=== PATIENT | female | born 1945 | race Caucasian/White ===

== ENCOUNTER 2018-01-30 18:44 | Inpatient (IN) ==
[2018-01-30] MEDS ORDERED: Heparin 10,000 UNITS/10 ML Vial (for IV use) IV.PUSH STA ×2 (19:02→20:54)
[2018-01-30] MEDS ORDERED: Succinylcholine Inj 100 MG/5 ML Syringe IV.PUSH ONE (19:11)
[2018-01-30] MEDS ORDERED: Etomidate Inj 20 MG/10 ML Ampul IV.PUSH ONE (19:11)
[2018-01-30] MEDS ORDERED: Sod Chloride 0.9% Inj 1,000 ML IV.SIG SCH (19:15)
[2018-01-30] MEDS ORDERED: Succinylcholine Inj 200 MG/10 ML Vial IV.PUSH ONE (19:15)
--- NOTE | 2018-01-30 19:36 | XR ---
EXAM DATE: 01/30/2018 7:30 PM EDT AGE/SEX: 72 years / Female INDICATIONS: Shortness of breath. CLINICAL DATA: This is the patient's initial encounter. Patient reports that signs and symptoms have been present for 1 day and indicates a pain score of 0/10. MEDICAL/SURGICAL HISTORY: None. None. COMPARISON: No prior exams available for comparison. FINDINGS: There is mild haziness to the perivascular structures most likely pulmonary edema. Slight cardiomegaly seen. Focal consolidation is not seen. CONCLUSION: Slight CHF. Electronically signed by: Renetta Santos MD 01/30/2018 7:35 PM EDT
--- NOTE | 2018-01-30 19:43 | ED ---
HPI General Chief Complaint: Chest Pain Stated Complaint: sob/chest pain Time Seen by Provider: 01/30/18 18:55 Source: patient and family Mode of arrival: ambulatory Limitations: altered mental status History of Present Illness HPI narrative: 72-year-old female complains of chest pain and shortness of breath. Patient states that the chest pain started last night. Patient states that the chest pain pressure pain across the anterior chest without radiation. Patient denies palpitation nausea diaphoresis. Patient has history of COPD. Patient is on home O2. Patient states that his chest pain short of breath is worse this afternoon. Patient became lethargic and dusky on the face. Patient was driven by her to the emergency room by private vehicle. Upon arrival patient's lethargic and unable to provide information. Patient has history of hypertension. Patient's denies any history of diabetes or high lipidemia. Patient is a non-smoker. Patient has been reported no history OH or CAD. MD complaint: chest pain Complete Quality Measures for STEMI Alert Patients STEMI Alert: No Onset (ago): hour(s) Duration: constant Onset: during rest Pain location: substernal Severity: moderate Severity scale (1-10): 5 Quality: tightness and heaviness Pain radiation: none Relieving factors: nothing Exacerbating factors: nothing Associated symptoms: dyspnea Related Data Home Medications Medication Instructions Recorded Confirmed Lactobacillus acidophilus 100 mg PO DAILY 01/30/18 01/30/18 [Acidophilus] acetylcysteine 01/30/18 alprazolam 1 mg PO DAILY 01/30/18 01/30/18 amlodipine [Norvasc] 10 mg PO DAILY 01/30/18 01/30/18 carvedilol 6.25 mg PO BID 01/30/18 01/30/18 cetirizine 10 mg PO DAILY 01/30/18 01/30/18 cranberry 400 mg PO DAILY 01/30/18 01/30/18 cyanocobalamin (vitamin B-12) 1,000 mcg PO DAILY 01/30/18 01/30/18 dicyclomine 20 mg PO QID 01/30/18 01/30/18 dorzolamide [Trusopt] 1 drp OPHTHALMIC (EYE) TID 01/30/18 01/30/18 ferrous sulfate 325 mg PO DAILY 01/30/18 01/30/18 fluocinonide 1 applic TOPICAL BID 01/30/18 01/30/18 fluoxetine [Prozac] 40 mg PO BID 01/30/18 01/30/18 fluticasone [Flovent HFA] 1 puff INHALATION Q12H 01/30/18 01/30/18 furosemide [Lasix] 40 mg PO BID 01/30/18 01/30/18 gabapentin 600 mg PO TID 01/30/18 01/30/18 hydrocortisone 1 applic TOPICAL BID 01/30/18 01/30/18 hyoscyamine sulfate [Levsin] 0.125 mg PO QID 01/30/18 01/30/18 ipratropium bromide [Atrovent HFA] 1 puff INHALATION Q6H 01/30/18 01/30/18 lansoprazole [Prevacid] 30 mg PO DAILY 01/30/18 01/30/18 levalbuterol HCl [Xopenex] 1.25 mg INHALATION Q4-6H PRN 01/30/18 01/30/18 levofloxacin [Levaquin] 5 mg/kg PO Q12H 01/30/18 01/30/18 levothyroxine 50 mcg PO DAILY 01/30/18 01/30/18 lidocaine HCl 1 applic TOPICAL DAILY PRN 01/30/18 01/30/18 melatonin 10 mg PO HS PRN 01/30/18 01/30/18 metronidazole 1 applic TOPICAL DAILY 01/30/18 01/30/18 mometasone [Elocon] 1 applic TOPICAL DAILY 01/30/18 01/30/18 mometasone [Nasonex] 2 spray INTRANASAL DAILY 01/30/18 01/30/18 montelukast [Singulair] 10 mg PO QPM 01/30/18 01/30/18 multivitamin 1 tab PO DAILY 01/30/18 01/30/18 omega 2-lnm-dba-fish oil [[place]-3] 01/30/18 ondansetron HCl 4 mg PO Q6-8H PRN 01/30/18 01/30/18 potassium chloride [Klor-Con M20] 20 meq PO BID 01/30/18 01/30/18 pravastatin [Pravachol] 40 mg PO DAILY 01/30/18 01/30/18 ramelteon [Rozerem] 01/30/18 ropinirole [Requip] 0.25 mg PO TID 01/30/18 01/30/18 spironolactone [Aldactone] 01/30/18 temazepam [Restoril] 01/30/18 ziprasidone HCl [Geodon] 40 mg PO BID 01/30/18 01/30/18 Allergies Allergy/AdvReac Type Severity Reaction Status Date / Time EARL Inhibitors Allergy Anaphylaxis Verified 01/30/18 19:58 Alpha 2 Adrenergic Agonist Allergy Anaphylaxis Verified 01/30/18 19:58 ARB-Angiotensin Receptor Allergy Anaphylaxis Verified 01/30/18 19:59 Antagonist cefaclor Allergy Anaphylaxis Verified 01/30/18 20:01 codeine Allergy Anaphylaxis Verified 01/30/18 20:01 hydralazine Allergy Anaphylaxis Verified 01/30/18 20:02 hydrocodone Allergy Anaphylaxis Verified 01/30/18 20:03 levofloxacin Allergy Anaphylaxis Verified 01/30/18 20:03 meperidine Allergy Anaphylaxis Verified 01/30/18 20:04 nifedipine Allergy Anaphylaxis Verified 01/30/18 20:08 pseudoephedrine Allergy Anaphylaxis Verified 01/30/18 20:09 [From Sudafed] Sulfa (Sulfonamide Allergy Anaphylaxis Verified 01/30/18 20:09 Antibiotics) terconazole Allergy Anaphylaxis Verified 01/30/18 20:10 topiramate Allergy Anaphylaxis Verified 01/30/18 20:11 Review of Systems ROS: all other systems reviewed are negative PMFSH History History Provided By: Patient and Family Member Social History Social History Substance History: Unable to Obtain Smoking Status: Cognitive impairment How Often Do You Have a Drink Containing Alcohol: Unable to Obtain [facility] within the Last 8 Weeks: No Recent Out of Country Travel within the Last 8 Weeks: No Exam Narrative Exam Narrative: GENERAL: Well-nourished, well-developed patient. SKIN: Focused skin assessment warm/dry. HEAD: Normocephalic. EYES: No scleral icterus. No injection or drainage. Pupils 1.5 mm equal reactive. NECK: Supple, trachea midline. No JVD or lymphadenopathy. CARDIOVASCULAR: Regular rate and rhythm without murmurs, gallops, or rubs. RESPIRATORY: Lungs with poor air exchange, decreased breath sounds bilaterally with expiratory wheezes and diffuse rhonchi. GASTROINTESTINAL: Abdomen soft, non-tender, nondistended. MUSCULOSKELETAL: No cyanosis, or edema. BACK: Nontender without obvious deformity. No CVA tenderness. Neurologic exam: Patient is lethargic on arrival however more awake and alert and talking after was given BiPAP and oxygen treatment. Patient moves all extremity well. No obvious focal neurological deficit. Procedures Intubation Time Out Performed: Yes Sedative: etomidate Mg Given: 20 Paralytic: succinylcholine Mg Given: 100 Laryngoscope: fiber optic video scope Assist Device Used: fiber optic device ET Tube Size: 7.5 ET Tube Uncuffed: No Tube Secured Depth (cm): 23 Tube Secured Location: lips Tube Placement Confirmation: visualized tube passing through cords, equal breath sounds bilaterally, no breath sounds over epigastrium and confirmation by capnometry Patient Tolerated Procedure: well Intubation Complications: none Course Initial Documented Vital Signs Temperature 97.9 F 01/30/18 19:04 Pulse Rate 87 01/30/18 19:04 Respiratory Rate 22 01/30/18 19:04 Pulse Oximetry 100 01/30/18 19:04 Last Documented Vital Signs Temperature 97.9 F 01/30/18 19:04 Pulse Rate 69 01/30/18 21:27 Respiratory Rate 14 01/30/18 21:27 Blood Pressure 136/61 01/30/18 21:27 Pulse Oximetry 100 01/30/18 20:49 Critical Care Time Critical Care Time: Yes Total Critical Care Time: 60 Attestation: Aggregate critical care time was 60 minutes. Time to perform other separately billable procedures was not included in the critical care time. My time did not include minutes spent treating any other patients simultaneously or on activities that did not directly contribute to the patient's treatment. The services I provided to this patient were to treat and/or prevent clinically significant deterioration that could result in: I provided critical care services requiring my management, as noted below: Chart data review, documentation time, medication orders and management, vital sign assessments/reviewing monitor data, ordering and reviewing lab tests, ordering and interpreting/reviewing x-rays and diagnostic studies, care of the patient and discussion of the patient with the admitting physicians. Medical Decision Making MDM Narrative Medical decision making narrative: 72-year-old female presented with dusky face , respiratory distress, altered mental status. History of COPD. Patient having chest pain for the past 2 days. Patient was given BiPAP immediately and albuterol Atrovent unit dose treatment 3 immediately. Patient improved upon respiratory treatment and started talking and states that she having chest pain for the past 2 days. Patient denies any headache. Patient denies any abdominal pain. Patient denies any focal weakness or numbness of the extremity. EKG showed ST depression in inferior leads and ST elevation in anterior leads. EKG was sent to carpet or rug layer helper [employer]eg[employer] console operator track Dr. Burgess. Dr. Burgess advised intubation, CT scan of the brain and proceed subsequently. Patient was intubated without complication. Repeat EKG shows sinus rhythm nonspecific ST-T wave change. Patient was given heparin bolus and drip. Patient will be transferred to the intensive care at the [facility]. I spoke with Dr. Lopez, tool engineer who agreed to accept the patient. Medical Screen Exam Complete: Yes Emergency Medical Condition: Yes Lab Data Lab results reviewed: Yes I reviewed the patient's lab results. Result diagrams: 01/30/18 19:30 Lab Results 01/30/18 01/30/18 01/30/18 Range/Units 19:30 19:30 19:30 CBC w Diff Auto diff final WBC 11.8 H (4.0-11.0) th/mm3 RBC 3.48 L (4.00-5.30) mil/mm3 Hgb 10.5 L (11.6-15.3) gm/dL Hct 32.0 L (35.0-46.0) % MCV 92.1 (80.0-100.0) fL MCH 30.1 (27.0-34.0) pg MCHC 32.7 (32.0-36.0) % RDW 13.2 (11.6-17.2) % Plt Count 296 (150-450) th/mm3 MPV 7.7 (7.0-11.0) fL Neut % (Auto) 79.4 H (16.0-70.0) % Lymph % (Auto) 12.9 (9.0-44.0) % [place] % (Auto) 3.4 (0.0-8.0) % Eos % (Auto) 3.7 (0.0-4.0) % Baso % (Auto) 0.6 (0.0-2.0) % Neut # (Auto) 9.4 H (1.8-7.7) th/mm3 Lymph # (Auto) 1.5 (1.0-4.8) th/mm3 [place] # (Auto) 0.4 (0.0-0.9) th/mm3 Eos # (Auto) 0.4 (0.0-0.4) th/mm3 Baso # (Auto) 0.1 (0.0-0.2) th/mm3 WBC Differential . Differential Comment . PT 10.2 (9.8-11.6) sec INR 1.0 Ratio APTT 24.2 L (24.3-30.1) sec Puncture Site Patient Temperature O2 Saturation (90-100) % ABG pH (7.380-7.420) ABG pCO2 (38-42) mmHg ABG pO2 (61-120) mmHg ABG HCO3 (22-26) mmol/L ABG O2 Content (12.0-20.0) Vol % ABG Base Excess (-2-2) mmol/L ABG Methemoglobin (0-2) % Matteo Test Hemoglobin (12.0-16.0) G/DL Carboxyhemoglobin (0-4) % O2 Delivery Device Vent Setting Inspired O2 % Critical Value Calcium 8.4 L (8.5-10.1) mg/dL Magnesium 1.9 (1.5-2.5) mg/dL Total Creatine Kinase 77 (26-192) U/L Troponin I 0.03 (0.02-0.05) ng/mL B-Natriuretic Peptide (0-100) pg/mL 01/30/18 01/30/18 Range/Units 19:30 21:38 CBC w Diff WBC (4.0-11.0) th/mm3 RBC (4.00-5.30) mil/mm3 Hgb (11.6-15.3) gm/dL Hct (35.0-46.0) % MCV (80.0-100.0) fL MCH (27.0-34.0) pg MCHC (32.0-36.0) % RDW (11.6-17.2) % Plt Count (150-450) th/mm3 MPV (7.0-11.0) fL Neut % (Auto) (16.0-70.0) % Lymph % (Auto) (9.0-44.0) % [place] % (Auto) (0.0-8.0) % Eos % (Auto) (0.0-4.0) % Baso % (Auto) (0.0-2.0) % Neut # (Auto) (1.8-7.7) th/mm3 Lymph # (Auto) (1.0-4.8) th/mm3 [place] # (Auto) (0.0-0.9) th/mm3 Eos # (Auto) (0.0-0.4) th/mm3 Baso # (Auto) (0.0-0.2) th/mm3 WBC Differential Differential Comment PT (9.8-11.6) sec INR Ratio APTT (24.3-30.1) sec Puncture Site Right radial Patient Temperature 98.6 O2 Saturation 98 (90-100) % ABG pH 7.35 L (7.380-7.420) ABG pCO2 53 H* (38-42) mmHg ABG pO2 429 H (61-120) mmHg ABG HCO3 29 H (22-26) mmol/L ABG O2 Content 14.1 (12.0-20.0) Vol % ABG Base Excess 3.3 H (-2-2) mmol/L ABG Methemoglobin 1.4 (0-2) % Matteo Test Y Hemoglobin 9.5 L (12.0-16.0) G/DL Carboxyhemoglobin 1.1 (0-4) % O2 Delivery Device Ventilator Vent Setting Prvc/ac Inspired O2 100 % Critical Value Yes Calcium (8.5-10.1) mg/dL Magnesium (1.5-2.5) mg/dL Total Creatine Kinase (26-192) U/L Troponin I (0.02-0.05) ng/mL B-Natriuretic Peptide 207 H (0-100) pg/mL Imaging Data Attestation: I personally reviewed and interpreted this imaging study as follows : Radiologist's impression: Chest X-Ray 01/30/18 19:03 CONCLUSION: Slight CHF. Head CT 01/30/18 19:12 CONCLUSION: Unremarkable study except for mild chronic sinusitis. Chest X-Ray 01/30/18 19:13 CONCLUSION: Slight CHF. Discharge Plan Discharge Disposition Patient Disposition: 30 Still Patient Discharge Details Diagnosis: Respiratory failure, Chest pain Physicians Team ED Provider: Erickson Pena Primary Care Provider: UNKNOWN, Attending Provider: Pablito Lopez Status ED Status: Admitted Patient
[2018-01-30 19:45] LABS: Baso # (Auto) 0.1 th/mm3 (0.0-0.2); Baso % (Auto) 0.6 % (0.0-2.0); Eos # (Auto) 0.4 th/mm3 (0.0-0.4); Eos % (Auto) 3.7 % (0.0-4.0); Hemoglobin 10.5 gm/dL (11.6-15.3); Lymph # (Auto) 1.5 th/mm3 (1.0-4.8); Lymph % (Auto) 12.9 % (9.0-44.0); Mean Corpuscular HGB Conc 32.7 % (32.0-36.0); Mean Corpuscular Hemoglobin 30.1 pg (27.0-34.0); Mean Corpuscular Volume 92.1 fL (80.0-100.0); Mean Platelet Volume 7.7 fL (7.0-11.0); Mono # (Auto) 0.4 th/mm3 (0.0-0.9); Mono % (Auto) 3.4 % (0.0-8.0); Neut # (Auto) 9.4 th/mm3 (1.8-7.7); Neut % (Auto) 79.4 % (16.0-70.0); Platelet Count 296 th/mm3 (150-450); Red Blood Count 3.48 mil/mm3 (4.00-5.30); Red Cell Distribution Width 13.2 % (11.6-17.2); White Blood Count 11.8 th/mm3 (4.0-11.0)
[2018-01-30 19:53] LABS: Calcium 8.4 mg/dL (8.5-10.1)
[2018-01-30 19:54] LABS: Magnesium 1.9 mg/dL (1.5-2.5)
[2018-01-30] MEDS: Propofol 1000 mg/100 ml Inj 1,000 MG/100 ML BOTTLE IV.CONT PRN ×2 (19:55→22:45)
[2018-01-30 19:56] LABS: Activated Partial Thrombo Time 24.2 sec (24.3-30.1); Prothrombin Time 10.2 sec (9.8-11.6)
[2018-01-30] MEDS ORDERED: fentaNYL 10 mcg/mL Premix Drip 2,500 MCG/250 ML BAG IV.SIG PRN (19:59)
[2018-01-30 20:02] LABS: Troponin I 0.03 ng/mL (0.02-0.05)
--- NOTE | 2018-01-30 20:16 | XR ---
EXAM DATE: 01/30/2018 8:00 PM EDT AGE/SEX: 72 years / Female INDICATIONS: Post intubation. CLINICAL DATA: This is the patient's subsequent encounter. Patient reports that signs and symptoms h ave been present for 1 day and indicates a pain score of Nonresponsive. MEDICAL/SURGICAL HISTORY: None. None. COMPARISON: [facility], CHEST 1V SINGLE AP, 01/30/2018. . FINDINGS: There is mild haziness to the perivascular structures most likely pulmonary edema. Slight cardiomegaly seen. Focal consolidation is not seen. ET tube is present with tip overlapping approxim ately 2 above the shiv. CONCLUSION: Slight CHF. Electronically signed by: Renetta Santos MD 01/30/2018 8:14 PM EDT
--- NOTE | 2018-01-30 20:43 | CT ---
EXAM DATE: 01/30/2018 8:38 PM EDT AGE/SEX: 72 years / Female INDICATIONS: Altered mental status. CLINICAL DATA: This is the patient's initial encounter. Patient reports that signs and symptoms have been present for 1 day and indicates a pain score of Nonresponsive. MEDICAL/SURGICAL HISTORY: Non-responsive. Non-responsive. RADIATION DOSE: 56.61 CTDI (mGy) COMPARISON: No prior exams available for comparison. TECHNIQUE: CT of the head without contrast. Using automated exposure control and adjustment of the mA and/or kV according to patient size, radiation dose was kept as low as reasonably achievable to ob tain optimal diagnostic quality images. DICOM format image data is available electronically for revi ew and comparison. FINDINGS: There is no evidence for intracranial hemorrhage, mass effect, mass lesions, edema, or extr a-axial fluid collections. The visualized bony structures appear intact. The ventricles are normal size for the patient's age. There are no signs of acute infarction for technique. There is mucoperi osteal thickening within multiple sinuses. CONCLUSION: Unremarkable study except for mild chronic sinusitis. Electronically signed by: Renetta Santos MD 01/30/2018 8:42 PM EDT
[2018-01-30] MEDS: Heparin Drip 25,000 UNIT/250 ML BAG IV.CONT PRN (21:19)
[2018-01-30 21:50] LABS: ABG Base Excess 3.3 mmol/L (-2-2); ABG PCO2 53 mmHg (38-42); ABG PO2 429 mmHg (61-120)
[2018-01-30] MEDS ORDERED: MethylPREDNISolone Sod Succinate Inj 125 MG/2 ML Vial IV.PUSH ONE (21:58)
[2018-01-30 23:17] LABS: Bilirubin,Urine Negative (Negative); Clarity,Urine Slightly Cloudy (Clear); Color,Urine Yellow (Yellw/Straw); Glucose,Urine (UA) Negative (Negative); Leukocyte Esterase,Urine Negative (Negative); Nitrite,Urine Positive (Negative); Urobilinogen,Urine 0.2 mg/dL (Less than 2)
[2018-01-30 23:21] LABS: Bacteria,Urine Many /hpf; RBC,Urine 0-3 /hpf (0-3); Squamous Epithelial Cell,Urine 0-5 /hpf (0-5)
[2018-01-30 23:22] LABS: Hyaline Casts,Urine 0-3 /lpf (0-3)
--- NOTE | 2018-01-30 23:43 | P.HPCC ---
History of Present Illness Primary Care Physician: UNKNOWN History of Present Illness: 72-year-old female presented to the emergency department at [facility] with complaints of chest pain and shortness of breath. Per chart review the chest pain started last night. The nature of the chest pain was pressure pain across the anterior chest without radiation. No palpitation nausea diaphoresis. Patient has history of COPD. The patient is on home O2. Per chart review the chest pain associated with shortness of breath was worsening this afternoon. Patient became lethargic and dusky on the face. Patient was driven by her to the emergency room by private vehicle. Upon arrival patient was lethargic and unable to provide information. She was intubated by ED attending for an airway protection. The case was discussed by project management analyst on-call Dr. Burgess and the patient has been transferred to [facility] for higher level of care possible cardiac catheterization. Inpatient Certification: I certify that the inpatient services were ordered in accordance with Medicare regulations governing the order. This includes certification that hospital inpatient services are reasonable and necessary and in the case of services not specified as inpatient-only under 42 CFR 419.22(n), that they are appropriately provided as inpatient services in accordance to with the 2-midnight benchmark under 43 CFR 412.3(e) Review of Systems unobtainable due to endotracheal tube PMFSH - History History Provided By: Patient, Family Member - Tobacco History Smoking Status: Cognitive impairment - Alcohol History How Often Do You Have a Drink Containing Alcohol: Unable to Obtain - Substance Use History Substance History: Unable to Obtain - Travel History Recent Travel in the [place] Within the Last 8 Weeks: No Recent Travel Out of the Country Within the Last 8 Weeks: No - Immunization History Tetanus Immunization: Unable to Assess Hx Influenza Vaccine This Season: Unable to Assess Medications and Allergies Active Medications: Active Medications Sodium Chloride (Ns Inj) 1,000 mls @ 30 mls/hr IV.SIG .Q24H SLOANE Stop: 01/31/18 19:14 Last Admin: 01/30/18 21:03 Dose: 30 mls/hr Propofol (Diprivan 1000 Mg/100 Ml Inj) 1,000 mg in 100 mls @ 3.239 mls/hr IV.CONT TITRATE PRN; Protocol PRN Reason: Per Protocol Last Admin: 01/30/18 22:45 Dose: 25 mcg/kg/min, 16.19 mls/hr Fentanyl (Fentanyl 10 Mcg/Ml Premix Drip) 2,500 mcg in 250 mls @ 5 mls/hr IV.SIG TITRATE PRN; Protocol PRN Reason: Per Protocol Last Titration: 01/30/18 22:49 Dose: 100 mcg/hr, 10 mls/hr Heparin Sodium/Dextrose (Heparin/D5w 25,000 U/250 Ml) 25,000 unit in 250 mls @ 0 mls/hr IV.CONT TITRATE PRN; Protocol PRN Reason: Per Protocol Last Admin: 01/30/18 21:19 Dose: 1,000 units/hr, 10 mls/hr Sodium Chloride (Ns Flush) 2 ml IV.FLUSH PRN PRN PRN Reason: FLUSH AFTER USING IV ACCESS Allergies Allergy/AdvReac Type Severity Reaction Status Date / Time EARL Inhibitors Allergy Anaphylaxis Verified 01/30/18 19:58 Alpha 2 Adrenergic Agonist Allergy Anaphylaxis Verified 01/30/18 19:58 ARB-Angiotensin Receptor Allergy Anaphylaxis Verified 01/30/18 19:59 Antagonist cefaclor Allergy Anaphylaxis Verified 01/30/18 20:01 codeine Allergy Anaphylaxis Verified 01/30/18 20:01 hydralazine Allergy Anaphylaxis Verified 01/30/18 20:02 hydrocodone Allergy Anaphylaxis Verified 01/30/18 20:03 levofloxacin Allergy Anaphylaxis Verified 01/30/18 20:03 meperidine Allergy Anaphylaxis Verified 01/30/18 20:04 nifedipine Allergy Anaphylaxis Verified 01/30/18 20:08 pseudoephedrine Allergy Anaphylaxis Verified 01/30/18 20:09 [From [facility]] Sulfa (Sulfonamide Allergy Anaphylaxis Verified 01/30/18 20:09 Antibiotics) terconazole Allergy Anaphylaxis Verified 01/30/18 20:10 topiramate Allergy Anaphylaxis Verified 01/30/18 20:11 Home Medications Medication Instructions Recorded Confirmed Type Lactobacillus acidophilus 100 mg PO DAILY 01/30/18 01/30/18 History [Acidophilus] acetylcysteine 01/30/18 History alprazolam 1 mg PO DAILY 01/30/18 01/30/18 History amlodipine [Norvasc] 10 mg PO DAILY 01/30/18 01/30/18 History carvedilol 6.25 mg PO BID 01/30/18 01/30/18 History cetirizine 10 mg PO DAILY 01/30/18 01/30/18 History cranberry 400 mg PO DAILY 01/30/18 01/30/18 History cyanocobalamin (vitamin B-12) 1,000 mcg PO DAILY 01/30/18 01/30/18 History dicyclomine 20 mg PO QID 01/30/18 01/30/18 History dorzolamide [Trusopt] 1 drp OPHTHALMIC (EYE) TID 01/30/18 01/30/18 History ferrous sulfate 325 mg PO DAILY 01/30/18 01/30/18 History fluocinonide 1 applic TOPICAL BID 01/30/18 01/30/18 History fluoxetine [Prozac] 40 mg PO BID 01/30/18 01/30/18 History fluticasone [Flovent HFA] 1 puff INHALATION Q12H 01/30/18 01/30/18 History furosemide [Lasix] 40 mg PO BID 01/30/18 01/30/18 History gabapentin 600 mg PO TID 01/30/18 01/30/18 History hydrocortisone 1 applic TOPICAL BID 01/30/18 01/30/18 History hyoscyamine sulfate [Levsin] 0.125 mg PO QID 01/30/18 01/30/18 History ipratropium bromide [Atrovent HFA] 1 puff INHALATION Q6H 01/30/18 01/30/18 History lansoprazole [Prevacid] 30 mg PO DAILY 01/30/18 01/30/18 History levalbuterol HCl [Xopenex] 1.25 mg INHALATION Q4-6H PRN 01/30/18 01/30/18 History levofloxacin [Levaquin] 5 mg/kg PO Q12H 01/30/18 01/30/18 History levothyroxine 50 mcg PO DAILY 01/30/18 01/30/18 History lidocaine HCl 1 applic TOPICAL DAILY PRN 01/30/18 01/30/18 History melatonin 10 mg PO HS PRN 01/30/18 01/30/18 History metronidazole 1 applic TOPICAL DAILY 01/30/18 01/30/18 History mometasone [Elocon] 1 applic TOPICAL DAILY 01/30/18 01/30/18 History mometasone [Nasonex] 2 spray INTRANASAL DAILY 01/30/18 01/30/18 History montelukast [Singulair] 10 mg PO QPM 01/30/18 01/30/18 History multivitamin 1 tab PO DAILY 01/30/18 01/30/18 History omega 0-tbs-ovu-fish oil [[place]-3] 01/30/18 History ondansetron HCl 4 mg PO Q6-8H PRN 01/30/18 01/30/18 History potassium chloride [Klor-Con M20] 20 meq PO BID 01/30/18 01/30/18 History pravastatin [Pravachol] 40 mg PO DAILY 01/30/18 01/30/18 History ramelteon [Rozerem] 01/30/18 History ropinirole [Requip] 0.25 mg PO TID 01/30/18 01/30/18 History spironolactone [Aldactone] 01/30/18 History temazepam [Restoril] 01/30/18 History ziprasidone HCl [Geodon] 40 mg PO BID 01/30/18 01/30/18 History Results - Labs CBC & Chem 7: 01/30/18 19:30 Labs: Short CBC 01/30/18 Range/Units 19:30 WBC 11.8 H (4.0-11.0) th/mm3 Hgb 10.5 L (11.6-15.3) gm/dL Hct 32.0 L (35.0-46.0) % Plt Count 296 (150-450) th/mm3 BMP 01/30/18 19:30 Calcium 8.4 L Cardiac Enzymes 01/30/18 Range/Units 19:30 Total Creatine Kinase 77 (26-192) U/L Troponin I 0.03 (0.02-0.05) ng/mL Urine 01/30/18 Range/Units 23:00 Urine Color Yellow (Yellw/Straw) Urine Clarity Slightly cloudy (Clear) Urine pH 6.0 (5.0-8.5) Ur Specific [place] 1.020 (1.002-1.035) Urine Protein 100 H (Neg-Trace) mg/dL Urine Glucose (UA) Negative (Negative) mg/dL - Imaging Impressions Chest X-Ray 01/30/18 19:03 CONCLUSION: Slight CHF. Head CT 01/30/18 19:12 CONCLUSION: Unremarkable study except for mild chronic sinusitis. Chest X-Ray 01/30/18 19:13 CONCLUSION: Slight CHF. Exam Vital signs: Vital Signs 01/30/18 19:00 01/30/18 19:04 01/30/18 19:33 Temperature 97.9 F Pulse Rate 87 Respiratory Rate 22 20 Blood Pressure Pulse Oximetry 98 100 100 01/30/18 19:40 01/30/18 19:50 01/30/18 20:10 Temperature Pulse Rate 114 H 107 H 89 Respiratory Rate 20 18 18 Blood Pressure 146/100 H 165/113 H 140/52 L Pulse Oximetry 100 100 100 01/30/18 20:49 01/30/18 21:27 01/30/18 22:03 Temperature Pulse Rate 72 69 66 Respiratory Rate 14 16 Blood Pressure 121/55 L 136/61 137/63 Pulse Oximetry 100 100 01/30/18 22:40 Temperature Pulse Rate 68 Respiratory Rate 16 Blood Pressure 146/66 H Pulse Oximetry 100 Intake & Output 01/30/18 01/30/18 01/31/18 06:59 18:59 06:59 Intake Total 100 / 100 Balance 100 / 100 Weight 107.955 kg Intake: IV 100 / 100 Diprivan 1000 mg/100 ml Inj 1, 100 / 100 000 mg In 100 ml @ 5 MCG/KG/MIN 3.239 mls/hr IV.CONT TITRATE PRN Rx#:[id number] - Constitutional moderate distress - Routine HEENT Exam Head: Present: atraumatic Eye: Present: PERRL ENT: Present: mucous membranes moist - Routine Neck Exam Absent: JVD, carotid bruit - Routine Respiratory Exam Present: patient mechanically ventilated. Absent: rhonchi, stridor, wheezes - Routine Cardiovascular Exam Present: RRR, S1, S2 - Routine Abdominal Exam Present: soft, normoactive bowel sounds. Absent: tenderness, distended - Routine Extremities Exam Absent: cyanosis, clubbing, edema - Routine Skin Exam Present: intact. Absent: cyanosis - Routine Neurological Exam Present: moving all extremities Caprini VTE Risk Assessment Caprini VTE Risk Assessment: Moderate/High Risk (score >= 2) Caprini Risk Assessment Model: Point Value = 1 Point Value = 2 Point Value = 3 Point Value = 5 Age 41-60 Minor surgery BMI > 25 kg/m2 Swollen legs Varicose veins or History of unexplained or recurrent spontaneous Oral contraceptives or hormone replacement Sepsis (< 1 month) Serious lung disease, including pneumonia (< 1 month) Abnormal pulmonary function Acute myocardial infarction Congestive heart failure (< 1 month) History of inflammatory bowel disease Medical patient at bed rest Age 61-74 Arthroscopic surgery Major open surgery (> 45 min) Laparoscopic surgery (> 45 min) Malignancy Confined to bed (> 72 hours) Immobilizing plaster cast Central venous access Age >= 75 History of VTE Family history of VTE Factor V Leiden Prothrombin [id number] Lupus anticoagulant Anticardiolipin antibodies Elevated serum homocysteine Heparin-induced thrombocytopenia Other congenital or acquired thrombophilia Stroke (< 1 month) Elective arthroplasty Hip, pelvis, or leg fracture Acute spinal cord injury (< 1 month) Prophylaxis Regimen: Total Risk Factor Score Risk Level Prophylaxis Regimen 0-1 Low Early ambulation 2 Moderate Order ONE of the following: *Sequential Compression Device (SCD) *Heparin 5000 units SQ BID 3-4 Higher Order ONE of the following medications: *Heparin 5000 units SQ TID *Enoxaparin/Lovenox 40 mg SQ daily (WT < 150 kg, CrCl > 30 mL/min) *Enoxaparin/Lovenox 30 mg SQ daily (WT < 150 kg, CrCl > 10-29 mL/min) *Enoxaparin/Lovenox 30 mg SQ BID (WT < 150 kg, CrCl > 30 mL/min) AND/OR *Sequential Compression Device (SCD) 5 or more Highest Order ONE of the following medications: *Heparin 5000 units SQ TID (Preferred with Epidurals) *Enoxaparin/Lovenox 40 mg SQ daily (WT < 150 kg, CrCl > 30 mL/min) *Enoxaparin/Lovenox 30 mg SQ daily (WT < 150 kg, CrCl > 10-29 mL/min) *Enoxaparin/Lovenox 30 mg SQ BID (WT < 150 kg, CrCl > 30 mL/min) AND *Sequential Compression Device (SCD) Assessment and Plan - Assessment and Plan Plan: Respiratory failure -Underlying COPD -Possible acute coronary syndrome -Intubated for an airway protection -No weaning until hemodynamically improve -Vent bundle COPD -No exacerbation -No indication for steroid -DuoNeb scheduled and as needed Acute coronary syndrome -Cardiology consultation appreciated -Heparin drip -Continue beta-jorge Coreg -Pravastatin -Further management per Dr. Burgess Hypertension -Norvasc -Carvedilol Anxiety -Xanax scheduled and as needed Iron deficiency anemia -Ferrous Sulfate Depression -Fluoxetine DVT GI prophylaxis -Teds SCDs -Heparin drip -Pepcid 35 minutes of critical care
[2018-01-31] MEDS ORDERED: Melatonin 5 MG Tablet PO PRN (00:04)
[2018-01-31] MEDS ORDERED: Bisacodyl 10 MG Supp RECTAL PRN (00:10)
[2018-01-31] MEDS ORDERED: Acetaminophen 325 MG Tablet PO PRN (00:10)
[2018-01-31] MEDS ORDERED: Morphine Inj 4 MG/ML Vial IV.PUSH PRN (00:10)
[2018-01-31] MEDS ORDERED: levoFLOXacin 500 MG Tablet PO SCH (00:15)
[2018-01-31] MEDS: Sod Chloride 0.9% Inj 1,000 ML IV.CONT SCH ×2 (01:16→13:41)
[2018-01-31 02:31] LABS: Baso % (Auto) 0.4 % (0.0-2.0); Eos % (Auto) 0.4 % (0.0-4.0); Hematocrit 28.1 % (35.0-46.0); Hemoglobin 9.2 gm/dL (11.6-15.3); Lymph # (Auto) 0.4 th/mm3 (1.0-4.8); Lymph % (Auto) 3.1 % (9.0-44.0); Mean Corpuscular HGB Conc 32.8 % (32.0-36.0); Mean Corpuscular Hemoglobin 30.2 pg (27.0-34.0); Mean Platelet Volume 7.9 fL (7.0-11.0); Mono # (Auto) 0.3 th/mm3 (0.0-0.9); Mono % (Auto) 2.4 % (0.0-8.0); Neut # (Auto) 10.6 th/mm3 (1.8-7.7); Neut % (Auto) 93.7 % (16.0-70.0); Platelet Count 199 th/mm3 (150-450); Red Blood Count 3.06 mil/mm3 (4.00-5.30); Red Cell Distribution Width 13.7 % (11.6-17.2); White Blood Count 11.3 th/mm3 (4.0-11.0)
[2018-01-31 02:34] LABS: Activated Partial Thrombo Time 42.5 sec (24.3-30.1); Prothrombin Time 10.6 sec (9.8-11.6)
[2018-01-31 03:04] LABS: Alanine Aminotransferase 27 U/L (10-53); Albumin 3.5 g/dL (3.4-5.0); Anion Gap 8 meq/L (5-15); Aspartate Aminotransferase 21 U/L (15-37); Blood Urea Nitrogen 21 mg/dL (7-18); Calcium 8.6 mg/dL (8.5-10.1); Carbon Dioxide 29.4 meq/L (21.0-32.0); Chloride 102 meq/L (98-107); Glomerular Filtration Rate 77 mL/min (>89); Glucose,Random 158 mg/dL (74-106); Potassium 4.1 meq/L (3.5-5.1); Sodium 139 meq/L (136-145)
[2018-01-31 03:08] LABS: Alkaline Phosphatase 106 U/L (45-117); Total Protein 6.9 g/dL (6.4-8.2); Troponin I 0.18 ng/mL (0.02-0.05)
[2018-01-31] MEDS: Chlorhexidine Gluconate 2% 1 Pack (2 Cloths) TOPICAL SCH (03:09)
[2018-01-31] MEDS: Propofol 1000 mg/100 ml Inj 1,000 MG/100 ML BOTTLE IV.CONT PRN ×2 (03:21→07:24)
[2018-01-31] MEDS: Oral Hygiene Kit OROPHARYNG SCH ×2 (03:24→13:40)
[2018-01-31] MEDS ORDERED: Chlorhexidine Gluconate 2% 1 Pack (2 Cloths) TOPICAL PRN (04:00)
[2018-01-31] MEDS: Levothyroxine 50 MCG Tablet PO SCH (05:36)
[2018-01-31] MEDS ORDERED: Chlorhexidine 0.12% Oral Kit 15 ML UDC OROPHARYNG SCH (08:00)
[2018-01-31] MEDS: Dorzolamide 2% Opth Drops 10 ML Bottle EACH EYE SCH ×3 (08:50→18:00)
[2018-01-31] MEDS: Mometasone Furoate 50 MCG/ACT 17 GM Nasal Spray Bottle EACH NARE SCH (08:50)
[2018-01-31] MEDS: Hydrocortisone 2.5% Cream 30 GM Tube TOPICAL SCH ×2 (08:50→20:14)
[2018-01-31] MEDS: Senna/Docusate Sodium 8.6/50 MG Tablet PO SCH ×2 (08:51→20:12)
[2018-01-31] MEDS: Carvedilol 6.25 MG Tablet PO SCH ×2 (08:51→20:12)
[2018-01-31] MEDS: Lactobacillus Acidophilus/L. Spores Tablet PO SCH (08:51)
[2018-01-31] MEDS: FLUoxetine 20 MG Capsule PO SCH ×2 (08:51→20:11)
[2018-01-31] MEDS: Ferrous Sulfate 325 MG Tablet PO SCH (08:51)
[2018-01-31] MEDS: amLODIPine 10 MG Tablet PO SCH (08:51)
[2018-01-31] MEDS: Gabapentin 300 MG Capsule PO SCH ×3 (08:52→18:00)
[2018-01-31] MEDS: Famotidine PF Inj 20 MG/2 ML Vial IV.PUSH SCH ×2 (08:52→20:11)
[2018-01-31] MEDS: Tiotropium Bromide 18 MCG/ACT Inhaler INH SCH (08:53)
[2018-01-31] MEDS ORDERED: CRANBERRY 400 MG PO SCH (09:00)
[2018-01-31] MEDS ORDERED: METRONIDAZOLE TOPICAL SCH (09:00)
[2018-01-31] MEDS ORDERED: FLUOCINONIDE TOPICAL SCH (09:00)
[2018-01-31] MEDS ORDERED: MOMETASONE TOPICAL SCH (09:00)
--- NOTE | 2018-01-31 10:23 | P.PNCC ---
Subjective Subjective Remarks/Hospital Course: 72-year-old female presented to the emergency department at [facility] with complaints of chest pain and shortness of breath. Per chart review the chest pain started last night. The nature of the chest pain was pressure pain across the anterior chest without radiation. No palpitation nausea diaphoresis. Patient has history of COPD. The patient is on home O2. Per chart review the chest pain associated with shortness of breath was worsening this afternoon. Patient became lethargic and dusky on the face. Patient was driven by her to the emergency room by private vehicle. Upon arrival patient was lethargic and unable to provide information. She was intubated by ED attending for an airway protection. The case was discussed by skewer up on-call Dr. Burgess and the patient has been transferred to [facility] for higher level of care possible cardiac catheterization. 01/31: Patient seen by Dr. Burgess of cardiology; ST elevation in AVR concerning for multi-vessel disease vs demand ischemia. Patient's CXR consistent with CHF, either primary or secondary to demand. Weaning to extubate today. Patient will need ischemic workup/ cath by cardiology when acute issues are improved. Objective Vital Signs / I&O: Vital Signs 01/30/18 19:00 01/30/18 19:04 01/30/18 19:33 Temperature 97.9 F Pulse Rate 87 Respiratory Rate 22 20 Blood Pressure Pulse Oximetry 98 100 100 01/30/18 19:40 01/30/18 19:50 01/30/18 20:10 Temperature Pulse Rate 114 H 112 H 89 Respiratory Rate 20 19 18 Blood Pressure 146/100 H 165/113 H 140/52 L Pulse Oximetry 100 100 100 01/30/18 20:35 01/30/18 20:49 01/30/18 21:27 Temperature Pulse Rate 75 72 69 Respiratory Rate 14 14 Blood Pressure 121/55 L 136/61 Pulse Oximetry 100 01/30/18 22:03 01/30/18 22:40 01/31/18 00:03 Temperature Pulse Rate 66 68 Respiratory Rate 16 16 16 Blood Pressure 137/63 146/66 H Pulse Oximetry 100 100 100 01/31/18 00:05 01/31/18 00:10 01/31/18 00:20 Temperature 98.5 F Pulse Rate 68 63 Respiratory Rate 16 Blood Pressure 154/70 H Pulse Oximetry 100 100 01/31/18 00:29 01/31/18 00:30 01/31/18 02:00 Temperature Pulse Rate 63 57 L Respiratory Rate 16 Blood Pressure Pulse Oximetry 01/31/18 03:44 01/31/18 03:45 01/31/18 04:00 Temperature 98.4 F Pulse Rate 55 L 55 L Respiratory Rate 16 16 16 Blood Pressure 135/61 Pulse Oximetry 100 100 01/31/18 06:00 01/31/18 08:22 Temperature Pulse Rate 54 L Respiratory Rate 16 Blood Pressure Pulse Oximetry 99 Intake & Output 01/30/18 01/31/18 01/31/18 18:59 06:59 18:59 Intake Total 300 / 300 100 / 100 Output Total 450 / 450 Balance -150 / -150 100 / 100 Weight 110 kg Intake: IV 200 / 200 100 / 100 Diprivan 1000 mg/100 ml Inj 1, 200 / 200 100 / 100 000 mg In 100 ml @ 5 MCG/KG/MIN 3.239 mls/hr IV.CONT TITRATE PRN Rx#:[id number] Tube Irrigant 100 / 100 Output: Urine Amount (Catheter) 450 / 450 Indwelling Urethral Catheter 450 / 450 Other: # Bowel Movements 0 Result Diagrams: 02/01/18 03:21 02/01/18 03:21 Objective Remarks: GEN: Elderly female, intubated, no acute distress HEENT: NCAT, PERRL CARDIO: Harsh systolic murmur, regular rate and rhythm LUNGS: Mechanical breath sounds bilaterally, no rhonchi ABD: Soft, non-tender in all quadrants, no guarding or rebound EXT: Trace lower extremity edema bilaterally NEURO: GCS 9T, RASS -1, moves all extremities Assessment and Plan - Assessment and Plan Plan: Respiratory failure -Underlying COPD -Possible acute coronary syndrome vs demand ischemia -Intubated for airway protection, successfully extubated this morning, no encephalopathy or respiratory distress -Vent bundle COPD -No exacerbation -No indication for steroid -DuoNeb scheduled and as needed Acute coronary syndrome/ CHF -Cardiology consultation appreciated, case discussed this morning with Dr. Burgess -Patient's initial EKG on arrival showed ST elevation in aVR and V1 with depressions in inferior leads; these changes all normalized post-intubation -Trop peaked at 0.18, trending down; BNP 200s -Gave 40 mg lasix x 1 prior to extubation, continue home dose -Keep K+ >4.0, Mg >2.0 -Heparin drip, ASA -Continue beta-jorge Coreg -Pravastatin -Echo, eventual cardiac cath Hypertension -Norvasc -Carvedilol Anxiety -Xanax scheduled and as needed Iron deficiency anemia -Ferrous Sulfate Depression -Fluoxetine DVT GI prophylaxis -SCDs -Heparin drip -Pepcid Impression: Now that patient is extubated, can likely [place] [facility] [place] Counseling/ Coordination of Care: Total critical care time: 38 minutes This includes examining the patient, gathering history from someone other than the patient (i.e., chart review), discussing the patient's care with other providers, managing the patient's blood pressure and ventilator settings, ordering and interpreting radiologic studies, ordering and interpreting laboratory studies, managing the patient's sedation requirements, re-evaluation at frequent intervals, and documentation. Critical care time is separate and exclusive from teaching, procedures, or discussions with family.
--- NOTE | 2018-01-31 13:14 | ECG ---
Date Performed: 01/30/2018 Time Performed: 18:48:32 PTAGE: 72 years EKG: Sinus rhythm WITH OCCASIONAL SUPRAVENTRICULAR PREMATURE COMPLEXES NONSPECIFIC ST & T-WAVE ABNORMALITY BORDERLINE ECG The ST segment changes are consistent with subendocardial ischemia or injury. There is no prior t racing and clinical correlation will be important. NO PREVIOUS TRACING DOCTOR: Danielle Diaz Interpretating Date/Time 01/31/2018 13:12:46
--- NOTE | 2018-01-31 13:14 | ECG ---
Date Performed: 01/30/2018 Time Performed: 21:21:24 PTAGE: 72 years EKG: Sinus rhythm MINIMAL ST DEPRESSION BORDERLINE ECG Compared to PREVIOUS TRACING , the premature atrial contractions and the marked ST segment depression have resolved. Serial tracing is suggestive of myocardial ischemia or injury, and clinical correlati on will be important. PREVIOUS TRACIN01/30/2018 18.48 DOCTOR: Danielle Diaz Interpretating Date/Time 01/31/2018 13:13:46
--- NOTE | 2018-01-31 13:15 | ECG ---
Date Performed: 01/31/2018 Time Performed: 06:58:39 PTAGE: 72 years EKG: SINUS BRADYCARDIA WITH FIRST DEGREE AV BLOCK MODERATE ST DEPRESSION PROLONGED QT INTERVAL A BNORMAL ECG Compared to PREVIOUS TRACING , the patient has developed QT prolongation, but no other significant se rial change. PREVIOUS TRACIN01/30/2018 21.21 DOCTOR: Danielle Diaz Interpretating Date/Time 01/31/2018 13:14:19
[2018-01-31] MEDS: Furosemide 40 MG Tablet PO SCH (18:00)
[2018-01-31] MEDS: Montelukast 10 MG Tablet PO SCH (19:20)
[2018-01-31] MEDS: Heparin Drip 25,000 UNIT/250 ML BAG IV.CONT PRN (20:09)
--- NOTE | 2018-01-31 23:39 | MB ---
cc: Mason Burgess DO DATE: 01/31/2018 REASON FOR CONSULTATION: Elevated troponin, abnormal EKG, chest pain. HISTORY OF PRESENT ILLNESS: Tomas Ornelas is a 72-year-old female who presented to [facility] due to chest pain and shortness of breath. The patient is currently intubated, so unable to provide any information and so the history is taken from the chart. Apparently, the chest pain started the night before as well as shortness of breath. It seemed to be on the anterior chest without radiation. She had no palpitations, nausea, diaphoresis. The next day her shortness of breath seemed to get worse and she started becoming more lethargic and dusky in the face and so she was driven by her to the emergency room. On arrival, she was relatively lethargic and unable to provide any information. An EKG was done and called me due to multiple ST depressions as well as elevation in AVR. I asked that if he felt necessary that she should be intubated as it seemed that if she was that lethargic, the work of breathing was over her and so she intubated her and after stabilization, repeated an EKG, which no longer showed ST depressions and elevation of AVR. We decided that she should be transferred to [facility] in case any further cardiovascular workup needed to be done immediately. In seeing her today, she is hemodynamically stable and currently intubated and sedated. PAST MEDICAL HISTORY: 1. COPD on home medications. 2. Hypertension. 3. Neuropathy. 4. Depression. The patient is intubated and unable to provide more information. PAST SURGICAL HISTORY: Unknown. ALLERGIES: EARL INHIBITORS, SULFA, ARBS, ALPHA-2, ADRENERGIC AGONIST, NIFEDIPINE, CODEINE, HYDROCODONE, PSEUDOEPHEDRINE, CEFACLOR, TERCONAZOLE, HYDRALAZINE, MEPERIDINE, TOPIRAMATE, LEVOFLOXACIN. MEDICATIONS: 1. Norvasc 10 mg daily. 2. Xanax 1 mg daily. 3. Geodon 40 mg b.i.d.. 4. Zofran 4 mg every 4 hours as needed. 5. Requip 0.25 mg t.i.d. 6. Pravastatin 40 mg daily. 7. Singulair 10 mg every night. 8. Nasonex 2 sprays intranasal daily. 9. Elocon cream daily. 10. Metronidazole cream daily. 11. Lidocaine topical as needed. 12. Synthroid 50 mcg daily. 13. Levaquin. 14. Xopenex nebulizer 15. Prevacid 30 mg daily. 16. Levsin 0.125 mg q.i.d. 17. Gabapentin 600 mg t.i.d. 18. Lasix 40 mg b.i.d. 19. Flovent inhaler. 20. Prozac 40 mg b.i.d. 21. Iron 325 mg daily. 22. Dicyclomine 20 mg q.i.d. 23. Coreg 6.25 mg b.i.d. 24. Restoril 30 mg. 25. Aldactone 25 mg. 26. Rozerem 8 mg. 27. Potassium 20 mEq b.i.d. 28. Cetirizine 10 mg daily. FAMILY HISTORY: Unable to obtain. SOCIAL HISTORY: Unable to obtain. REVIEW OF SYSTEMS: Unable to obtain due to the patient being intubated and sedated. Per the history from the emergency room, she was having chest pain and shortness of breath since yesterday. PHYSICAL EXAMINATION: VITAL SIGNS: Temperature 97.8, heart rate 54, blood pressure 140/62, respirations 16, pulse oximetry 99% on FiO2 of 40% on the ventilator. GENERAL: The patient is intubated and sedated. HEENT: Pupils are equal and round. NECK: Supple. No JVD at 45 degrees. No carotid bruits heard bilaterally. HEART: Regular rate and rhythm. Positive first and second heart sounds with a 2/6 crescendo-decrescendo murmur to the right sternal border. LUNGS: Decreased breath sounds bilaterally. No overt wheezes, rales or rhonchi. ABDOMEN: Soft, nontender, nondistended. No organomegaly noted. EXTREMITIES: Show trace edema bilaterally. NEUROLOGIC: Unable to obtain. SKIN: Warm, dry and intact. OSTEOPATHIC: Mild lordosis. No kyphoscoliosis or paraspinal tender points. LABORATORY DATA: Hemoglobin 9.2, hematocrit 28.1, platelets 199. Potassium 4.1, BUN 21, creatinine 0.74. Troponin 0.18. Electrocardiogram (01/31/2018 at 0658 hours): Sinus rhythm, first degree AV block, mild ST depressions. IMPRESSION: 1. Acute coronary syndrome/non-ST elevation myocardial infarction. 2. Congestive heart failure of unknown type. 3. Acute respiratory failure. 4. Chronic obstructive pulmonary disease on home oxygen. 5. Hypertension. 6. Iron deficiency anemia. 7. Depression. RECOMMENDATIONS: 1. Ms. Ornelas presented with chest pain and shortness of breath and required intubation due to lethargy from work of breathing. 2. Vent will be per the critical care team, I discussed with them and we will attempt to try to wean her later today. 3. Her EKG pattern is consistent with subendocardial injury and concern for multivessel disease or left main disease with AVR elevation. The other possibility with this type of EKG is significant aortic stenosis, which is difficult to determine by her murmur whether she has aortic stenosis or mitral regurgitation from ischemia. 4. We will check a 2-D echo to look at her overall left ventricular function, cardiac structure and possible valvulopathies. 5. Once extubated, we will discuss with her how to proceed, but most likely she will need a cardiac catheterization to evaluate her coronary anatomy, depending on the results of her echo. 6. Further recommendations will be made based on the hospital course. Thank you for allowing me to see Tomas Ornelas. If there any questions, please do not hesitate to call. Mason Burgess DO VGP/rw/do , 10:12 PM , 10:28 PM
[2018-02-01] MEDS: Chlorhexidine Gluconate 2% 1 Pack (2 Cloths) TOPICAL SCH (03:29)
[2018-02-01 03:48] LABS: Baso % (Auto) 0.1 % (0.0-2.0); Hematocrit 27.5 % (35.0-46.0); Hemoglobin 9.1 gm/dL (11.6-15.3); Lymph # (Auto) 0.8 th/mm3 (1.0-4.8); Lymph % (Auto) 4.4 % (9.0-44.0); Mean Corpuscular Hemoglobin 30.4 pg (27.0-34.0); Mean Corpuscular Volume 91.9 fL (80.0-100.0); Mean Platelet Volume 8.3 fL (7.0-11.0); Mono # (Auto) 1.1 th/mm3 (0.0-0.9); Mono % (Auto) 5.9 % (0.0-8.0); Neut # (Auto) 16.5 th/mm3 (1.8-7.7); Neut % (Auto) 89.6 % (16.0-70.0); Platelet Count 206 th/mm3 (150-450); White Blood Count 18.4 th/mm3 (4.0-11.0)
[2018-02-01 03:58] LABS: Prothrombin Time 10.5 sec (9.8-11.6)
[2018-02-01 04:06] LABS: Alanine Aminotransferase 26 U/L (10-53); Albumin 3.5 g/dL (3.4-5.0); Anion Gap 9 meq/L (5-15); Aspartate Aminotransferase 16 U/L (15-37); Blood Urea Nitrogen 23 mg/dL (7-18); Calcium 8.1 mg/dL (8.5-10.1); Carbon Dioxide 28.9 meq/L (21.0-32.0); Chloride 101 meq/L (98-107); Glomerular Filtration Rate 65 mL/min (>89); Glucose,Random 113 mg/dL (74-106); Magnesium 2.4 mg/dL (1.5-2.5); Phosphorus 4.5 mg/dL (2.5-4.9); Potassium 4.3 meq/L (3.5-5.1); Sodium 139 meq/L (136-145)
[2018-02-01 04:08] LABS: Alkaline Phosphatase 103 U/L (45-117)
[2018-02-01] MEDS ORDERED: Morphine Inj 4 MG/ML Vial IV.PUSH ONE (04:45)
[2018-02-01] MEDS: Levothyroxine 50 MCG Tablet PO SCH (05:11)
--- NOTE | 2018-02-01 08:35 | P.PNIM ---
Subjective Interval history: EMR Reviewed- Mrs. Ornelas is a 72 yo F with PMH of COPD who was admitted to [place] ED with chest pain and shortness of breath. Patient found to have lethargy and was intubated for airway protection. Patient found to have troponin elevations and EKG on arrival with AVR and V1 ST changes which normalized after intubation. Patient did well and was extubated 01/31. Patient evaluated by Cardiology; concern for multi-vessel disease vs demand ischemia. Patient currently medically managed for possible ACS Mrs. Ornelas was afebrile with stable vital signs overnight. Nursing staff report she had chest pain overnight which improved with morphine. Patient states that she had chest pain which resolved with unknown medication last night. She does not have any chest pain or shortness of breath today. She provides supplemental history that she has had multiple prior UTI's and was taking Azo for lower abdominal pain shortly prior to admission. She reports having former [employer] who retired earlier this year; she denies prior CAD but states she had prior echo which showed hear enlargement around 05/2017. Physical Exam Vital signs: Vital Signs 01/31/18 08:22 01/31/18 09:00 01/31/18 10:00 Temperature Pulse Rate 54 L 53 L Respiratory Rate 16 16 16 Blood Pressure 140/62 136/61 Pulse Oximetry 99 99 98 01/31/18 10:59 01/31/18 11:00 01/31/18 11:38 Temperature Pulse Rate 84 77 Respiratory Rate 17 16 18 Blood Pressure 153/70 H Pulse Oximetry 100 100 100 01/31/18 12:00 01/31/18 13:00 01/31/18 14:00 Temperature Pulse Rate 82 79 76 Respiratory Rate 16 20 20 Blood Pressure 160/73 H 143/65 H 117/57 L Pulse Oximetry 100 01/31/18 15:00 01/31/18 15:05 01/31/18 16:00 Temperature 99.5 F Pulse Rate 76 77 77 Respiratory Rate 20 18 19 Blood Pressure 130/61 153/70 H Pulse Oximetry 100 99 98 01/31/18 16:48 01/31/18 17:00 01/31/18 18:00 Temperature Pulse Rate 70 70 69 Respiratory Rate 18 14 13 Blood Pressure 129/60 133/60 Pulse Oximetry 96 96 01/31/18 19:00 01/31/18 19:52 01/31/18 19:53 Temperature Pulse Rate 76 80 Respiratory Rate 22 20 Blood Pressure 155/70 H Pulse Oximetry 97 100 01/31/18 20:00 01/31/18 21:00 01/31/18 22:00 Temperature 97.8 F Pulse Rate 72 77 71 Respiratory Rate 14 14 13 Blood Pressure 136/61 140/65 129/62 Pulse Oximetry 95 96 97 01/31/18 23:00 01/31/18 23:19 02/01/18 00:00 Temperature 97.9 F Pulse Rate 72 68 Respiratory Rate 12 11 L Blood Pressure 130/63 125/59 L Pulse Oximetry 97 97 98 02/01/18 01:00 02/01/18 02:00 02/01/18 03:00 Temperature Pulse Rate 66 68 71 Respiratory Rate 12 14 16 Blood Pressure 130/60 132/62 132/63 Pulse Oximetry 97 97 97 02/01/18 03:54 02/01/18 04:00 02/01/18 04:30 Temperature 97.8 F Pulse Rate 71 71 Respiratory Rate 14 13 19 Blood Pressure 150/67 H Pulse Oximetry 97 02/01/18 04:31 02/01/18 05:00 02/01/18 05:11 Temperature Pulse Rate 73 Respiratory Rate 16 12 Blood Pressure 139/61 Pulse Oximetry 97 97 02/01/18 06:00 Temperature Pulse Rate 75 Respiratory Rate 13 Blood Pressure 133/61 Pulse Oximetry 96 Intake & Output 01/31/18 02/01/18 02/01/18 18:59 06:59 18:59 Intake Total 3350 / 3350 730 / 730 Output Total 1600 / 1600 400 / 400 Balance 1750 / 1750 330 / 330 Weight 114.1 kg Intake: IV 3350 / 3350 250 / 250 Heparin/D5W 25,000 U/250 mL 25, 250 / 250 000 unit In 250 ml @ Per Protocol IV.CONT TITRATE PRN Rx #:[id number] Diprivan 1000 mg/100 ml Inj 1, 160 / 160 000 mg In 100 ml @ 5 MCG/KG/MIN 3.239 mls/hr IV.CONT TITRATE PRN Rx#:[id number] NS Inj 1,000 ML @ 84 mls/hr IV. 1999 / 1999 CONT .[id number] [facility] Rx#:[id number] NS Inj 1,000 ML @ 30 mls/hr IV. 1000 / 1000 SIG .Q24H [facility] Rx#:[id number] fentaNYL 10 mcg/mL Premix Drip 190 / 190 2,500 mcg In 250 ml @ 50 MCG/HR 5 mls/hr IV.SIG TITRATE PRN Rx #:[id number] Oral 480 / 480 Output: Urine 400 / 400 Urine Amount (Catheter) 1600 / 1600 Indwelling Urethral Catheter 1600 / 1600 Other: # Bowel Movements 0 Narrative: GEN: Awake, alert, no acute distress Skin: No visible lesions HEENT: EOM I. Normal mucus membranes. On O2 via NC CARDIO: Regular rate and rhythm; prominent systolic murmur. trace edema; normal perfusion LUNGS: CTAB; normal rate ABD: Soft, nontender, normal bowel sounds NEURO: Grossly normal CN. Grossly normal peripheral motor/sensory function - Urinary Catheter Management Indwelling Urethral Catheter Cath placed during this visit: yes Reason for continuing: Hourly intake/output Insertion date: 01/30/18 Insertion time: 22:39 Results - Labs CBC & Chem 7: 02/01/18 03:21 02/01/18 03:21 Laboratory Results - last 24 hr 01/31/18 01/31/18 01/31/18 07:56 08:20 15:55 WBC RBC Hgb Hct MCV MCH MCHC RDW Plt Count MPV Neut % (Auto) Lymph % (Auto) Luce % (Auto) Eos % (Auto) Baso % (Auto) Neut # (Auto) Lymph # (Auto) Luce # (Auto) Eos # (Auto) Baso # (Auto) WBC Differential Differential Comment PT INR APTT 37.0 H 37.4 H Sodium Potassium Chloride Carbon Dioxide Anion Gap BUN Creatinine Estimated GFR Random Glucose Calcium Phosphorus Magnesium Total Bilirubin AST ALT Alkaline Phosphatase Troponin I 0.12 H Total Protein Albumin 01/31/18 02/01/18 02/01/18 21:34 03:21 03:21 WBC 18.4 H RBC 3.00 L Hgb 9.1 L Hct 27.5 L MCV 91.9 MCH 30.4 MCHC 33.0 RDW 14.0 Plt Count 206 MPV 8.3 Neut % (Auto) 89.6 H Lymph % (Auto) 4.4 L Luce % (Auto) 5.9 Eos % (Auto) 0.0 Baso % (Auto) 0.1 Neut # (Auto) 16.5 H Lymph # (Auto) 0.8 L Luce # (Auto) 1.1 H Eos # (Auto) 0.0 Baso # (Auto) 0.0 WBC Differential . Differential Comment Auto diff final PT 10.5 INR 1.0 APTT 34.7 H 42.0 H D Sodium Potassium Chloride Carbon Dioxide Anion Gap BUN Creatinine Estimated GFR Random Glucose Calcium Phosphorus Magnesium Total Bilirubin AST ALT Alkaline Phosphatase Troponin I Total Protein Albumin 02/01/18 03:21 WBC RBC Hgb Hct MCV MCH MCHC RDW Plt Count MPV Neut % (Auto) Lymph % (Auto) Luce % (Auto) Eos % (Auto) Baso % (Auto) Neut # (Auto) Lymph # (Auto) Luce # (Auto) Eos # (Auto) Baso # (Auto) WBC Differential Differential Comment PT INR APTT Sodium 139 Potassium 4.3 Chloride 101 Carbon Dioxide 28.9 Anion Gap 9 BUN 23 H Creatinine 0.86 Estimated GFR 65 L Random Glucose 113 H Calcium 8.1 L Phosphorus 4.5 Magnesium 2.4 Total Bilirubin 0.2 AST 16 ALT 26 Alkaline Phosphatase 103 Troponin I Total Protein 7.0 Albumin 3.5 Microbiology 01/30/18 23:00 Clean Catch Urine Urine Culture - Preliminary Immature growth - reincubate Assessment and Plan - Plan Mrs. Ornelas is a 72 yo F with PMH of COPD who was admitted to [place] ED with chest pain and shortness of breath. Patient found to have lethargy and was intubated for airway protection; extubated 01/31. Patient found to have troponin elevations and EKG on arrival with AVR and V1 ST changes which normalized after intubation. Patient evaluated by Cardiology; concern for multi-vessel disease vs demand ischemia. Patient currently medically managed for possible ACS Cardiovascular Impression: Chest pain and shortness of breath on admission; troponin 0.18 and EKG concerning for possible coronary disease Evaluated by Cardiology; concern for subendocardial injury and multivessel disease vs left main disease on EKG. Prominent systolic murmur on exam. Had Fingerprint Expert but no longer does. PMH HTN -Continue medical management for possible coronary ischemia -ASA, heparin drip, BB, statin -Cardiology management -Will check echo for structure/valvular pathology -consider cath vs other management based on echo -Continue Norvasc for BP Respiratory Impression: Underlying COPD; on home O2. Recent need for intubation due to lethargy. Concern for coronary reason for recent pulmonary symptoms 02/01- breathing well; lungs clear -Continue to monitor O2, VS -Continue PRN, schedule Duonebs Impression: UA on admission with nitrates, WBCm many bacteria. Recent suprapubic pain before hospitalization and multiple recent UTI's. Urine culture pending -Monitor culture -Will give empiric Rocephin for UTI Anxiety -Xanax scheduled and as needed Iron deficiency anemia -Ferrous Sulfate Depression -Fluoxetine DVT GI prophylaxis -SCDs -Heparin drip -Pepcid Code Status: Full code
[2018-02-01] MEDS: amLODIPine 10 MG Tablet PO SCH (08:39)
[2018-02-01] MEDS: FLUoxetine 20 MG Capsule PO SCH ×2 (08:39→21:23)
[2018-02-01] MEDS: Senna/Docusate Sodium 8.6/50 MG Tablet PO SCH ×2 (08:40→21:22)
[2018-02-01] MEDS: Ferrous Sulfate 325 MG Tablet PO SCH (08:40)
[2018-02-01] MEDS: Lactobacillus Acidophilus/L. Spores Tablet PO SCH (08:40)
[2018-02-01] MEDS: Famotidine PF Inj 20 MG/2 ML Vial IV.PUSH SCH ×2 (08:41→21:22)
[2018-02-01] MEDS: Gabapentin 300 MG Capsule PO SCH ×3 (08:41→19:27)
[2018-02-01] MEDS: Dorzolamide 2% Opth Drops 10 ML Bottle EACH EYE SCH ×3 (08:42→19:28)
[2018-02-01] MEDS: Mometasone Furoate 50 MCG/ACT 17 GM Nasal Spray Bottle EACH NARE SCH (08:42)
[2018-02-01] MEDS: Carvedilol 6.25 MG Tablet PO SCH ×2 (08:42→21:21)
[2018-02-01] MEDS: Hydrocortisone 2.5% Cream 30 GM Tube TOPICAL SCH ×2 (08:43→21:21)
[2018-02-01] MEDS ORDERED: Amoxicillin/Clavulanate 875/125 MG Tablet PO SCH (09:00)
[2018-02-01] MEDS: Furosemide 40 MG Tablet PO SCH ×2 (09:27→19:27)
--- NOTE | 2018-02-01 12:58 | ECHRPT ---
Indication: HEART FAILURE CONCLUSIONS The left ventricular systolic function is normal with an estimated ejection fraction in the range of 55-60%. Normal left ventricular size. Mild concentric left ventricular hypertrophy. No regional wall motion abnormalities are present. Moderate mitral valve regurgitation. Cannot rule out a bicuspid aortic valve or trileaflet valve with partially fused commissure. Diffuse calcification of the aortic valve. Trace aortic valve regurgitation. Moderate to severe aortic valve stenosis. Aortic valve area is 1.3 cm. Aortic valve mean gradient is 45.3 mmHg. There is trace tricuspid valve regurgitation. The estimated pulmonary arterial pressure is 46 mmHg. BP: / HR: Rhythm: Sinus MEASUREMENTS (Male / Female) Normal Values Technical Quality:Fair 2D ECHO LV Diastolic Diameter PLAX 5.1 cm 4.2 - 5.9 / 3.9 - 5.3 cm LV Systolic Diameter PLAX 3.8 cm IVS Diastolic Thickness 1.2 cm 0.6 - 1.0 / 0.6 - 0.9 cm LVPW Diastolic Thickness 1.2 cm 0.6 - 1.0 / 0.6 - 0.9 cm LV Relative Wall Thickness 0.5 LVOT Diameter 1.9 cm LA Systolic Diameter LX 3.8 cm 3.0 - 4.0 / 2.7 - 3.8 cm DOPPLER AV Peak Velocity 450.3 cm/s AV Peak Gradient 81.1 mmHg AV Mean Gradient 45.3 mmHg AV Velocity Time Integral 109.0 cm AI Peak Velocity 347.5 cm/s AI Peak Gradient 48.3 mmHg AI Pressure Half Time 400.0 ms LVOT Peak Velocity 179.5 cm/s LVOT Peak Gradient 12.9 mmHg AV Area Cont Eq pk 1.1 cm Mitral E Point Velocity 152.0 cm/s Mitral A Point Velocity 88.8 cm/s Mitral E to A Ratio 1.7 LV E' Lateral Velocity 13.8 cm/s Mitral E to LV E' Lateral Ratio 11.0 LV E' Septal Velocity 9.4 cm/s Mitral E to LV E' Septal Ratio 16.2 TR Peak Velocity 300.0 cm/s TR Peak Gradient 36.0 mmHg Right Atrial Pressure 10.0 mmHg Pulmonary Artery Systolic Pressu 46.0 mmHg Right Ventricular Systolic Press 46.0 mmHg PV Peak Velocity 217.0 cm/s PV Peak Gradient 18.8 mmHg FINDINGS LEFT VENTRICLE The left ventricular systolic function is normal with an estimated ejection fraction in the range of 55-60%. Normal left ventricular size. Mild concentric left ventricular hypertrophy. No regional wall motion abnormalities are present. RIGHT VENTRICLE Normal right ventricular size and systolic function. LEFT ATRIUM The left atrial size is normal. RIGHT ATRIUM The right atrial size is normal. ATRIAL SEPTUM Normal atrial septal thickness without atrial level shunting by limited color doppler interrogation. AORTA The aortic root and proximal ascending aorta are normal in size on limited imaging. MITRAL VALVE Structurally normal mitral valve. Moderate mitral valve regurgitation. AORTIC VALVE Cannot rule out a bicuspid aortic valve or trileaflet valve with partially fused commissure. Diffuse calcification of the aortic valve. Trace aortic valve regurgitation. Moderate to severe aortic valve stenosis. Aortic valve area is 1.3 cm. Aortic valve mean gradient is 45.3 mmHg. TRICUSPID VALVE Structurally normal tricuspid valve. There is trace tricuspid valve regurgitation. The estimated pulmonary arterial pressure is 46 mmHg. PULMONARY VALVE No pulmonary valve regurgitation or stenosis. VESSELS The inferior vena cava is normal in size. PERICARDIUM No pericardial effusion. Leonardo Fox MD, FACC (Electronically Signed) Final Date:01 February 2018 12:57
[2018-02-01] MEDS: Tiotropium Bromide 18 MCG/ACT Inhaler INH SCH ×2 (13:14→19:26)
[2018-02-01] MEDS ORDERED: MethylPREDNISolone Sod Succinate Inj 125 MG/2 ML Vial IV.PUSH SCH (14:00)
[2018-02-01] MEDS: Heparin Drip 25,000 UNIT/250 ML BAG IV.CONT PRN (14:33)
--- NOTE | 2018-02-01 18:02 | P.PNCA ---
Subjective Interval history: Extubated yesterday Feeling better today Physical Exam Vital signs: Vital Signs 01/31/18 18:00 01/31/18 19:00 01/31/18 19:52 Temperature Pulse Rate 69 76 80 Respiratory Rate 13 22 20 Blood Pressure 133/60 155/70 H Pulse Oximetry 96 97 01/31/18 19:53 01/31/18 20:00 01/31/18 21:00 Temperature 97.8 F Pulse Rate 71 77 Respiratory Rate 15 13 Blood Pressure 136/61 140/65 Pulse Oximetry 100 98 96 01/31/18 22:00 01/31/18 23:00 01/31/18 23:19 Temperature Pulse Rate 71 69 Respiratory Rate 11 L 13 Blood Pressure 129/62 130/63 Pulse Oximetry 97 97 97 02/01/18 00:00 02/01/18 01:00 02/01/18 02:00 Temperature 97.9 F Pulse Rate 68 66 65 Respiratory Rate 11 L 12 11 L Blood Pressure 125/59 L 130/60 132/62 Pulse Oximetry 98 97 97 02/01/18 03:00 02/01/18 03:54 02/01/18 04:00 Temperature 97.8 F Pulse Rate 68 71 Respiratory Rate 13 14 13 Blood Pressure 132/63 150/67 H Pulse Oximetry 98 97 02/01/18 04:30 02/01/18 04:31 02/01/18 05:00 Temperature Pulse Rate 71 69 Respiratory Rate 19 14 Blood Pressure 139/61 Pulse Oximetry 97 97 02/01/18 05:11 02/01/18 06:00 02/01/18 07:00 Temperature Pulse Rate 75 74 Respiratory Rate 12 13 10 L Blood Pressure 133/61 134/71 Pulse Oximetry 96 97 02/01/18 08:00 02/01/18 08:14 02/01/18 09:00 Temperature Pulse Rate 65 67 62 Respiratory Rate 17 15 15 Blood Pressure 142/66 H 132/60 Pulse Oximetry 97 97 97 02/01/18 10:00 02/01/18 10:53 02/01/18 11:00 Temperature Pulse Rate 80 96 H 90 Respiratory Rate 18 15 26 H Blood Pressure 145/77 H 209/109 H Pulse Oximetry 96 94 L 02/01/18 12:00 02/01/18 13:00 02/01/18 14:00 Temperature Pulse Rate 83 90 90 Respiratory Rate 36 H 22 30 H Blood Pressure 156/70 H 160/78 H 169/76 H Pulse Oximetry 92 L 91 L 90 L 02/01/18 15:00 02/01/18 15:43 02/01/18 16:00 Temperature Pulse Rate 75 81 79 Respiratory Rate 18 15 27 H Blood Pressure 148/66 H 146/68 H Pulse Oximetry 95 96 02/01/18 17:00 02/01/18 17:22 Temperature Pulse Rate 96 H 112 H Respiratory Rate 31 H 21 Blood Pressure 178/84 H Pulse Oximetry 87 L Intake & Output 01/31/18 02/01/18 02/01/18 18:59 06:59 18:59 Intake Total 3350 / 3350 730 / 730 250 / 250 Output Total 1600 / 1600 400 / 400 Balance 1750 / 1750 330 / 330 250 / 250 Weight 114.1 kg Intake: IV 3350 / 3350 250 / 250 250 / 250 Heparin/D5W 25,000 U/250 mL 25, 250 / 250 250 / 250 000 unit In 250 ml @ Per Protocol IV.CONT TITRATE PRN Rx #:[id number] Diprivan 1000 mg/100 ml Inj 1, 160 / 160 000 mg In 100 ml @ 5 MCG/KG/MIN 3.239 mls/hr IV.CONT TITRATE PRN Rx#:[id number] NS Inj 1,000 ML @ 84 mls/hr IV. 1999 / 1999 CONT .[id number] [facility] Rx#:[id number] NS Inj 1,000 ML @ 30 mls/hr IV. 1000 / 1000 SIG .Q24H [facility] Rx#:[id number] fentaNYL 10 mcg/mL Premix Drip 190 / 190 2,500 mcg In 250 ml @ 50 MCG/HR 5 mls/hr IV.SIG TITRATE PRN Rx #:[id number] Oral 480 / 480 Output: Urine 400 / 400 Urine Amount (Catheter) 1600 / 1600 Indwelling Urethral Catheter 1600 / 1600 Other: # Bowel Movements 0 Narrative: GENERAL: NAD, AAOx3 SKIN: Warm and dry. HEAD: Atraumatic. Normocephalic. EYES: Pupils equal and round. No scleral icterus. No injection or drainage. ENT: No nasal bleeding or discharge. Mucous membranes pink and moist. NECK: Trachea midline. No JVD. CARDIOVASCULAR: Regular rate and rhythm. 2/6 crescendo-decrescendo to the RSB RESPIRATORY: No accessory muscle use. Decreased breath sounds, GASTROINTESTINAL: Abdomen soft, non-tender, nondistended. Hepatic and splenic margins not palpable. MUSCULOSKELETAL: Extremities without clubbing, cyanosis, or edema. No obvious deformities. NEUROLOGICAL: Awake and alert. No obvious cranial nerve deficits. Motor grossly within normal limits. Five out of 5 muscle strength in the arms and legs. Normal speech. PSYCHIATRIC: Appropriate mood and affect; insight and judgment normal. - Urinary Catheter Management Indwelling Urethral Catheter Cath placed during this visit: yes, but has since been removed by the nurse Reason for continuing: Decision to DC catheter Insertion date: 01/30/18 Insertion time: 22:39 Removal date: 01/31/18 Removal time: 12:30 Assessment and Plan - Assessment (1) Abnormal EKG Code(s): R94.31 - Abnormal electrocardiogram [ECG] [EKG] Status: Acute (2) NSTEMI (non-ST elevated myocardial infarction) Code(s): I21.4 - Non-ST elevation (NSTEMI) myocardial infarction Status: Acute (3) Respiratory failure Code(s): J96.90 - Respiratory failure, unspecified, unspecified whether with hypoxia or hypercapnia Status: Acute (4) Chest pain Code(s): R07.9 - Chest pain, unspecified Status: Acute - Plan 1) CP/SOB Most likely anginal equivalent Possible ACS vs secondary to severe 2) Acute respiratory failure Extubated per pulmonary 3) Abnormal EKG Her EKG pattern is consistent with subendocardial injury and concern for multivessel disease or left main disease with AVR elevation. The other possibility with this type of EKG is significant aortic stenosis, which is moderate to severe by echo 4) Will plan LHC/RHC in the morning to evaluate coronaries and aortic valve disease Risks, benefits and alternatives discussed with her (3) Respiratory failure Qualifiers: Chronicity: acute Respiratory failure complication: hypoxia Qualified Code(s ): J96.01 - Acute respiratory failure with hypoxia (4) Chest pain Qualifiers: Chest pain type: unspecified Qualified Code(s): R07.9 - Chest pain, unspecified
--- NOTE | 2018-02-01 18:15 | XR ---
EXAM DATE: 02/01/2018 6:07 PM EDT AGE/SEX: 72 years / Female INDICATIONS: Short of breath. Decreasing o2 sats. CLINICAL DATA: This is the patient's subsequent encounter. Patient reports that signs and symptoms h ave been present for 2 days and indicates a pain score of Nonresponsive. MEDICAL/SURGICAL HISTORY: None. None. COMPARISON: . FINDINGS: Diffuse infiltrates are noted consistent with moderate pulmonary edema versus pneumonia. The heart is enlarged. CONCLUSION: 1. Diffuse bilateral pulmonary infiltrates consistent with moderate pulmonary edema versus pneumonia . Clinical correlation is recommended. 2. Cardiomegaly. Electronically signed by: Ariel Frederick MD 02/01/2018 6:14 PM EDT
[2018-02-01] MEDS: Montelukast 10 MG Tablet PO SCH (19:28)
[2018-02-01 20:04] LABS: ABG Base Excess 4.3 mmol/L (-2-2); ABG PCO2 51 mmHg (38-42); ABG PO2 148 mmHG (61-120)
--- NOTE | 2018-02-01 20:05 | MB ---
cc: Elvia Davies MD DATE: 02/01/2018 REASON FOR CONSULTATION: Respiratory failure and COPD. HISTORY OF PRESENT ILLNESS: This is a 72-year-old female with a past history of chronic asthma, COPD who was initially admitted through the [facility] with chest pain and dyspnea. The patient apparently was lethargic and had an abnormal EKG as well as elevated troponin and had to be intubated for airway management. Following successful weaning off the ventilator, the patient was extubated on 01/31/2018 and since then has been on nasal cannula oxygen. Today, however, the patient became more short of breath. Her oxygen requirements had increased greatly and she was then placed on the BiPAP setup with FiO2 of 60%, but denied any chest pains. O2 saturations now in the low 90s. The patient has some cough and wheezing. Denies any fevers or chills. She has had some abdominal discomfort, but no vomiting. She does have some reflux. She also had some leg swelling and was given diuretics earlier today with good diuresis up to 4 liters. PAST MEDICAL HISTORY: The patient's past history has included a history of asthma and chronic bronchitis. The patient also has had a history of depression and anxiety. She was diagnosed with COPD more than 20 years ago, and she was told that she has pulmonary hypertension, but she is not on any specific medications for it. HABITS: The patient is a nonsmoker; however, was exposed to secondhand smoke for more than 15 years and has had recurrent bronchitis. No significant alcohol intake. ALLERGIES: EARL INHIBITORS, ARB ANGIOTENSIN RECEPTOR BLOCKERS, CEFACLOR, CODEINE, HYDROCODONE, LEVAQUIN, MEPERIDINE, NIFEDIPINE, SULFA, TOPIRAMATE, TERCONAZOLE. HOME MEDICATIONS: List included: 1. Carvedilol 6.25 mg b.i.d. 2. Cetirizine 10 mg a day. 3. Xanax 1 mg daily. 4. Flovent HFA 110 mcg 2 puffs b.i.d. 5. Lasix 40 mg b.i.d. 6. Fluoxetine 40 mg b.i.d. 7. Gabapentin 600 mg t.i.d. 8. Hydrocortisone cream hours p.r.n. 9. Atrovent HFA inhaler 2 puffs every 6 hours. 10. Levsin 0.125 mg q.i.d. 11. Prevacid 30 mg a day. 12. Xopenex inhaler 2 puffs every 6 hours p.r.n. 13. Levothyroxine 50 mcg daily. 14. Nasonex nasal spray 2 sprays in each nostril daily. 15. Singulair 10 mg a day. 16. Pravastatin 40 mg a day. 17. Potassium 20 mEq b.i.d. 18. Requip 0.25 mg t.i.d. 19. at bedtime, 4 mg. 20. Aldactone 25 mg daily. 21. Geodon 40 mg p.o. b.i.d. FAMILY HISTORY: Essentially noncontributory. There is a history of heart disease in the family. SYSTEM REVIEW: The patient is now on a BiPAP mask in some respiratory distress. She is not able to give any details of her complaints or history. PHYSICAL EXAMINATION: GENERAL: This is an obese, elderly lady who was flushed. She is on a BiPAP mask. She has mild peripheral edema. No lymphadenopathy. She is tachypneic. VITAL SIGNS: Blood pressure 140/70, pulse 85, respirations 22, temperature 98.2. HEENT: Head is normocephalic. Pupils are reactive and equal. The throat was injected and dry. Nasal mucosa is edematous. NECK: Supple. No lymphadenopathy. No bruits or thyroid enlargement. CHEST: Distant breath sounds with expiratory wheezes throughout both lung tang with occasional bibasilar crackles. HEART: Heart sounds are irregular S1 and S2 with no murmur, no S3 gallop. ABDOMEN: Soft, protuberant without mass or organomegaly or tenderness. EXTREMITIES: Decreased pulses minimal edema. No calf tenderness. Reflexes are 1+. NEUROLOGIC: The patient is responsive and moves all extremities well, 1+ reflexes. Negative Babinski. SKIN: Dry and warm. ASSESSMENT AND PLAN: 1. Acute respiratory failure. 2. Probable aspiration pneumonia. 3. Asthma with chronic bronchitis. 4. Pulmonary hypertension. 5. Depression and anxiety. 6. Hypertension. 7. Congestive heart failure. 8. Chest pain. PLAN: The patient has been started on BiPAP 12/5 and 50% FiO2. A blood gas study will be repeated. A CT scan of the chest to evaluate the lung infiltrates. Continue with diuretic therapy including 40 mg of Lasix b.i.d., nebulized DuoNeb solution added every 6 hours and Solu-Medrol 40 mg IV every 6 hours. We will get a followup chest x-ray and also start Symbicort 160/4.5 mcg 2 puffs twice a day. The patient will have a pulmonary function study when she is clinically stable. A report of her echocardiogram is pending and further evaluation of the pulmonary hypertension to be done when these reports are back. Would keep a close eye on her to see if she will need intubation. Thank you, Dr. Villanueva, for this consultation. V. Froylan Davies MD VJD/moiz/radha , 06:35 PM , 06:53 PM
[2018-02-01] MEDS: MethylPREDNISolone Sod Succinate Inj 40 MG/ML Vial IV.PUSH SCH (20:14)
[2018-02-01] MEDS: Ampicillin/Sulbactam Inj 1,500 MG in Sodium Chloride 0.9% Inj 100 ML IV.SIG SCH (20:44)
[2018-02-01] MEDS: Budesonide-Formoterol 160/4.5 MCG 6 GM Inhaler INH SCH (21:23)
[2018-02-02] MEDS: MethylPREDNISolone Sod Succinate Inj 40 MG/ML Vial IV.PUSH SCH ×3 (00:54→22:53)
[2018-02-02] MEDS: Ampicillin/Sulbactam Inj 1,500 MG in Sodium Chloride 0.9% Inj 100 ML IV.SIG SCH ×4 (00:55→18:24)
[2018-02-02] MEDS: Chlorhexidine Gluconate 2% 1 Pack (2 Cloths) TOPICAL SCH (04:21)
[2018-02-02 04:23] LABS: Baso % (Auto) 0.1 % (0.0-2.0); Hematocrit 29.2 % (35.0-46.0); Hemoglobin 9.8 gm/dL (11.6-15.3); Lymph # (Auto) 0.3 th/mm3 (1.0-4.8); Lymph % (Auto) 2.1 % (9.0-44.0); Mean Corpuscular HGB Conc 33.4 % (32.0-36.0); Mean Corpuscular Volume 89.7 fL (80.0-100.0); Mean Platelet Volume 8.1 fL (7.0-11.0); Mono # (Auto) 0.2 th/mm3 (0.0-0.9); Mono % (Auto) 1.6 % (0.0-8.0); Neut # (Auto) 14.9 th/mm3 (1.8-7.7); Neut % (Auto) 96.2 % (16.0-70.0); Platelet Count 222 th/mm3 (150-450); Red Blood Count 3.26 mil/mm3 (4.00-5.30); Red Cell Distribution Width 13.8 % (11.6-17.2); White Blood Count 15.5 th/mm3 (4.0-11.0)
[2018-02-02 04:50] LABS: Calcium 8.8 mg/dL (8.5-10.1); Carbon Dioxide 31.7 meq/L (21.0-32.0)
[2018-02-02] MEDS: Levothyroxine 50 MCG Tablet PO SCH (05:48)
[2018-02-02] MEDS ORDERED: Iohexol 350 MG/ML 50 ML Vial (for Cath Lab) IVCONTRAST ONE (06:55)
--- NOTE | 2018-02-02 08:06 | XR ---
EXAM DATE: 02/02/2018 7:50 AM EDT AGE/SEX: 72 years / Female INDICATIONS: Shortness of breath. CLINICAL DATA: This is the patient's subsequent encounter. Patient reports that signs and symptoms h ave been present for 3 days and indicates a pain score of 0/10. MEDICAL/SURGICAL HISTORY: Asthma. Chronic obstructive pulmonary disease. Emphysema. Hyperten peter. None. COMPARISON: . FINDINGS: A single AP view of the chest demonstrates the lungs to be symmetrically aerated without evidence of mass, infiltrate or effusion. Mild cardiomegaly with pulmonary vascular engorgement. Osseous structu res are intact. CONCLUSION: Improvement in the appearance of the chest. There is persistent cardiomegaly with pulmonary vascular engorgement but resolution of the previously seen infiltrates. Electronically signed by: Kiko Castrejon MD 02/02/2018 8:05 AM EDT
--- NOTE | 2018-02-02 08:08 | P.PNIM ---
Subjective Interval history: Mrs. Ornelas was afebrile with mild HTN overnight on BIPAP (progressive respiratory status yesterday; placed on BIPAP ~1800). Per I/O review, net output 5600ml in the past 24hrs. Patient does not report new complaints today. Discussed with nursing staff. Physical Exam Vital signs: Vital Signs 02/01/18 08:00 02/01/18 08:14 02/01/18 09:00 Pulse Rate 65 67 62 Respiratory Rate 17 15 15 Blood Pressure 142/66 H 132/60 Pulse Oximetry 97 97 97 02/01/18 10:00 02/01/18 10:53 02/01/18 11:00 Pulse Rate 80 96 H 90 Respiratory Rate 18 15 26 H Blood Pressure 145/77 H 209/109 H Pulse Oximetry 96 94 L 02/01/18 12:00 02/01/18 13:00 02/01/18 14:00 Pulse Rate 83 90 90 Respiratory Rate 36 H 22 30 H Blood Pressure 156/70 H 160/78 H 169/76 H Pulse Oximetry 92 L 91 L 90 L 02/01/18 15:00 02/01/18 15:43 02/01/18 16:00 Pulse Rate 75 81 79 Respiratory Rate 18 15 27 H Blood Pressure 148/66 H 146/68 H Pulse Oximetry 95 96 02/01/18 17:00 02/01/18 17:22 02/01/18 18:00 Pulse Rate 96 H 112 H 120 H Respiratory Rate 31 H 21 24 Blood Pressure 178/84 H 193/108 H Pulse Oximetry 87 L 94 L 02/01/18 18:06 02/01/18 19:00 02/01/18 20:00 Pulse Rate 97 H 95 H Respiratory Rate 20 18 Blood Pressure 172/83 H 167/76 H Pulse Oximetry 96 97 98 02/01/18 20:52 02/01/18 21:00 02/01/18 22:00 Pulse Rate 89 89 85 Respiratory Rate 16 15 17 Blood Pressure 167/77 H 160/75 H Pulse Oximetry 99 99 02/01/18 23:00 02/01/18 23:27 02/01/18 23:36 Pulse Rate 74 72 Respiratory Rate 25 H 17 Blood Pressure 155/70 H Pulse Oximetry 99 99 100 02/02/18 00:00 02/02/18 01:00 02/02/18 02:00 Pulse Rate 69 67 68 Respiratory Rate 32 H 23 22 Blood Pressure 153/68 H 142/65 H 158/67 H Pulse Oximetry 99 98 98 02/02/18 03:00 02/02/18 03:13 02/02/18 04:00 Pulse Rate 71 67 81 Respiratory Rate 18 16 23 Blood Pressure 164/71 H 167/75 H Pulse Oximetry 98 100 100 02/02/18 05:00 02/02/18 06:00 02/02/18 07:44 Pulse Rate 69 67 Respiratory Rate 14 14 Blood Pressure 150/65 H 160/72 H Pulse Oximetry 98 98 99 02/02/18 07:46 Pulse Rate 80 Respiratory Rate 14 Blood Pressure Pulse Oximetry Intake & Output 02/01/18 02/02/18 02/02/18 18:59 06:59 18:59 Intake Total 2750 / 2750 200 / 200 Output Total 5500 / 5500 3050 / 3050 Balance -2750 / -2750 -2850 / -2850 Weight 109.6 kg Intake: IV 250 / 250 200 / 200 Heparin/D5W 25,000 U/250 mL 25, 250 / 250 000 unit In 250 ml @ Per Protocol IV.CONT TITRATE PRN Rx #:[id number] Unasyn Inj 1,500 MG In NS Inj 200 / 200 100 ML @ 200 mls/hr IV.SIG Q6H SLOANE Rx#:[id number] Oral 2500 / 2500 Output: Urine 5500 / 5500 Urine Amount (Catheter) 3050 / 3050 Female External 3050 / 3050 Narrative: GEN: Awake, alert, no acute distress Skin: No visible lesions HEENT: EOM I. Normal mucus membranes. On O2 via NC CARDIO: Regular rate and rhythm; prominent systolic murmur. No appreciated edema ; normal perfusion LUNGS: On BIPAP. Expiratory wheezes and decreased breath sounds; symmetrical ABD: Soft, nontender, normal bowel sounds NEURO: Grossly normal CN. Grossly normal peripheral motor/sensory function - Urinary Catheter Management Indwelling Urethral Catheter Cath placed during this visit: yes, but has since been removed by the nurse Reason for continuing: Decision to DC catheter Insertion date: 01/30/18 Insertion time: 22:39 Removal date: 01/31/18 Removal time: 12:30 Female External Cath placed during this visit: no Results - Labs CBC & Chem 7: 02/02/18 03:42 02/02/18 03:42 Laboratory Results - last 24 hr 01/30/18 02/01/18 02/01/18 23:00 10:24 19:45 WBC RBC Hgb Hct MCV MCH MCHC RDW Plt Count MPV Neut % (Auto) Lymph % (Auto) [place] % (Auto) Eos % (Auto) Baso % (Auto) Neut # (Auto) Lymph # (Auto) [place] # (Auto) Eos # (Auto) Baso # (Auto) WBC Differential Differential Comment APTT 41.5 H Puncture Site Right radial Patient Temperature 98.6 O2 Saturation 97 ABG pH 7.38 ABG pCO2 51 H* ABG pO2 148 H ABG HCO3 29 H ABG O2 Content 14.0 ABG Base Excess 4.3 H ABG Methemoglobin 1.6 Matteo Test Present Hemoglobin 10.1 L Carboxyhemoglobin 0.8 O2 Delivery Device Bipap Vent Setting 12ipap/6 epap Inspired O2 50 Critical Value Yes Sodium Potassium Chloride Carbon Dioxide Anion Gap BUN Creatinine Estimated GFR Random Glucose Calcium Urine Color Yellow Urine Clarity Slightly cloudy Urine pH 6.0 Ur Specific [place] 1.020 Urine Protein 100 H Urine Glucose (UA) Negative Urine Ketones Trace H Urine Occult Blood Negative Urine Nitrate Positive H Urine Bilirubin Negative Urine Urobilinogen 0.2 Ur Leukocyte Esterase Negative Urine RBC 0-3 Urine WBC 9-20 H Ur Squamous Epith Cells 0-5 Urine Bacteria Many H Hyaline Casts 0-3 WBC Casts 1-3 H Micro UA Comment Culture indicated Ur Microscopic Review Microscopic reviewed Urine Culture Comments Culture indicated 02/02/18 02/02/18 02/02/18 03:42 03:42 05:16 WBC 15.5 H RBC 3.26 L Hgb 9.8 L Hct 29.2 L MCV 89.7 MCH 30.0 MCHC 33.4 RDW 13.8 Plt Count 222 MPV 8.1 Neut % (Auto) 96.2 H Lymph % (Auto) 2.1 L [place] % (Auto) 1.6 Eos % (Auto) 0.0 Baso % (Auto) 0.1 Neut # (Auto) 14.9 H Lymph # (Auto) 0.3 L [place] # (Auto) 0.2 Eos # (Auto) 0.0 Baso # (Auto) 0.0 WBC Differential . Differential Comment Auto diff final APTT 37.9 H Puncture Site Patient Temperature O2 Saturation ABG pH ABG pCO2 ABG pO2 ABG HCO3 ABG O2 Content ABG Base Excess ABG Methemoglobin Matteo Test Hemoglobin Carboxyhemoglobin O2 Delivery Device Vent Setting Inspired O2 Critical Value Sodium 140 Potassium 4.0 Chloride 97 L Carbon Dioxide 31.7 Anion Gap 11 BUN 25 H Creatinine 0.78 Estimated GFR 73 L Random Glucose 159 H Calcium 8.8 Urine Color Urine Clarity Urine pH Ur Specific [place] Urine Protein Urine Glucose (UA) Urine Ketones Urine Occult Blood Urine Nitrate Urine Bilirubin Urine Urobilinogen Ur Leukocyte Esterase Urine RBC Urine WBC Ur Squamous Epith Cells Urine Bacteria Hyaline Casts WBC Casts Micro UA Comment Ur Microscopic Review Urine Culture Comments Microbiology 01/30/18 23:00 Clean Catch Urine Urine Culture - Preliminary gram negative rods - Imaging Impressions Chest X-Ray 02/01/18 00:00 CONCLUSION: 1. Diffuse bilateral pulmonary infiltrates consistent with moderate pulmonary edema versus pneumonia. Clinical correlation is recommended. 2. Cardiomegaly. Assessment and Plan - Plan Mrs. Ornelas is a 72 yo F with PMH of COPD who was admitted to [facility] ED with chest pain and shortness of breath. Patient found to have lethargy and was intubated for airway protection; extubated 01/31. Patient found to have troponin elevations and EKG on arrival with AVR and V1 ST changes which normalized after intubation. Patient evaluated by Cardiology; concern for multi-vessel disease vs demand ischemia. Patient currently medically managed for possible ACS. Patient underwent worsening of respiratory status so was placed on BIPAP, steroids, and given additional diuresis. Patient has plans for heart catheterization Cardiovascular Impression: Chest pain and shortness of breath on admission; troponin 0.18 and EKG concerning for possible coronary disease Evaluated by Cardiology; concern for subendocardial injury and multivessel disease vs left main disease on EKG. Prominent systolic murmur on exam. Had [employer] but no longer does. PMH HTN Echocardiogram- normal EF; no wall motion abnormalities. mod/severe aortic stenosis. Pulmonary pressure 46mmHg -Cardiology management -Concern for ischemia vs significant aortic stenosis causing symptoms -Plan for LHC/RHC -Continue medical management for possible coronary ischemia -ASA, heparin drip, BB, statin -Continue Norvasc for BP Respiratory Impression:Underlying COPD; on home O2. Recent need for intubation due to lethargy. Concern for coronary reason for recent pulmonary symptoms Increased cough/wheezing 02/01; given steroids and placed on BIPAP. Pulmonology consulted. Blood gas 02/01 on BIPAP- pH 7.38, CO2 51, bicarb 29 Repeat CXR 02/01 with diffuse infiltrates suggestive of pulmonary edema vs pneumonia 02/01- increased shortness of breath/wheezing; placed on BIPAP, IV steroids, and given diuresis. Pulmonology consulted 02/02- on BIPAP; much improved breathing per patient -Appreciate Pulmonology assistance -Continue BIPAP -Continue Diuretic therapy -Continue Solumedrol; make 40mg IV q6hrs -Continue Duonebs -Start Symbicort -Monitor echo; assess pulmonary HTN -Watch for potential need for intubation -Chest CT; f/u CXR Impression: UA on admission with nitrates, WBCm many bacteria. Recent suprapubic pain before hospitalization and multiple recent UTI's. Urine culture pending -Monitor culture -Augmentin changed to Unasyn so that PO med not needed for respiratory status Anxiety -Xanax scheduled and as needed Iron deficiency anemia -Ferrous Sulfate Depression -Fluoxetine DVT GI prophylaxis -SCDs -Heparin drip -Pepcid Code Status: Full code
[2018-02-02] MEDS: Budesonide-Formoterol 160/4.5 MCG 6 GM Inhaler INH SCH ×2 (08:51→22:52)
[2018-02-02] MEDS: Lactobacillus Acidophilus/L. Spores Tablet PO SCH (08:52)
[2018-02-02] MEDS: FLUoxetine 20 MG Capsule PO SCH ×2 (08:54→22:50)
[2018-02-02] MEDS: amLODIPine 10 MG Tablet PO SCH (08:54)
[2018-02-02] MEDS: Senna/Docusate Sodium 8.6/50 MG Tablet PO SCH (08:55)
[2018-02-02] MEDS: Carvedilol 6.25 MG Tablet PO SCH ×2 (08:55→22:52)
[2018-02-02] MEDS: Gabapentin 300 MG Capsule PO SCH ×3 (08:55→17:42)
[2018-02-02] MEDS: Dorzolamide 2% Opth Drops 10 ML Bottle EACH EYE SCH ×3 (08:56→17:43)
[2018-02-02] MEDS: Famotidine PF Inj 20 MG/2 ML Vial IV.PUSH SCH ×2 (08:56→22:53)
[2018-02-02] MEDS: Furosemide 40 MG Tablet PO SCH (09:27)
[2018-02-02] MEDS: Mometasone Furoate 50 MCG/ACT 17 GM Nasal Spray Bottle EACH NARE SCH (09:28)
[2018-02-02] MEDS: Tiotropium Bromide 18 MCG/ACT Inhaler INH SCH (09:28)
[2018-02-02] MEDS: Hydrocortisone 2.5% Cream 30 GM Tube TOPICAL SCH ×2 (09:28→22:52)
[2018-02-02] MEDS: Heparin Drip 25,000 UNIT/250 ML BAG IV.CONT PRN (11:33)
--- NOTE | 2018-02-02 12:03 | P.PN ---
Subjective Interval history: She is better. On O2 2 L. Used BIPAP last PM. Physical Exam Vital signs: Vital Signs 02/01/18 12:00 02/01/18 13:00 02/01/18 14:00 Temperature Pulse Rate 83 90 90 Respiratory Rate 36 H 22 30 H Blood Pressure 156/70 H 160/78 H 169/76 H Pulse Oximetry 92 L 91 L 90 L 02/01/18 15:00 02/01/18 15:43 02/01/18 16:00 Temperature Pulse Rate 75 81 79 Respiratory Rate 18 15 27 H Blood Pressure 148/66 H 146/68 H Pulse Oximetry 95 96 02/01/18 17:00 02/01/18 17:22 02/01/18 18:00 Temperature Pulse Rate 96 H 112 H 120 H Respiratory Rate 31 H 21 24 Blood Pressure 178/84 H 193/108 H Pulse Oximetry 87 L 94 L 02/01/18 18:06 02/01/18 19:00 02/01/18 20:00 Temperature Pulse Rate 97 H 95 H Respiratory Rate 20 18 Blood Pressure 172/83 H 167/76 H Pulse Oximetry 96 97 98 02/01/18 20:52 02/01/18 21:00 02/01/18 22:00 Temperature Pulse Rate 89 89 85 Respiratory Rate 16 15 17 Blood Pressure 167/77 H 160/75 H Pulse Oximetry 99 99 02/01/18 23:00 02/01/18 23:27 02/01/18 23:36 Temperature Pulse Rate 74 72 Respiratory Rate 25 H 17 Blood Pressure 155/70 H Pulse Oximetry 99 99 100 02/02/18 00:00 02/02/18 01:00 02/02/18 02:00 Temperature Pulse Rate 69 67 68 Respiratory Rate 32 H 23 22 Blood Pressure 153/68 H 142/65 H 158/67 H Pulse Oximetry 99 98 98 02/02/18 03:00 02/02/18 03:13 02/02/18 04:00 Temperature Pulse Rate 71 67 81 Respiratory Rate 18 16 23 Blood Pressure 164/71 H 167/75 H Pulse Oximetry 99 100 100 02/02/18 04:04 02/02/18 05:00 02/02/18 06:00 Temperature Pulse Rate 77 69 73 Respiratory Rate 18 14 17 Blood Pressure 167/75 H 150/65 H 160/72 H Pulse Oximetry 99 98 100 02/02/18 07:00 02/02/18 07:44 02/02/18 07:46 Temperature Pulse Rate 70 80 Respiratory Rate 18 14 Blood Pressure 161/75 H Pulse Oximetry 99 99 02/02/18 08:00 02/02/18 09:00 02/02/18 10:00 Temperature 98.1 F Pulse Rate 76 73 73 Respiratory Rate 21 22 22 Blood Pressure 163/77 H 166/74 H 153/67 H Pulse Oximetry 96 97 98 Intake & Output 02/01/18 02/02/18 02/02/18 18:59 06:59 18:59 Intake Total 2750 / 2750 200 / 200 100 / 100 Output Total 5500 / 5500 3050 / 3050 Balance -2750 / -2750 -2850 / -2850 100 / 100 Weight 109.6 kg Intake: IV 250 / 250 200 / 200 100 / 100 Heparin/D5W 25,000 U/250 mL 25, 250 / 250 0 / 0 000 unit In 250 ml @ Per Protocol IV.CONT TITRATE PRN Rx #:[id number] Unasyn Inj 1,500 MG In NS Inj 200 / 200 100 / 100 100 ML @ 200 mls/hr IV.SIG Q6H SLOANE Rx#:[id number] Oral 2500 / 2500 Output: Urine 5500 / 5500 Urine Amount (Catheter) 3050 / 3050 Female External 3050 / 3050 Narrative: GEN: Obese elderly W/F Awake, alert, no acute distress SKIN: Warm and dry. No visible lesions HEAD: Atraumatic. Normocephalic. EYES: Pupils equal and round. No scleral icterus. No injection or drainage. ENT: No nasal bleeding or discharge. Mucous membranes pink and moist. NECK: Trachea midline. No JVD. CARDIOVASCULAR: Regular rate and rhythm. RESPIRATORY: No accessory muscle use. Few basal crackles. Breath sounds equal bilaterally. GASTROINTESTINAL: Abdomen soft, non-tender, nondistended. Hepatic and splenic margins not palpable. MUSCULOSKELETAL: Extremities without clubbing, cyanosis, but has edema. No obvious deformities. NEUROLOGICAL: Awake and alert. No obvious cranial nerve deficits. Motor grossly within normal limits. Normal speech. PSYCHIATRIC: Appropriate mood and affect. - Urinary Catheter Management Indwelling Urethral Catheter Cath placed during this visit: yes, but has since been removed by the nurse Reason for continuing: Decision to DC catheter Insertion date: 01/30/18 Insertion time: 22:39 Removal date: 01/31/18 Removal time: 12:30 Female External Cath placed during this visit: no Results - Labs CBC & Chem 7: 02/02/18 03:42 02/02/18 03:42 Laboratory Results - last 24 hr 01/30/18 02/01/18 02/02/18 23:00 19:45 03:42 WBC 15.5 H RBC 3.26 L Hgb 9.8 L Hct 29.2 L MCV 89.7 MCH 30.0 MCHC 33.4 RDW 13.8 Plt Count 222 MPV 8.1 Neut % (Auto) 96.2 H Lymph % (Auto) 2.1 L [place] % (Auto) 1.6 Eos % (Auto) 0.0 Baso % (Auto) 0.1 Neut # (Auto) 14.9 H Lymph # (Auto) 0.3 L [place] # (Auto) 0.2 Eos # (Auto) 0.0 Baso # (Auto) 0.0 WBC Differential . Differential Comment Auto diff final APTT Puncture Site Right radial Patient Temperature 98.6 O2 Saturation 97 ABG pH 7.38 ABG pCO2 51 H* ABG pO2 148 H ABG HCO3 29 H ABG O2 Content 14.0 ABG Base Excess 4.3 H ABG Methemoglobin 1.6 Matteo Test Present Hemoglobin 10.1 L Carboxyhemoglobin 0.8 O2 Delivery Device Bipap Vent Setting 12ipap/6 epap Inspired O2 50 Critical Value Yes Sodium Potassium Chloride Carbon Dioxide Anion Gap BUN Creatinine Estimated GFR Random Glucose Calcium Urine Color Yellow Urine Clarity Slightly cloudy Urine pH 6.0 Ur Specific [place] 1.020 Urine Protein 100 H Urine Glucose (UA) Negative Urine Ketones Trace H Urine Occult Blood Negative Urine Nitrate Positive H Urine Bilirubin Negative Urine Urobilinogen 0.2 Ur Leukocyte Esterase Negative Urine RBC 0-3 Urine WBC 9-20 H Ur Squamous Epith Cells 0-5 Urine Bacteria Many H Hyaline Casts 0-3 WBC Casts 1-3 H Micro UA Comment Culture indicated Ur Microscopic Review Microscopic reviewed Urine Culture Comments Culture indicated 02/02/18 02/02/18 03:42 05:16 WBC RBC Hgb Hct MCV MCH MCHC RDW Plt Count MPV Neut % (Auto) Lymph % (Auto) [place] % (Auto) Eos % (Auto) Baso % (Auto) Neut # (Auto) Lymph # (Auto) [place] # (Auto) Eos # (Auto) Baso # (Auto) WBC Differential Differential Comment APTT 37.9 H Puncture Site Patient Temperature O2 Saturation ABG pH ABG pCO2 ABG pO2 ABG HCO3 ABG O2 Content ABG Base Excess ABG Methemoglobin Matteo Test Hemoglobin Carboxyhemoglobin O2 Delivery Device Vent Setting Inspired O2 Critical Value Sodium 140 Potassium 4.0 Chloride 97 L Carbon Dioxide 31.7 Anion Gap 11 BUN 25 H Creatinine 0.78 Estimated GFR 73 L Random Glucose 159 H Calcium 8.8 Urine Color Urine Clarity Urine pH Ur Specific [place] Urine Protein Urine Glucose (UA) Urine Ketones Urine Occult Blood Urine Nitrate Urine Bilirubin Urine Urobilinogen Ur Leukocyte Esterase Urine RBC Urine WBC Ur Squamous Epith Cells Urine Bacteria Hyaline Casts WBC Casts Micro UA Comment Ur Microscopic Review Urine Culture Comments Microbiology 01/30/18 23:00 Clean Catch Urine Urine Culture - Preliminary gram negative rods - Imaging Impressions Chest X-Ray 02/01/18 00:00 CONCLUSION: 1. Diffuse bilateral pulmonary infiltrates consistent with moderate pulmonary edema versus pneumonia. Clinical correlation is recommended. 2. Cardiomegaly. Chest X-Ray 02/02/18 00:00 CONCLUSION: Improvement in the appearance of the chest. There is persistent cardiomegaly with pulmonary vascular engorgement but resolution of the previously seen infiltrates. Assessment and Plan - Assessment (1) Asthma Code(s): J45.909 - Unspecified asthma, uncomplicated Status: Acute (2) CHF (congestive heart failure) Code(s): I50.9 - Heart failure, unspecified Status: Acute (3) Respiratory failure Code(s): J96.90 - Respiratory failure, unspecified, unspecified whether with hypoxia or hypercapnia Status: Acute (4) Chest pain Code(s): R07.9 - Chest pain, unspecified Status: Acute (5) NSTEMI (non-ST elevated myocardial infarction) Code(s): I21.4 - Non-ST elevation (NSTEMI) myocardial infarction Status: Acute (6) Pulmonary hypertension assoc with unclear multi-factorial mechanisms Code(s): I27.29 - Other secondary pulmonary hypertension Status: Acute - Plan 1. Will Place on O2 3 L. 2. Use BIPAP at HS 12/5 CM 3. Change solumedrol to 40 mg BID 4. Duonebs qid. 5. Continue Lasix 40 mg BID 6. CXR ,BMP in am 7. PFT when stable. 8. Continue antibiotic. (3) Respiratory failure Qualifiers: Chronicity: acute Respiratory failure complication: hypoxia Qualified Code(s ): J96.01 - Acute respiratory failure with hypoxia (4) Chest pain Qualifiers: Chest pain type: unspecified Qualified Code(s): R07.9 - Chest pain, unspecified
[2018-02-02] MEDS ORDERED: fentaNYL Citrate Inj 100 MCG/2 ML Ampul ONE (14:44)
[2018-02-02] MEDS ORDERED: Heparin 10,000 UNITS/10 ML Vial (for IV use) ONE (14:44)
[2018-02-02] MEDS ORDERED: Heparin/NS PF Inj 1,000 ML ONE (14:44)
[2018-02-02] MEDS: Ferrous Sulfate 325 MG Tablet PO SCH (14:47)
--- NOTE | 2018-02-02 16:26 | CATHPROC ---
Syntaxin HIS Report Study Information Study Number Admission Scheduled Start Study Start [id number] Jan 30 2018 8:15PM 02/02/2018 Feb 02 2018 2:39PM [facility] [place] [facility] Electrophysiology Study Admit Source Facility Department Emergency department [facility] - Concrete Floor Installer Physician and Clinical Staff Initial [facility] Administrator Tammy Palomo RN Recorder Jessica Brown,RT(R) Scrub Kilo Acevedo,RT(R) Procedures Performed Procedure Location (Site) Vessel Name Coronary Angiograms LCA Left Coronary Coronary Angiograms RCA Right Coronary Wire insertion Fem Art (right) Femoral Art Equipment Time Information Technology Project Manager Description Size Mfg Part Number Used/Scraped CATHETER, FR5 SWAN ZOILA 15:36 [employer] FR 5 [id number] *[id number] Used MONITOR TRANSDUCER, TRUWAVE [id number] 15:35 FABIAN NOLASCO * Used W/STOCKCOCK *[id number] TRANSDUCER, TRUWAVE [id number] 14:42 FABIAN NOLASCO * Used W/STOCKCOCK *[id number] [id number] *[id number] 534-521T *[id number] 14:42 [employer] BLANKET,WARM AIR CCL * Used *[id number] 14:42 [employer] PACK, CCL CUSTOM * Used *[id number] 14:42 [employer] SUPPORT, ARTERIAL ADULT 87455 *[id number] Used BAND, RADIAL COMPRESSION TR [id number] 16:03 [employer] MEDICAL 24CM Used SHORT 24 *[id number] 14:42 [employer] WIRE, EXCHANGE 260CM 3MMJ 260CM Used *[id number] PROBE COVER, STERILE PU2696 15:35 [place] * Used ULTRASOUND W/ GEL *[id number] 15:35 NAMIC MANIFOLD, 2 PORT * Used *[id number] [id number] 14:42 NAMIC MANIFOLD, 4 PORT * Used *[id number] 14:42 [employer]COMED OMNIPAQUE, 350 MG, 150ML 150ML [id number] Used SHEATH, FR6 TRANSRADIAL 80-1060 15:34 [employer] FR 6 Used SLENDER 10CM *[id number] SHEATH, FR6 TRANSRADIAL 80-1060 14:42 [employer] FR 6 Used SLENDER 10CM *[id number] 15:45 [employer] PIGTAIL DUAL LUMEN CATHETER FR 6 5424 *[id number] Used History: Current Medications Medication Dosage/Unit Route Frequency Last Date/Time Taken Statins (any) Beta [place] NORVASC History: Risk Factors Family History of Hypertension Dyslipidemia Previous AR Previous Heart Failure Premature CAD Yes Yes Yes No Yes Prior Valve Prior PCI Prior CABG Surgery No No No Cerebrovascular Peripheral Artery Chronic Lung On Dialysis Diabetes Disease Disease Disease No No Yes Yes No History: Symptoms/Diagnosis Selection Items Chest pain History: Other Current Smoker No Labs Hgb (g/dl) Hct (%) WBC (l/cumm) Platelets (thousands) 11.60-17.00 35.00-51.00 4.00-11.00 150.00-450.00 9.8 29.2 15.5 222 Glucose (mg/dl) BUN (mg/dl) Creatinine (mg/dl) BUN:Creatinine (1:x) 74.00-106.00 7.00-18.00 0.50-1.30 10.00-20.00 159 25 0.7 35.7 Na (meq/l) K (meq/l) 136.00-145.00 3.50-5.10 140 4 INR (PTT:PT) 0.90-1.10 1 Troponin I (ng/ml) CPK (u/l) CPK-MB (ng/ML) 0.02-0.05 26.00-308.00 0.50-3.60 0.12 77 Not Drawn Medication Medication Total Dose (Bolus/Oral) Medication Total Dosage/Unit 1% XYLOCAINE 10 mL FENTANYL 50 mcg OXYGEN 3 l/min RADIAL COCKTAIL 5 mL (Bolus) Medications (Bolus/Oral) Medication Time Given Dosage/Unit Administered By Reason OXYGEN 02/02/2018 2:43:02 PM 3 l/min Patient arrived on 3 l/min OXYGEN via Nasal. FENTANYL 02/02/2018 3:28:08 PM 50 mcg Tammy Palomo 50 mcg FENTANYL given in lab by Tammy Palomo, RN in Left Antecubital via Peripheral IV. Ordered by Mason Burgess. 1% XYLOCAINE 02/02/2018 3:28:33 PM 5 mL Mason Burgess 5 mL 1% XYLOCAINE given in lab by Mason Burgess in Right Radial via Subcutaneous. RADIAL COCKTAIL 02/02/2018 3:30:26 PM 5 mL (Bolus) Mason Burgess 5 mL (Bolus) RADIAL COCKTAIL given in lab by Mason Burgess in Right Radial via Radial. Using [S olution Name]. Reason: Ntg 200mcg Verapamil 2.5mg Heparin 4000U. 1% XYLOCAINE 02/02/2018 3:32:15 PM 5 mL Mason Burgess 5 mL 1% XYLOCAINE given in lab by Mason Burgess in Right Arm via Subcutaneous. Medication (Drip) Medication Time Given Dosage/Unit Concentration/Unit Diluent (ml) Solution IV Solutions 02/02/2018 2:43:44 PM 50 mL (IV) NaCl .9 IV Solutions given in lab by Tammy Palomo, MANUEL in Left Antecubital via Peripheral IV. Pump/Drip Travis w using NaCl .9. IV Solutions 02/02/2018 2:43:46 PM 0 mL (IV) 500 NaCl .9 Patient arrived on IV Solutions in Left Antecubital via Peripheral IV. Pump/Drip Flow = 20 ml/hr usin g NaCl .9. Initial Case Assessment Circulatory - Right Pulses Dorsalis Pedis Femoral Radial 1 1 3 Scale (0,1,2,3,4,d) Circulatory - Left Pulses Dorsalis Pedis Femoral Radial 1 1 Scale (0,1,2,3,4,d) Neurological State Oriented to time-place- Alert Moves all extremities person Chronological Log Time Study Chronological Log 14:40:04 Patient arrived via Bed. 14:40:06 Patient Name, D.O.B, / Armband Verified By R.N. 14:40:07 Consent signed by the physician and the patient and verified by the Concrete Floor Installer staff. 14:40:07 Pre-op and post- op instructions given; patient acknowledges understanding of instruction s. 14:40:08 Verbal Stimulation=2 Physical Stimulation=2 Airway=2 Respiration=1 TOTAL=7. (0=absent, 1= limited, 2=present) 14:43:02 Patient arrived on 3 l/min OXYGEN via Nasal. 14:43:29 Presedation assessment performed by Concrete Floor Installer RN. 14:43:32 Allens test performed on the right radial and ulnar artery. 14:43:37 Patient has been NPO for More than 6Hrs. 14:43:38 Skin Breakdown- 14:43:43 Renaldo Prominences Protected 14:43:44 A # 20 IV was noted in the Upper Arm (right). Grade = 0 14:43:44 IV Solutions given in lab by Tammy Palomo RN in Left Antecubital via Peripheral IV. P ump/Drip Flow using NaCl .9. 14:43:45 A # 20 IV was noted in the Antecubital (left). Grade = 0 14:43:46 Patient arrived on IV Solutions in Left Antecubital via Peripheral IV. Pump/Drip Flow = 2 0 ml/hr using NaCl .9. 14:43:49 History and physical on the chart or being dictated. Vitals capture started with the following parameters, Patient=Adult, Interval=5 min, Initial Xaqefydf=944 mmHg, 14:46:18 Deflation Rate=5 mmHg, Cuff placed on Left Arm 14:47:37 HR=68 bpm, KLNR=064/70 mmhg, SpO2=96.0 %, Resp=19 B/min Assessment: Initial Case Right Pulses: [place] Ped=1, Femoral=1, Radial=3 14:49:53 Left Pulses: [place] Ped=1, Femoral=1 Neurological: State=Alert, Ox3, PRADO 14:51:38 Reference ECG taken 14:52:05 HR=66 bpm, UBAY=869/67 mmhg, SpO2=96.0 %, Resp=11 B/min 14:56:32 Right radial, right brachial, and groin(s) prepped with 2% chlorhexidine, and draped after a 3 min. waiting time. 14:57:06 HR=67 bpm, IPDE=944/67 mmhg, SpO2=96.0 %, Resp=16 B/min 15:02:05 HR=64 bpm, GWTT=301/65 mmhg, SpO2=96.0 %, Resp=17 B/min 15:07:04 HR=64 bpm, KZPI=698/67 mmhg, SpO2=96.0 %, Resp=8 B/min 15:07:48 MD paged 15:12:05 HR=72 bpm, YPPL=876/66 mmhg, SpO2=97.0 %, Resp=17 B/min 15:17:08 HR=65 bpm, IPTK=432/62 mmhg, SpO2=97.0 %, Resp=15 B/min 15:22:05 HR=74 bpm, OZKS=226/66 mmhg, SpO2=96.0 %, Resp=16 B/min 15:24:29 Pressure channel 1 zeroed. 15:24:32 Pressure channel 2 zeroed. 15:24:50 MD paged Time Out. Correct patient, correct procedure, correct physician, labs, allergies, and equipment verified with dental laboratory worker 15:26:57 team present. Fire risk assesment completed (see hard stop sheet for coding). Time Out Conc urred by MD and individual staff in procedure. 15:27:02 HR=75 bpm, AOXI=288/66 mmhg, SpO2=95.0 %, Resp=14 B/min 50 mcg FENTANYL given in lab by Tammy Palomo, MANUEL in Left Antecubital via Peripheral IV. Orde red by Aditya, 15:28:08 Mason Chirinos. 15:28:23 Case Start 15::33 5 mL 1% XYLOCAINE given in lab by Mason Burgess in Right Radial via Subcutaneous. 15:29:53 Access site was Right Radial Artery . A SHEATH, FR6 TRANSRADIAL SLENDER 10CM FR 6 was advanced into the Radial (right) using the Perc utaneous 15:30:17 technique. 5 mL (Bolus) RADIAL COCKTAIL given in lab by Mason Burgess in Right Radial via Radial. Us ing [Solution Name]. 15:30:26 Reason: Ntg 200mcg Verapamil 2.5mg Heparin 4000U. 15:32:03 HR=78 bpm, IBNG=094/62 mmhg, SpO2=94.0 %, Resp=17 B/min 15:32:15 5 mL 1% XYLOCAINE given in lab by Mason Burgess in Right Arm via Subcutaneous. 15:33:31 Access site was Right Brachial Vein via IV access. A SHEATH, FR6 TRANSRADIAL SLENDER 10CM FR 6 was advanced into the Brach. Vein (right) using the Percutaneous 15:34:03 technique. 15:35:28 A CATHETER, FR5 SWAN ZOILA MONITOR FR 5 was inserted via Brach. Vein (right) 15:37:04 HR=75 bpm, ZDDC=507/61 mmhg, SpO2=96.0 %, Resp=16 B/min Recorded Pressure: PCW, HR=61, Condition=Condition 1 15:39:19 (Pulmonary Capillary Wedge) PCW 33/38/28 15:39:49 Saturation: Site=PA (Pulmonary Artery) , O2=66.2 %, Hgb=9.8 gm/dl, Condition=Condition 1. U sed in calculation. Recorded Pressure: MPA, HR=64, Condition=Condition 1 15:41:58 (Main Pulmonary Artery) MPA 54/31/43 15:42:41 Saturation: Site=Ao (Aorta) , O2=94.1 %, Hgb=9.8 gm/dl, Condition=Condition 1. Used in calc ulation. 15:42:48 HR=66 bpm, AVRL=400/65 mmhg, SpO2=97.0 %, Resp=13 B/min Recorded Pressure: RV, HR=65, Condition=Condition 1 15:43:06 (Right Ventricle) RV 61/17/23 Recorded Pressure: RA, HR=64, Condition=Condition 1 15:43:37 (Right Atrium) RA 23// 15:44:02 Pressure channel 1 zeroed. 15:44:04 Pressure channel 2 zeroed. 15:44:33 [place] Zoila Catheter Removed A JR 4.0 INFINITI CATHETER FR 5 was advanced over a wire. OMNIPAQUE, 350 MG, 150ML 150ML was us ed for 15:45:51 injections. 15:47:10 HR=69 bpm, KBNF=654/71 mmhg, SpO2=95.0 %, Resp=15 B/min After removing the current catheter a PIGTAIL DUAL LUMEN CATHETER FR 6 was advanced over a WIRE , EXCHANGE 15:48:33 260CM 3MMJ 260CM. Recorded Pressure: LV, HR=73, Condition=Condition 1 15:50:56 (Left Ventricle) LV 208/12/37 Recorded Pressure: LV, Ao, HR=72, Condition=Condition 1 15:51:20 (Left Ventricle) LV 203/8/35, (Aorta) Ao 138/65/96 Recorded Pressure: LV, Ao, HR=70, Condition=Condition 1 15:51:41 (Left Ventricle) LV 207/14/37, (Aorta) Ao 141/51/98 15:52:14 HR=70 bpm, VHSX=392/65 mmhg, SpO2=96.0 %, Resp=15 B/min After removing the current catheter a JR 4.0 INFINITI CATHETER FR 5 was advanced over a WIRE, E XCHANGE 260CM 15:53:14 3MMJ 260CM. Recorded Pressure: Ao, HR=67, Condition=Condition 1 15:54:25 (Aorta) Ao 136/65/95 15:54:40 The RCA was injected and visualized at various angles. OMNIPAQUE, 350 MG, 150ML 150ML used . After removing the current catheter a JL 3.5 INFINITI CATHETER FR 5 was advanced over a WIRE, E XCHANGE 260CM 15:55:31 3MMJ 260CM. 15:57:15 HR=66 bpm, YEOK=382/74 mmhg, SpO2=96.0 %, Resp=13 B/min 15:58:02 The LCA was injected and visualized at various angles. OMNIPAQUE, 350 MG, 150ML 150ML used . 16:00:40 A wire was inserted via Fem Art (right). 16:00:48 Wire removed 16:00:49 Catheter was removed 16:00:55 Activated Clotting Time Drawn 16:01:57 Case End (Physician broke scrub) 16:02:16 HR=76 bpm, AIMS=062/71 mmhg, SpO2=96.0 %, Resp=17 B/min Radial Compression Device Used. ~VOLUME ML~ mLs of air placed in BAND, RADIAL COMPRESSION TR SH ORT 24 16:04:07 24CM. Affected hand 95 % O2 saturation. 16:05:39 ACT (Normal Range 90-180) = 216 16:07:17 HR=67 bpm, SMED=554/71 mmhg, SpO2=97.0 %, Resp=15 B/min 16:09:37 No case complications noted. 16:09:39 Cine recording checked. 16:09:46 Bedside Report will be given. 16:09:51 Brachial Sheath(s) left in place, will be removed when ACT is appropriate. 16:15:13 Vitals capture stopped. 16:15:49 A Left and Right Heart Cath was performed. 16:15:50 Patient moved to [facility] End Study - Contrast Media Used In Study Contrast Total Opened (mL) Total Used (mL) Total Wasted (mL) Omnipaque 150 30 120 End Study - Maximum Contrast Load Max Contrast Load (mL) 782.8 End Study - Radiation Exposure Fluoro Time (minutes) 5.3 End Study - Patient Disposition Complications Transferred To Interventional Outcome No Critical Care Bed No attempt made
[2018-02-02] MEDS: Montelukast 10 MG Tablet PO SCH (17:45)
--- NOTE | 2018-02-02 18:03 | P.PNCA ---
Subjective Interval history: Post cath doing well No significant CAD but severe with elevated left sided filling pressures Dictation to follow Physical Exam Vital signs: Vital Signs 02/01/18 18:06 02/01/18 19:00 02/01/18 20:00 Temperature Pulse Rate 97 H 95 H Respiratory Rate 20 18 Blood Pressure 172/83 H 167/76 H Pulse Oximetry 96 97 98 02/01/18 20:52 02/01/18 21:00 02/01/18 22:00 Temperature Pulse Rate 89 89 85 Respiratory Rate 16 15 17 Blood Pressure 167/77 H 160/75 H Pulse Oximetry 99 99 02/01/18 23:00 02/01/18 23:27 02/01/18 23:36 Temperature Pulse Rate 74 72 Respiratory Rate 25 H 17 Blood Pressure 155/70 H Pulse Oximetry 99 99 100 02/02/18 00:00 02/02/18 01:00 02/02/18 02:00 Temperature Pulse Rate 69 67 68 Respiratory Rate 32 H 23 22 Blood Pressure 153/68 H 142/65 H 158/67 H Pulse Oximetry 99 98 98 02/02/18 03:00 02/02/18 03:13 02/02/18 04:00 Temperature Pulse Rate 71 67 81 Respiratory Rate 18 16 23 Blood Pressure 164/71 H 167/75 H Pulse Oximetry 99 100 100 02/02/18 04:04 02/02/18 05:00 02/02/18 06:00 Temperature Pulse Rate 77 69 73 Respiratory Rate 18 14 17 Blood Pressure 167/75 H 150/65 H 160/72 H Pulse Oximetry 99 98 100 02/02/18 07:00 02/02/18 07:44 02/02/18 07:46 Temperature Pulse Rate 70 80 Respiratory Rate 18 14 Blood Pressure 161/75 H Pulse Oximetry 99 99 02/02/18 08:00 02/02/18 09:00 02/02/18 10:00 Temperature 98.1 F Pulse Rate 76 73 73 Respiratory Rate 21 22 22 Blood Pressure 163/77 H 166/74 H 153/67 H Pulse Oximetry 96 97 98 02/02/18 11:00 02/02/18 12:00 02/02/18 13:00 Temperature 98.6 F Pulse Rate 66 69 65 Respiratory Rate 27 H 22 17 Blood Pressure 143/65 H 156/69 H 144/65 H Pulse Oximetry 96 96 96 02/02/18 14:00 02/02/18 16:28 02/02/18 16:32 Temperature 98.4 F Pulse Rate 64 65 69 Respiratory Rate 23 18 24 Blood Pressure 150/64 H 164/78 H Pulse Oximetry 97 92 L 02/02/18 17:00 Temperature Pulse Rate 67 Respiratory Rate 14 Blood Pressure 179/73 H Pulse Oximetry 96 Intake & Output 02/01/18 02/02/18 02/02/18 18:59 06:59 18:59 Intake Total 2750 / 2750 200 / 200 242 / 242 Output Total 5500 / 5500 3050 / 3050 Balance -2750 / -2750 -2850 / -2850 242 / 242 Weight 109.6 kg Intake: IV 250 / 250 200 / 200 242 / 242 Heparin/D5W 25,000 U/250 mL 25, 250 / 250 42 / 42 000 unit In 250 ml @ Per Protocol IV.CONT TITRATE PRN Rx #:[id number] Unasyn Inj 1,500 MG In NS Inj 200 / 200 200 / 200 100 ML @ 200 mls/hr IV.SIG Q6H SLOANE Rx#:[id number] Oral 2500 / 2500 Output: Urine 5500 / 5500 Urine Amount (Catheter) 3050 / 3050 Female External 3050 / 3050 Narrative: GEN: Obese elderly W/F Awake, alert, no acute distress SKIN: Warm and dry. No visible lesions HEAD: Atraumatic. Normocephalic. EYES: Pupils equal and round. No scleral icterus. No injection or drainage. ENT: No nasal bleeding or discharge. Mucous membranes pink and moist. NECK: Trachea midline. No JVD. CARDIOVASCULAR: Regular rate and rhythm. 3/6 crescendo-decrescendo to the RSB RESPIRATORY: No accessory muscle use. Few basal crackles. Breath sounds equal bilaterally. GASTROINTESTINAL: Abdomen soft, non-tender, nondistended. Hepatic and splenic margins not palpable. MUSCULOSKELETAL: Extremities without clubbing, cyanosis, but has edema. No obvious deformities. NEUROLOGICAL: Awake and alert. No obvious cranial nerve deficits. Motor grossly within normal limits. Normal speech. PSYCHIATRIC: Appropriate mood and affect. - Urinary Catheter Management Indwelling Urethral Catheter Cath placed during this visit: yes, but has since been removed by the nurse Reason for continuing: Decision to DC catheter Insertion date: 01/30/18 Insertion time: 22:39 Removal date: 01/31/18 Removal time: 12:30 Female External Cath placed during this visit: no Assessment and Plan - Assessment (1) Abnormal EKG Code(s): R94.31 - Abnormal electrocardiogram [ECG] [EKG] Status: Acute (2) NSTEMI (non-ST elevated myocardial infarction) Code(s): I21.4 - Non-ST elevation (NSTEMI) myocardial infarction Status: Acute (3) Respiratory failure Code(s): J96.90 - Respiratory failure, unspecified, unspecified whether with hypoxia or hypercapnia Status: Acute (4) Chest pain Code(s): R07.9 - Chest pain, unspecified Status: Acute - Plan 1) CP/SOB Secondary to severe No significant CAD 2) Acute respiratory failure due to Acute decompensated heart failure Still with elevated left sided filling pressures Con't diuresis, changed to IV Bipap as needed 3) Abnormal EKG Due to severe with subendocardial injury 4) CT surgery consulted Needs further diuresis, but will have to be cautious with her (3) Respiratory failure Qualifiers: Chronicity: acute Respiratory failure complication: hypoxia Qualified Code(s ): J96.01 - Acute respiratory failure with hypoxia (4) Chest pain Qualifiers: Chest pain type: unspecified Qualified Code(s): R07.9 - Chest pain, unspecified
--- NOTE | 2018-02-02 18:49 | P.CON ---
History of Present Illness Service: CT Surgery Consult date: 02/02/18 Requesting Physician: Mason Burgess Reason for Consult: acute repiratory failure, acute diastolic heart failure, severe aortic sten Primary Care Provider: UNKNOWN Family Provider: UNKNOWN Chief Complaint: Dyspnea requiring intubation History of Present Illness: 72-year-old female presented to the emergency department at [place] with complaints of chest pain and shortness of breath for ~ 12 hrs. The nature of the chest pain was pressure pain across the anterior chest without radiation. No palpitation nausea diaphoresis. The patient has history of COPD and has been on 3 liters NC for ~10-15 years continuously. The patient presented in respiratory distress with altered mental status and was promptly intubated. She has responded well to diuresis and meidcal therapy. She was extubated yesterday and had an ECHO done which showed a bicuspid aortic valve with moderate to severe . She underwent LHC/RHC by Dr. Burgess today and has no significant CAD. He did find a ~65mmHg gradient on pullback through the aortic valve. The patient is frail and requires assistance to accomplish her ADLs. She lives with her in [place] and has 2 sons present with her this evening. The patient has ACEI listed in her allergies, but doesn't ever recall taking them, so this may not be the case. Review of Systems Constitutional: Reports fatigue, Reports lack of energy, Reports malaise, Denies anorexia, Denies body ache(s), Denies chills, Denies daytime sleepiness, Denies excessive sweating, Denies fever(s), Denies headache(s), Denies increased appetite, Denies night sweats, Denies weakness, Denies weight gain, Denies weight loss, Denies other Eyes: Denies blind spots, Denies blurry vision, Denies bulging eyes, Denies change in vision, Denies double vision, Denies discharge, Denies dry eyes, Denies floaters, Denies irritation, Denies itchy eyes, Denies loss of vision, Denies pain, Denies requires corrective lenses, Denies sensitivity to light, Denies other Ears, Nose, Mouth, and Throat: Denies abnormal hearing, Denies bleeding gums, Denies bad breath, Denies change in voice, Denies dental pain, Denies difficulty swallowing, Denies dizziness, Denies dry mouth, Denies ear discharge , Denies ear pain, Denies facial pain, Denies headache(s), Denies hearing loss, Denies hoarseness, Denies lip swelling, Denies nosebleed, Denies mouth lesions, Denies mouth pain, Denies nasal congestion, Denies nasal discharge, Denies nasal obstruction, Denies nasal trauma, Denies neck lump, Denies neck pain, Denies nose pain, Denies pain with swallowing, Denies poor balance, Denies post nasal drip, Denies ringing in the ears, Denies sinus pain, Denies sinus pressure , Denies sore throat, Denies throat swelling, Denies tongue swelling, Denies other Cardiovascular: Reports chest pain, Reports chest pain with activity, Reports excessive sweating, Reports leg swelling, Reports shortness of breath, Reports shortness of breath with activity Respiratory: Reports cough, Reports shortness of breath, Reports shortness of breath with activity Gastrointestinal: Reports heartburn, Denies abdominal pain, Denies belching, Denies black, tarry stools, Denies bloating, Denies bright, red blood in stools , Denies change in bowel habits, Denies constant urge to pass stool, Denies change in stools, Denies coffee ground vomit, Denies constipation, Denies cramping, Denies difficulty swallowing, Denies excessive passing of gas, Denies feeling full early, Denies incontinent of stools, Denies loose stools, Denies nausea, Denies pain with swallowing, Denies vomiting, Denies vomiting blood, Denies other Genitourinary: Denies abnormal periods, Denies abnormal vaginal bleeding, Denies absent period, Denies bleeding between periods, Denies blood in urine, Denies difficulty starting urination, Denies difficulty urinating, Denies dribbling after urination, Denies frequent nighttime urination, Denies genital itching, Denies genital lesions, Denies heavy periods, Denies hot flashes, Denies light periods, Denies nipple discharge, Denies painful intercourse, Denies painful periods, Denies painful urination, Denies pelvic pain, Denies prolapse symptoms, Denies sexual problems, Denies side pain, Denies urinary incontinence, Denies urinary urgency, Denies vaginal discharge, Denies vaginal dryness, Denies vaginal odor, Denies vaginal itching, Denies other Musculoskeletal: Reports back pain, Reports joint pain, Reports stiffness, Denies abnormal walking, Denies body aches, Denies decreased muscle mass, Denies deformity, Denies joint swelling, Denies limited joint movement, Denies loss of height, Denies muscle cramps, Denies muscle weakness, Denies neck pain, Denies numbness, Denies radiating pain into limb, Denies tingling, Denies other Skin/Breast: Denies acne, Denies bleeding lesions, Denies boil, Denies breast swelling, Denies breast skin changes, Denies breast pain, Denies breast lump, Denies change in breast shape, Denies change in hair, Denies change in skin color, Denies changing lesions, Denies dry skin, Denies excessive hair growth, Denies hair loss, Denies itching, Denies lesions, Denies nail changes, Denies new lesions, Denies nipple discharge, Denies non-healing lesions, Denies redness , Denies sensitivity to light, Denies rash, Denies skin pain, Denies skin ulcer , Denies sores, Denies stretch candelaria, Denies unusual bruising, Denies wounds, Denies yellowing of the skin, Denies other Neurologic: Denies abnormal hearing, Denies abnormal movements, Denies abnormal speech, Denies abnormal walking, Denies behavioral changes, Denies burning sensations, Denies confusion, Denies dizziness, Denies fainting, Denies frequent falls, Denies headache(s), Denies lack of coordination, Denies localized weakness, Denies loss of vision, Denies memory loss, Denies numbness, Denies other visual disturbances, Denies radiating pain, Denies restless legs, Denies convulsions, Denies seizure-like activity, Denies sensory deficit, Denies tingling, Denies tingling/numbness/burning sensations, Denies tremor(s), Denies unsteadiness, Denies weakness, Denies other Psychiatric: Denies abnormal sleep pattern, Denies anxiety, Denies behavioral changes, Denies change in appetite, Denies change in sex drive, Denies confusion , Denies depression, Denies difficulty concentrating, Denies hearing things others do not hear, Denies hopelessness, Denies irritability, Denies lack of enjoyment, Denies memory loss, Denies mood swings, Denies panic attacks, Denies paranoia, Denies seeing things others do not see, Denies sensing things others do not sense, Denies tactile hallucinations, Denies thoughts of hurting/killing others, Denies thoughts of hurting/killing yourself, Denies other Endocrine: Denies cold intolerance, Denies excessive sweating, Denies flushing, Denies heat intolerance, Denies increased hunger, Denies increased thirst, Denies increased urination, Denies rapid, pounding, or irregular heartbeat, Denies other Hematologic/Lymphatic: Denies easy bleeding, Denies easy bruising, Denies enlarged lymph nodes, Denies other Allergic/Immunologic: Denies GI upset with certain foods, Denies hives, Denies itchy eyes, Denies lip swelling, Denies seasonal runny nose, Denies throat swelling, Denies tongue swelling, Denies wheezing, Denies other PMFSH - History History Provided By: Patient, Family Member - Medical History Medical History: Medical History (Last Updated 02/02/18 @ 18:43 by Samantha Campbell MD) COPD (chronic obstructive pulmonary disease) (Acute) Supplemental oxygen dependent (Acute) Aortic stenosis due to bicuspid aortic valve (Acute) CHF (congestive heart failure) (Acute) Hypertension (Acute) GERD (gastroesophageal reflux disease) - Surgical History Surgical History: Surgical History (Last Updated 02/02/18 @ 18:43 by Samantha Campbell MD) Hx of laparoscopic gastric banding (Acute) - Tobacco History Second Hand Smoke Exposure: Yes Smoking Status: Cognitive impairment - Alcohol History How Often Do You Have a Drink Containing Alcohol: Unable to Obtain - Substance Use History Substance History: Unable to Obtain - Travel History Recent Travel in the [facility] Within the Last 8 Weeks: No Recent Travel Out of the Country Within the Last 8 Weeks: No - Immunization History Tetanus Immunization: Unable to Assess Hx Influenza Vaccine This Season: Unable to Assess Medications and Allergies Active Medications: Active Medications Acetaminophen (Tylenol) 650 mg PO Q6H PRN PRN Reason: PAIN 1-10 AND/OR FEVER >101F Last Admin: 02/01/18 03:13 Dose: 650 mg Acetylcysteine (Mucomyst 10% Neb) 2 ml NEB Q6HR NEB PRN PRN Reason: SHORTNESS OF BREATH Al Hydroxide/Mg Hydroxide (Milk Of Magnesia Liq) 30 ml PO Q12H PRN PRN Reason: Mild Constipation Albuterol (Duoneb Neb (Phu)) 1 ampul NEB Q6HR NEB [facility] Last Admin: 02/02/18 16:22 Dose: Not Given Albuterol (Duoneb Neb (Prn)) 1 ampul NEB Q2HR NEB PRN PRN Reason: WHEEZING Last Admin: 02/01/18 23:32 Dose: 1 ampul Alprazolam (Xanax) 1 mg PO DAILY [facility] Last Admin: 02/02/18 08:55 Dose: 1 mg Amlodipine Besylate (Norvasc) 10 mg PO DAILY [facility] Last Admin: 02/02/18 08:54 Dose: 10 mg Aspirin (Ecotrin) 81 mg PO DAILY [facility] Bisacodyl (Dulcolax Supp) 10 mg RECTAL DAILY PRN PRN Reason: SEVERE CONSITIPATION Budesonide/Formoterol Fumarate (Symbicort 160/4.5 Mcg Inh) 2 puff INH BID [facility] Last Admin: 02/02/18 08:51 Dose: 2 puff Carvedilol (Coreg) 6.25 mg PO BID [facility] Last Admin: 02/02/18 08:55 Dose: 6.25 mg Cetirizine HCl (Zyrtec) 10 mg PO DAILY [facility] Last Admin: 02/02/18 08:53 Dose: 10 mg Chlorhexidine Gluconate (Chlorhexidine 2% Cloth) 3 pack TOPICAL DAILY@0400 [facility] Stop: 02/05/18 03:59 Last Admin: 02/02/18 04:21 Dose: 3 pack Chlorhexidine Gluconate (Chlorhexidine 2% Cloth) 3 pack TOPICAL DAILY@0400 PRN PRN Reason: Extra cloth needed Stop: 02/05/18 03:59 Cyanocobalamin (Vitamin B12) 1,000 mcg PO DAILY [facility] Last Admin: 02/02/18 08:53 Dose: 1,000 mcg Dicyclomine HCl (Bentyl) 20 mg PO QID [facility] Last Admin: 02/02/18 17:42 Dose: 20 mg Dorzolamide HCl (Trusopt 2% Opth Drops) 1 drop EACH EYE TID [facility] Last Admin: 02/02/18 17:43 Dose: 1 drop Famotidine (Pepcid Pf Inj) 20 mg IV.PUSH Q12HR [facility] Last Admin: 02/02/18 08:56 Dose: 20 mg Ferrous Sulfate (Ferosul) 325 mg PO DAILY [facility] Last Admin: 02/02/18 14:47 Dose: Not Given Fluoxetine HCl (Prozac) 40 mg PO BID [facility] Last Admin: 02/02/18 08:54 Dose: 40 mg Fluticasone Propionate (Flovent Hfa 110 Mcg Inh) 1 puff INH Q12HR [facility] Last Admin: 02/02/18 09:28 Dose: 1 puff Furosemide (Lasix Inj) 40 mg IV.PUSH BID@0900,1800 [facility] Gabapentin (Neurontin) 600 mg PO TID [facility] Last Admin: 02/02/18 17:42 Dose: 600 mg Hydrocortisone Acetate (Eldecort 2.5% Cream) 1 applicatio TOPICAL BID [facility] Last Admin: 02/02/18 09:28 Dose: 1 applicatio Hyoscyamine (Levsin) 0.125 mg PO QID [facility] Last Admin: 02/02/18 17:42 Dose: 0.125 mg Ampicillin Sodium/Sulbactam Sodium 1,500 mg/ Sodium Chloride 100 mls @ 200 mls/ hr IV.SIG Q6H [facility] Last Admin: 02/02/18 18:24 Dose: 200 mls/hr Lactobacillus Acidophilus (Lactinex) 1 tab PO DAILY [facility] Last Admin: 02/02/18 08:52 Dose: 1 tab Lactulose (Lactulose Liq) 30 ml PO DAILY PRN PRN Reason: SEVERE CONSITIPATION Levothyroxine Sodium (Synthroid) 50 mcg PO DAILY@0600 [facility] Last Admin: 02/02/18 05:48 Dose: 50 mcg Lidocaine HCl (Xylocaine 2% Jelly) 1 applicatio TOPICAL DAILY PRN PRN Reason: TOPICAL PAIN Lorazepam (Ativan Inj) 0.5 mg IV.PUSH Q6H PRN PRN Reason: ANXIETY Last Admin: 02/02/18 09:39 Dose: 0.5 mg Melatonin (Melatonin) 10 mg PO HS PRN PRN Reason: INSOMNIA Methylprednisolone Sodium Succinate (Solumedrol Inj) 40 mg IV.PUSH Q12HR [facility] Metoclopramide HCl (Reglan Inj) 5 mg IV.PUSH Q6HR [facility]; Protocol Last Admin: 02/02/18 17:42 Dose: 5 mg Metoprolol Tartrate (Lopressor Inj) 2.5 mg IV.PUSH Q6H PRN PRN Reason: SBP>180, DBP>95 Miscellaneous Medication ([facility] Information) 1 each OTHER ONCE ONE Stop: 02/02/18 16:25 Mometasone Furoate (Nasonex Nasal [place]) 2 spray EACH NARE DAILY [facility] Last Admin: 02/02/18 09:28 Dose: 2 spray Montelukast Sodium (Singulair) 10 mg PO QPM [facility] Last Admin: 02/02/18 17:45 Dose: 10 mg Multivitamins (Theragran) 1 tab PO DAILY [facility] Last Admin: 02/02/18 08:55 Dose: 1 tab Ondansetron HCl (Zofran Inj) 4 mg IV.PUSH Q6H PRN PRN Reason: NAUSEA OR VOMITING Pantoprazole Sodium (Protonix) 40 mg PO DAILY [facility] Last Admin: 02/02/18 08:53 Dose: 40 mg Fluocinonide [ Fluocinonide] 1 Applic 0 each TOPICAL BID [facility] Metronidazole [ Metronidazole] 1 Applic 0 each TOPICAL DAILY [facility] Mometasone [Elocon] (1 Applic) 0 each TOPICAL DAILY [facility] Pravastatin Sodium (Pravachol) 40 mg PO DAILY [facility] Last Admin: 02/02/18 08:53 Dose: 40 mg Ropinirole HCl (Requip) 0.25 mg PO TID [facility] Last Admin: 02/02/18 17:42 Dose: 0.25 mg Senna/Docusate Sodium (Anabell-Colace) 1 tab PO BID [facility] Last Admin: 02/02/18 08:55 Dose: 1 tab Sodium Chloride (Ns Flush) 2 ml IV.FLUSH PRN PRN PRN Reason: FLUSH AFTER USING IV ACCESS Sodium Chloride (Ns Flush) 2 ml IV.FLUSH BID [facility] Last Admin: 02/02/18 09:29 Dose: 2 ml Sodium Chloride (Ns Flush) 2 ml IV.FLUSH BID [facility] Sodium Chloride (Ns Flush) 2 ml IV.FLUSH PRN PRN PRN Reason: FLUSH AFTER USING IV ACCESS Tiotropium [place] (Spiriva 18 Mcg Inh) 18 mcg INH DAILY [facility] Last Admin: 02/02/18 09:28 Dose: Not Given Ziprasidone (Geodon) 40 mg PO BID [facility] Last Admin: 02/02/18 08:54 Dose: 40 mg Allergies Allergy/AdvReac Type Severity Reaction Status Date / Time EARL Inhibitors Allergy Anaphylaxis Verified 01/30/18 19:58 Alpha 2 Adrenergic Agonist Allergy Anaphylaxis Verified 01/30/18 19:58 ARB-Angiotensin Receptor Allergy Anaphylaxis Verified 01/30/18 19:59 Antagonist cefaclor Allergy Anaphylaxis Verified 01/30/18 20:01 codeine Allergy Anaphylaxis Verified 01/30/18 20:01 hydralazine Allergy Anaphylaxis Verified 01/30/18 20:02 hydrocodone Allergy Anaphylaxis Verified 01/30/18 20:03 levofloxacin Allergy Anaphylaxis Verified 01/30/18 20:03 meperidine Allergy Anaphylaxis Verified 01/30/18 20:04 nifedipine Allergy Anaphylaxis Verified 01/30/18 20:08 pseudoephedrine Allergy Anaphylaxis Verified 01/30/18 20:09 [From Sudafed] Sulfa (Sulfonamide Allergy Anaphylaxis Verified 01/30/18 20:09 Antibiotics) terconazole Allergy Anaphylaxis Verified 01/30/18 20:10 topiramate Allergy Anaphylaxis Verified 01/30/18 20:11 Home Medications Medication Instructions Recorded Confirmed Type Lactobacillus acidophilus 100 mg PO DAILY 01/30/18 01/30/18 History [Acidophilus] acetylcysteine 01/30/18 History alprazolam 1 mg PO DAILY 01/30/18 01/30/18 History amlodipine [Norvasc] 10 mg PO DAILY 01/30/18 01/30/18 History carvedilol 6.25 mg PO BID 01/30/18 01/30/18 History cetirizine 10 mg PO DAILY 01/30/18 01/30/18 History cranberry 400 mg PO DAILY 01/30/18 01/30/18 History cyanocobalamin (vitamin B-12) 1,000 mcg PO DAILY 01/30/18 01/30/18 History dicyclomine 20 mg PO QID 01/30/18 01/30/18 History dorzolamide [Trusopt] 1 drp OPHTHALMIC (EYE) TID 01/30/18 01/30/18 History ferrous sulfate 325 mg PO DAILY 01/30/18 01/30/18 History fluocinonide 1 applic TOPICAL BID 01/30/18 01/30/18 History fluoxetine [Prozac] 40 mg PO BID 01/30/18 01/30/18 History fluticasone [Flovent HFA] 1 puff INHALATION Q12H 01/30/18 01/30/18 History furosemide [Lasix] 40 mg PO BID 01/30/18 01/30/18 History gabapentin 600 mg PO TID 01/30/18 01/30/18 History hydrocortisone 1 applic TOPICAL BID 01/30/18 01/30/18 History hyoscyamine sulfate [Levsin] 0.125 mg PO QID 01/30/18 01/30/18 History ipratropium bromide [Atrovent HFA] 1 puff INHALATION Q6H 01/30/18 01/30/18 History lansoprazole [Prevacid] 30 mg PO DAILY 01/30/18 01/30/18 History levalbuterol HCl [Xopenex] 1.25 mg INHALATION Q4-6H PRN 01/30/18 01/30/18 History levofloxacin [Levaquin] 5 mg/kg PO Q12H 01/30/18 01/30/18 History levothyroxine 50 mcg PO DAILY 01/30/18 01/30/18 History lidocaine HCl 1 applic TOPICAL DAILY PRN 01/30/18 01/30/18 History melatonin 10 mg PO HS PRN 01/30/18 01/30/18 History metronidazole 1 applic TOPICAL DAILY 01/30/18 01/30/18 History mometasone [Elocon] 1 applic TOPICAL DAILY 01/30/18 01/30/18 History mometasone [Nasonex] 2 spray INTRANASAL DAILY 01/30/18 01/30/18 History montelukast [Singulair] 10 mg PO QPM 01/30/18 01/30/18 History multivitamin 1 tab PO DAILY 01/30/18 01/30/18 History omega [id number] oil [[place]-3] 01/30/18 History ondansetron HCl 4 mg PO Q6-8H PRN 01/30/18 01/30/18 History potassium chloride [Klor-Con M20] 20 meq PO BID 01/30/18 01/30/18 History pravastatin [Pravachol] 40 mg PO DAILY 01/30/18 01/30/18 History ramelteon [Rozerem] 01/30/18 History ropinirole [Requip] 0.25 mg PO TID 01/30/18 01/30/18 History spironolactone [Aldactone] 01/30/18 History temazepam [Restoril] 01/30/18 History ziprasidone HCl [Geodon] 40 mg PO BID 01/30/18 01/30/18 History Physical Exam Vital signs: Vital Signs 02/01/18 19:00 02/01/18 20:00 02/01/18 20:52 Temperature Pulse Rate 97 H 95 H 89 Respiratory Rate 20 18 16 Blood Pressure 172/83 H 167/76 H Pulse Oximetry 97 98 02/01/18 21:00 02/01/18 22:00 02/01/18 23:00 Temperature Pulse Rate 89 85 74 Respiratory Rate 15 17 25 H Blood Pressure 167/77 H 160/75 H 155/70 H Pulse Oximetry 99 99 99 02/01/18 23:27 02/01/18 23:36 02/02/18 00:00 Temperature Pulse Rate 72 69 Respiratory Rate 17 32 H Blood Pressure 153/68 H Pulse Oximetry 99 100 99 02/02/18 01:00 02/02/18 02:00 02/02/18 03:00 Temperature Pulse Rate 67 68 71 Respiratory Rate 23 22 18 Blood Pressure 142/65 H 158/67 H 164/71 H Pulse Oximetry 98 98 99 02/02/18 03:13 02/02/18 04:00 02/02/18 04:04 Temperature Pulse Rate 67 81 77 Respiratory Rate 16 23 18 Blood Pressure 167/75 H 167/75 H Pulse Oximetry 100 100 99 02/02/18 05:00 02/02/18 06:00 02/02/18 07:00 Temperature Pulse Rate 69 73 70 Respiratory Rate 14 17 18 Blood Pressure 150/65 H 160/72 H 161/75 H Pulse Oximetry 98 100 99 02/02/18 07:44 02/02/18 07:46 02/02/18 08:00 Temperature 98.1 F Pulse Rate 80 76 Respiratory Rate 14 21 Blood Pressure 163/77 H Pulse Oximetry 99 96 02/02/18 09:00 02/02/18 10:00 02/02/18 11:00 Temperature Pulse Rate 73 73 66 Respiratory Rate 22 22 27 H Blood Pressure 166/74 H 153/67 H 143/65 H Pulse Oximetry 97 98 96 02/02/18 12:00 02/02/18 13:00 02/02/18 14:00 Temperature 98.6 F Pulse Rate 69 65 64 Respiratory Rate 22 17 23 Blood Pressure 156/69 H 144/65 H 150/64 H Pulse Oximetry 96 96 97 02/02/18 16:28 02/02/18 16:32 02/02/18 17:00 Temperature 98.4 F Pulse Rate 65 69 67 Respiratory Rate 18 24 14 Blood Pressure 164/78 H 179/73 H Pulse Oximetry 92 L 96 Intake & Output 02/01/18 02/02/18 02/02/18 18:59 06:59 18:59 Intake Total 2750 / 2750 200 / 200 242 / 242 Output Total 5500 / 5500 3050 / 3050 Balance -2750 / -2750 -2850 / -2850 242 / 242 Weight 109.6 kg Intake: IV 250 / 250 200 / 200 242 / 242 Heparin/D5W 25,000 U/250 mL 25, 250 / 250 42 / 42 000 unit In 250 ml @ Per Protocol IV.CONT TITRATE PRN Rx #:[id number] Unasyn Inj 1,500 MG In NS Inj 200 / 200 200 / 200 100 ML @ 200 mls/hr IV.SIG Q6H [facility] Rx#:[id number] Oral 2500 / 2500 Output: Urine 5500 / 5500 Urine Amount (Catheter) 3050 / 3050 Female External 3050 / 3050 - Constitutional no acute distress - Routine HEENT Exam Head: Present: normocephalic, atraumatic, cushingoid faces Eye: Present: EOMI, PERRL, normal accommodation ENT: Present: mucous membranes moist - Routine Neck Exam Present: supple - Routine Respiratory Exam Present: rhonchi - Routine Cardiovascular Exam Present: RRR, S1, S2, murmur - Routine Abdominal Exam Present: soft, normoactive bowel sounds - Routine Extremities Exam Present: pulses intact - Routine Skin Exam Present: intact - Routine Neurological Exam Present: alert, oriented X3, CN II-XII intact - Routine Psychiatric Exam Present: normal affect - Urinary Catheter Management Indwelling Urethral Catheter Cath placed during this visit: yes, but has since been removed by the nurse Urethral indwelling: No Reason for continuing: Decision to DC catheter Insertion date: 01/30/18 Insertion time: 22:39 Removal date: 01/31/18 Removal time: 12:30 Female External Cath placed during this visit: no Assessment and Plan - Assessment (1) Respiratory failure Code(s): J96.90 - Respiratory failure, unspecified, unspecified whether with hypoxia or hypercapnia Status: Acute Plan: resolved (2) CHF (congestive heart failure) Code(s): I50.9 - Heart failure, unspecified Status: Acute (3) Aortic stenosis due to bicuspid aortic valve Code(s): Q23.0 - Congenital stenosis of aortic valve; Q23.1 - Congenital insufficiency of aortic valve Status: Acute (4) COPD (chronic obstructive pulmonary disease) Code(s): J44.9 - Chronic obstructive pulmonary disease, unspecified Status: Acute (5) Supplemental oxygen dependent Code(s): Z99.81 - Dependence on supplemental oxygen Status: Acute - Plan Unfortunate 72y/o female with O2 dependent COPD presents with severe and acute CHF requiring intubation. She will likely be at high-risk for open AVR, but will need to acquire PFTs to verify. She is also quite frail. At this time , she appears to be a TAVR candidate. Will follow. (1) Respiratory failure Qualifiers: Chronicity: acute Respiratory failure complication: hypoxia Qualified Code(s ): J96.01 - Acute respiratory failure with hypoxia (2) CHF (congestive heart failure) Qualifiers: Heart failure type: diastolic Heart failure chronicity: acute on chronic Qualified Code(s): I50.33 - Acute on chronic diastolic (congestive) heart failure (4) COPD (chronic obstructive pulmonary disease) Qualifiers: COPD type: emphysema Emphysema type: unspecified Qualified Code(s): J43.9 - Emphysema, unspecified
[2018-02-02] MEDS ORDERED: POLYMYXIN TOPICAL ONE (20:15)
[2018-02-02] MEDS ORDERED: BACITRACIN TOPICAL ONE (20:15)
--- NOTE | 2018-02-02 20:37 | CT ---
EXAM DATE: 02/02/2018 8:18 PM EDT AGE/SEX: 72 years / Female INDICATIONS: Chest pain. Shortness of breath. CLINICAL DATA: This is the patient's initial encounter. Patient reports that signs and symptoms have been present for 4 - 6 days and indicates a pain score of 3/10. MEDICAL/SURGICAL HISTORY: Chronic obstructive pulmonary disease. None. RADIATION DOSE: 18.93 CTDI (mGy) COMPARISON: No prior exams available for comparison. TECHNIQUE: Multiple contiguous axial images were obtained through the chest without contrast. Image s were obtained in suspended respiration using multiple row detector helical technique. Using automa geno exposure control and adjustment of the mA and/or kV according to patient size, radiation dose was kept as low as reasonably achievable to obtain optimal diagnostic quality images. DICOM format imag e data is available electronically for review and comparison. FINDINGS: Lungs: Scattered patchy opacities are noted within the upper lobes and within the left lower lobe co nsistent with possible developing pneumonia. Clinical correlation is recommended. There is a 5 mm non calcified nodule within the right middle lobe which is indeterminate. Follow-up CT of the chest in 6 months is recommended. Mediastinum: Mildly prominent pretracheal and AP window mediastinal lymph nodes are noted. Pretrachea l lymph node measures 19 mm in greatest dimension. Cardiomegaly is noted. Pleurae: Small bilateral pleural effusions are noted. Axillae: Unremarkable. Bony Structures: Unremarkable. Miscellaneous: The examination was extended to include the upper abdomen, and both adrenal glands ar e normal in size and configuration. Lap band device is noted. CONCLUSION: 1. Scattered patchy opacities are noted within the upper lobes and within the left lower lobe consis tent with possible developing pneumonia. Clinical correlation is recommended. 2. Nonspecific pretracheal and AP window mediastinal lymphadenopathy. 3. Small bilateral pleural effusions. 4. Cardiomegaly. 5. 5 mm noncalcified nodule within the right middle lobe which is indeterminate. Follow-up CT of the chest in 6 months is recommended. Electronically signed by: Ariel Frederick MD 02/02/2018 8:36 PM EDT
--- NOTE | 2018-02-03 00:45 | MA ---
cc: Mason Burgess DO DATE: 02/02/2018 PROCEDURE: Left heart catheterization, right heart catheterization, coronary angiogram, hemodynamic evaluation of aortic valve. PREPROCEDURE DIAGNOSIS: Abnormal EKG, elevated troponins, echo showing [id number] aortic stenosis, which appears less than on her exam. POSTPROCEDURE DIAGNOSIS: Mild coronary artery disease, severe aortic stenosis (mean gradient 68, aortic valve area 0.72), moderate pulmonary hypertension (type 2 due to left-sided filling pressures). MEDICATIONS: Fentanyl 50 mcg, nitro 200 mcg, verapamil 2.5 mg, heparin 4000 units. CONTRAST USED: 30 mL. TOTAL FLUOROSCOPY: 5.3 minutes. MODERATE SEDATION: 0 minutes. FRAILTY SCORE: 4. ESTIMATED BLOOD LOSS: 10 mL. PROCEDURAL SUMMARY: Tomas Hoover is a pleasant 72-year-old female who presented with significant shortness of breath due to heart failure and was intubated. During this, she was found to have subendocardial injury on her EKG as well as elevation of AVR. Because of this, she was recommended cardiac catheterization. She also underwent an echocardiogram, which showed [id number] aortic stenosis, but by exam, her aortic stenosis appears worse than this. Risks, benefits, and alternatives were explained to her and she consented to such. She was brought to the lab and prepped in the usual sterile fashion. The right radial artery was accessed using a modified Seldinger technique and placement of a 5/6 Malian slender sheath. She previously had an IV in her antecubital area and so this was exchanged out for a 5/6 Malian slender sheath. Both were easily aspirated and flushed. A Harlem-Sotero catheter was advanced into the wedge position and upon pullback throughout the heart, oxygenations as well as pressures were taken in a standard fashion. Harlem-Sotero catheter was removed. A JR4 was advanced over a J-wire to the ascending aorta and across the aortic valve for measurement of left ventricular pressure. This was exchanged out for a Dawson dual-lumen catheter and simultaneous pressures of the LV and aorta were done at that time. This was pulled back across the valve to show equalization of pressures. The Valente was exchanged for a JR4, which was used for selective angiography of the right coronary artery system. This was exchanged out for a JL3.5, which was used for selective angiography of the left coronary artery system. JL3.5 was removed over a J-wire. A radial band was placed over the arteriotomy site for hemostasis. As ACT values were still elevated, her brachial sheath was left in place with the plan to remove once ACT values were below 180. 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 FINDINGS: LEFT MAIN: Normal-sized vessel with adequate reflux. It bifurcates into an LAD and circumflex. LAD: Normal-sized vessel with mild luminal irregularities throughout. Distally, it supplies one large diagonal with no significant disease. LEFT CIRCUMFLEX: Moderate size vessel with 20-30% disease throughout the mid portion. It gives off 2 major obtuse marginals with no significant disease. RCA: Moderate size vessel, which is overall normal throughout. Distally it supplies a PDA as well as the posterolateral branch with no significant disease. HEMODYNAMICS: RA 20. RV 61/17. RVEDP 23. PA 54/31. Mean PA 43. Wedge 28. Cardiac output 7.0. Cardiac index 3.4. Aortic valve mean gradient 68. Aortic valve area 0.72. IMPRESSION: 1. Mild coronary artery disease by cardiac catheterization. 2. Severe aortic stenosis (mean gradient 68, aortic valve area 0.72). 3. Acute diastolic heart failure. 4. Moderate pulmonary hypertension (type 2 due to elevated left-sided filling pressures). RECOMMENDATIONS: 1. Ms. Ornelas appears to have mild coronary artery disease with severe aortic stenosis. 2. I believe that her shortness of breath is extensively due to severe aortic stenosis as well as her fluid overload state. 3. We will continue to diurese her as her left-sided filling pressures are still extremely high. 4. She will be evaluated by CT surgery for further consideration of AVR versus TAVR. Thank you for allowing me to see Tomas Ornelas. If there are any questions, please do not hesitate to call. Mason Burgess DO VGP/don , 11:56 PM , 12:10 AM
[2018-02-03 03:27] LABS: Hematocrit 26.4 % (35.0-46.0); Hemoglobin 8.9 gm/dL (11.6-15.3); Lymph # (Auto) 0.4 th/mm3 (1.0-4.8); Lymph % (Auto) 2.7 % (9.0-44.0); Mean Corpuscular HGB Conc 33.8 % (32.0-36.0); Mean Corpuscular Hemoglobin 30.2 pg (27.0-34.0); Mean Corpuscular Volume 89.4 fL (80.0-100.0); Mean Platelet Volume 7.7 fL (7.0-11.0); Mono # (Auto) 0.7 th/mm3 (0.0-0.9); Mono % (Auto) 5.5 % (0.0-8.0); Neut # (Auto) 12.1 th/mm3 (1.8-7.7); Neut % (Auto) 91.8 % (16.0-70.0); Platelet Count 196 th/mm3 (150-450); Red Blood Count 2.95 mil/mm3 (4.00-5.30); Red Cell Distribution Width 13.7 % (11.6-17.2); White Blood Count 13.2 th/mm3 (4.0-11.0)
[2018-02-03 03:51] LABS: Calcium 8.5 mg/dL (8.5-10.1); Potassium 3.7 meq/L (3.5-5.1)
[2018-02-03] MEDS: Ampicillin/Sulbactam Inj 1,500 MG in Sodium Chloride 0.9% Inj 100 ML IV.SIG SCH ×4 (06:03→18:41)
[2018-02-03] MEDS: Senna/Docusate Sodium 8.6/50 MG Tablet PO SCH ×3 (06:05→21:14)
[2018-02-03] MEDS: Chlorhexidine Gluconate 2% 1 Pack (2 Cloths) TOPICAL SCH (06:06)
[2018-02-03] MEDS: Metoprolol Inj 5 MG/5 ML Vial IV.PUSH PRN ×2 (07:12→20:07)
[2018-02-03] MEDS: Levothyroxine 50 MCG Tablet PO SCH (07:12)
[2018-02-03] MEDS: amLODIPine 10 MG Tablet PO SCH (08:25)
[2018-02-03] MEDS: MethylPREDNISolone Sod Succinate Inj 40 MG/ML Vial IV.PUSH SCH ×2 (08:25→09:15)
[2018-02-03] MEDS: Gabapentin 300 MG Capsule PO SCH ×3 (08:26→17:25)
[2018-02-03] MEDS: Ferrous Sulfate 325 MG Tablet PO SCH (08:26)
[2018-02-03] MEDS: Carvedilol 6.25 MG Tablet PO SCH ×2 (08:26→21:14)
[2018-02-03] MEDS: Famotidine PF Inj 20 MG/2 ML Vial IV.PUSH SCH ×2 (08:27→21:13)
[2018-02-03] MEDS: Lactobacillus Acidophilus/L. Spores Tablet PO SCH (08:27)
[2018-02-03] MEDS: Budesonide-Formoterol 160/4.5 MCG 6 GM Inhaler INH SCH ×2 (08:28→21:14)
[2018-02-03] MEDS: Dorzolamide 2% Opth Drops 10 ML Bottle EACH EYE SCH ×3 (08:28→17:28)
[2018-02-03] MEDS: Hydrocortisone 2.5% Cream 30 GM Tube TOPICAL SCH ×2 (08:35→21:14)
[2018-02-03] MEDS: Mometasone Furoate 50 MCG/ACT 17 GM Nasal Spray Bottle EACH NARE SCH (08:35)
[2018-02-03] MEDS: Tiotropium Bromide 18 MCG/ACT Inhaler INH SCH ×2 (08:39→10:49)
[2018-02-03] MEDS: FLUoxetine 20 MG Capsule PO SCH ×2 (08:39→21:14)
--- NOTE | 2018-02-03 09:06 | P.PNIM ---
Subjective Interval history: Mrs. Ornelas was afebrile with some HTN overnight (SBP's generally in 160's-170 's). I/O: Net output 1350ml overnight. Patient reports that she used BIPAP overnight; she feels that she is breathing well this morning. Patient does not report chest pain, current shortness of breath, or urinary difficulty. Patient has not had recent BM. Physical Exam Vital signs: Vital Signs 02/02/18 10:00 02/02/18 11:00 02/02/18 12:00 Temperature 98.6 F Pulse Rate 73 66 69 Respiratory Rate 22 27 H 22 Blood Pressure 153/67 H 143/65 H 156/69 H Pulse Oximetry 98 96 96 02/02/18 13:00 02/02/18 14:00 02/02/18 16:28 Temperature Pulse Rate 65 64 65 Respiratory Rate 17 23 18 Blood Pressure 144/65 H 150/64 H Pulse Oximetry 96 97 02/02/18 16:32 02/02/18 17:00 02/02/18 17:15 Temperature 98.4 F Pulse Rate 69 67 67 Respiratory Rate 24 14 17 Blood Pressure 164/78 H 179/73 H 168/72 H Pulse Oximetry 92 L 96 96 02/02/18 17:30 02/02/18 17:45 02/02/18 18:00 Temperature Pulse Rate 72 72 67 Respiratory Rate 21 26 H 25 H Blood Pressure 172/74 H 95/46 L 161/74 H Pulse Oximetry 97 96 98 02/02/18 18:15 02/02/18 18:30 02/02/18 18:44 Temperature Pulse Rate 73 78 82 Respiratory Rate 30 H 29 H 29 H Blood Pressure 166/70 H 172/72 H Pulse Oximetry 97 97 96 02/02/18 18:45 02/02/18 19:09 02/02/18 20:00 Temperature 98.3 F 97.5 F L Pulse Rate 84 79 79 Respiratory Rate 39 H 21 20 Blood Pressure 175/79 H 160/68 H 179/75 H Pulse Oximetry 96 97 96 02/02/18 20:09 02/02/18 20:30 02/02/18 21:00 Temperature 98.3 F Pulse Rate 79 84 76 Respiratory Rate 18 20 18 Blood Pressure 179/75 H 160/68 H Pulse Oximetry 96 98 96 02/02/18 21:09 02/02/18 22:00 02/02/18 22:09 Temperature 97.5 F L 97.5 F L Pulse Rate 79 79 79 Respiratory Rate 17 20 20 Blood Pressure 160/68 H 179/75 H 179/75 H Pulse Oximetry 97 96 96 02/02/18 23:09 02/03/18 00:00 02/03/18 00:28 Temperature 97.5 F L Pulse Rate 92 H 79 63 Respiratory Rate 14 20 14 Blood Pressure 170/75 H 179/75 H Pulse Oximetry 95 96 99 02/03/18 01:00 02/03/18 02:00 02/03/18 03:00 Temperature 97.9 F Pulse Rate 60 56 L 68 Respiratory Rate 17 18 14 Blood Pressure 145/65 H 167/76 H 167/76 H Pulse Oximetry 98 98 99 02/03/18 03:37 02/03/18 04:00 02/03/18 04:08 Temperature Pulse Rate 68 69 Respiratory Rate 18 18 Blood Pressure 175/82 H Pulse Oximetry 98 100 02/03/18 05:00 02/03/18 06:00 02/03/18 07:00 Temperature 98.6 F Pulse Rate 73 69 64 Respiratory Rate 18 18 18 Blood Pressure 173/74 H 175/82 H 188/74 H Pulse Oximetry 96 98 96 Intake & Output 02/02/18 02/03/18 02/03/18 18:59 06:59 18:59 Intake Total 822 / 822 550 / 550 Output Total 1500 / 1500 1600 / 1600 Balance -678 / -678 -1050 / -1050 Weight 109.6 kg Intake: IV 342 / 342 Heparin/D5W 25,000 U/250 mL 25, 42 / 42 000 unit In 250 ml @ Per Protocol IV.CONT TITRATE PRN Rx #:[id number] Unasyn Inj 1,500 MG In NS Inj 300 / 300 100 ML @ 200 mls/hr IV.SIG Q6H SLOANE Rx#:[id number] Oral 480 / 480 350 / 350 Other 200 / 200 Output: Urine 1500 / 1500 Urine Amount (Catheter) 1600 / 1600 Female External 1600 / 1600 Narrative: GEN: Awake, alert, no acute distress Skin: No visible lesions HEENT: EOM I. Normal mucus membranes. On 3L O2 via NC CARDIO: Regular rate and rhythm; prominent systolic murmur. No appreciated edema ; normal perfusion LUNGS: On NC O2. CTAB with exception of some basilar fluid; no wheezes this exam ABD: Soft, nontender, normal bowel sounds NEURO: Grossly normal CN. Grossly normal peripheral motor/sensory function - Urinary Catheter Management Indwelling Urethral Catheter Cath placed during this visit: yes, but has since been removed by the nurse Urethral indwelling: No Reason for continuing: Decision to DC catheter Insertion date: 01/30/18 Insertion time: 22:39 Removal date: 01/31/18 Removal time: 12:30 Female External Cath placed during this visit: no Results - Labs CBC & Chem 7: 02/03/18 02:46 02/03/18 02:46 Laboratory Results - last 24 hr 02/02/18 02/03/18 02/03/18 12:45 02:46 02:46 WBC 13.2 H RBC 2.95 L Hgb 8.9 L Hct 26.4 L MCV 89.4 MCH 30.2 MCHC 33.8 RDW 13.7 Plt Count 196 MPV 7.7 Neut % (Auto) 91.8 H Lymph % (Auto) 2.7 L [place] % (Auto) 5.5 Eos % (Auto) 0.0 Baso % (Auto) 0.0 Neut # (Auto) 12.1 H Lymph # (Auto) 0.4 L [place] # (Auto) 0.7 Eos # (Auto) 0.0 Baso # (Auto) 0.0 WBC Differential . Differential Comment Auto diff final APTT 49.4 H D Sodium 142 Potassium 3.7 Chloride 99 Carbon Dioxide 34.0 H Anion Gap 9 BUN 27 H Creatinine 0.82 Estimated GFR 69 L Random Glucose 133 H Calcium 8.5 Microbiology 01/30/18 23:00 Clean Catch Urine Urine Culture - Preliminary gram negative rods - Imaging Impressions Chest CT 02/02/18 00:00 CONCLUSION: 1. Scattered patchy opacities are noted within the upper lobes and within the left lower lobe consistent with possible developing pneumonia. Clinical correlation is recommended. 2. Nonspecific pretracheal and AP window mediastinal lymphadenopathy. 3. Small bilateral pleural effusions. 4. Cardiomegaly. 5. 5 mm noncalcified nodule within the right middle lobe which is indeterminate. Follow-up CT of the chest in 6 months is recommended. Assessment and Plan - Assessment (1) Respiratory failure Code(s): J96.90 - Respiratory failure, unspecified, unspecified whether with hypoxia or hypercapnia Status: Acute (2) Chest pain Code(s): R07.9 - Chest pain, unspecified Status: Acute (3) Abnormal EKG Code(s): R94.31 - Abnormal electrocardiogram [ECG] [EKG] Status: Acute (4) Asthma Code(s): J45.909 - Unspecified asthma, uncomplicated Status: Acute (5) CHF (congestive heart failure) Code(s): I50.9 - Heart failure, unspecified Status: Acute (6) Pulmonary hypertension assoc with unclear multi-factorial mechanisms Code(s): I27.29 - Other secondary pulmonary hypertension Status: Acute (7) Aortic valvar stenosis Code(s): I35.0 - Nonrheumatic aortic (valve) stenosis Status: Acute - Plan Mrs. Ornelas is a 72 yo F with PMH of COPD who was admitted to [facility] with chest pain and shortness of breath. Patient found to have lethargy and was intubated for airway protection; extubated 01/31. Patient found to have troponin elevations and EKG on arrival with AVR and V1 ST changes which normalized after intubation. Patient evaluated by Cardiology; concern for multi-vessel disease vs demand ischemia. Patient currently medically managed for possible ACS. Patient underwent worsening of respiratory status so was placed on BIPAP, steroids, and given additional diuresis. Patient has plans for heart catheterization Cardiovascular Impression: Chest pain and shortness of breath on admission; troponin 0.18 and EKG concerning for possible coronary disease Evaluated by Cardiology; concern for subendocardial injury and multivessel disease vs left main disease on EKG. Prominent systolic murmur on exam. Had Silica Spray Mixer but no longer does. PMH HTN Echocardiogram- normal EF; no wall motion abnormalities. mod/severe aortic stenosis. Pulmonary pressure 46mmHg -Cardiology management -s/p heart cath; severe aortic stenosis, no significant CAD -CT surgery consulted for severe aortic stenosis -Dr. Campbell evaluated last night; appears to be TAVR candidate despite high risk. Will need PFTs -Continue medical management for possible coronary ischemia -ASA, heparin drip, BB, statin -Continue diuresis with Lasix -Continue Norvasc for BP Respiratory Impression:Underlying COPD; on home O2. Recent need for intubation due to lethargy. Concern for coronary reason for recent pulmonary symptoms Increased cough/wheezing 9/4; given steroids and placed on BIPAP. Pulmonology consulted. Blood gas 02/01 on BIPAP- pH 7.38, CO2 51, bicarb 29 Repeat CXR 02/01 with diffuse infiltrates suggestive of pulmonary edema vs pneumonia 02/01- increased shortness of breath/wheezing; placed on BIPAP, IV steroids, and given diuresis. Pulmonology consulted 02/02- on BIPAP; much improved breathing per patient 02/03- Did well overnight; currently on NC O2 -Appreciate Pulmonology assistance -Continue NC O2 2L, BIPAP when needed -Continue Diuretic therapy -Solumedrol stopped -Continue Duonebs -Continue empiric antibiotic -CT surgery evaluation Impression: UA on admission with nitrates, WBCm many bacteria. Recent suprapubic pain before hospitalization and multiple recent UTI's. Urine culture pending -Monitor culture -Augmentin changed to Unasyn so that PO med not needed for respiratory status Anxiety -Xanax scheduled and as needed Iron deficiency anemia -Ferrous Sulfate Depression -Fluoxetine DVT GI prophylaxis -SCDs -Heparin drip -Pepcid Code Status: Full code Addendum EMR reviewed; Dr. Berrios met with patient; she is currently considering TAVR vs other options. Will continue to monitor for improvement in symptoms w/ diuresis (1) Respiratory failure Qualifiers: Chronicity: acute Respiratory failure complication: hypoxia Qualified Code(s ): J96.01 - Acute respiratory failure with hypoxia (2) Chest pain Qualifiers: Chest pain type: unspecified Qualified Code(s): R07.9 - Chest pain, unspecified (5) CHF (congestive heart failure) Qualifiers: Heart failure type: diastolic Heart failure chronicity: acute on chronic Qualified Code(s): I50.33 - Acute on chronic diastolic (congestive) heart failure
--- NOTE | 2018-02-03 12:05 | P.PN ---
Subjective Interval history: Went for Cardiac cath.O2 sat 97 on 2 L Has critical Aortic valve stenosis. May Need AVR. Physical Exam Vital signs: Vital Signs 02/02/18 13:00 02/02/18 14:00 02/02/18 16:28 Temperature Pulse Rate 65 64 65 Respiratory Rate 17 23 18 Blood Pressure 144/65 H 150/64 H Pulse Oximetry 96 97 02/02/18 16:32 02/02/18 17:00 02/02/18 17:15 Temperature 98.4 F Pulse Rate 69 67 67 Respiratory Rate 24 14 17 Blood Pressure 164/78 H 179/73 H 168/72 H Pulse Oximetry 92 L 96 96 02/02/18 17:30 02/02/18 17:45 02/02/18 18:00 Temperature Pulse Rate 72 72 67 Respiratory Rate 21 26 H 25 H Blood Pressure 172/74 H 95/46 L 161/74 H Pulse Oximetry 97 96 98 02/02/18 18:15 02/02/18 18:30 02/02/18 18:44 Temperature Pulse Rate 73 78 82 Respiratory Rate 30 H 29 H 29 H Blood Pressure 166/70 H 172/72 H Pulse Oximetry 97 97 96 02/02/18 18:45 02/02/18 19:09 02/02/18 20:00 Temperature 98.3 F 97.5 F L Pulse Rate 84 79 79 Respiratory Rate 39 H 21 20 Blood Pressure 175/79 H 160/68 H 179/75 H Pulse Oximetry 96 97 96 02/02/18 20:09 02/02/18 20:30 02/02/18 21:00 Temperature 98.3 F Pulse Rate 79 84 76 Respiratory Rate 18 20 18 Blood Pressure 179/75 H 160/68 H Pulse Oximetry 96 98 96 02/02/18 21:09 02/02/18 22:00 02/02/18 22:09 Temperature 97.5 F L 97.5 F L Pulse Rate 79 79 79 Respiratory Rate 17 20 20 Blood Pressure 160/68 H 179/75 H 179/75 H Pulse Oximetry 97 96 96 02/02/18 23:09 18 00:00 02/03/18 00:28 Temperature 97.5 F L Pulse Rate 92 H 79 63 Respiratory Rate 14 20 14 Blood Pressure 170/75 H 179/75 H Pulse Oximetry 95 96 99 02/03/18 01:00 02/03/18 01:30 02/03/18 02:00 Temperature Pulse Rate 60 57 L 56 L Respiratory Rate 17 12 17 Blood Pressure 145/65 H 148/65 H Pulse Oximetry 98 99 99 02/03/18 02:30 02/03/18 03:00 02/03/18 03:30 Temperature 97.9 F Pulse Rate 57 L 68 69 Respiratory Rate 14 14 32 H Blood Pressure 146/65 H 167/76 H 170/74 H Pulse Oximetry 99 100 99 02/03/18 03:37 02/03/18 04:00 02/03/18 04:08 Temperature Pulse Rate 68 148 H Respiratory Rate 18 65 H Blood Pressure 175/82 H Pulse Oximetry 98 100 02/03/18 04:31 02/03/18 05:00 02/03/18 05:01 Temperature 98.6 F Pulse Rate 73 71 71 Respiratory Rate 15 15 20 Blood Pressure 178/76 H 173/74 H 182/105 H Pulse Oximetry 98 98 99 02/03/18 05:10 02/03/18 05:30 02/03/18 06:00 Temperature Pulse Rate 68 78 73 Respiratory Rate 21 43 H 27 H Blood Pressure 173/74 H 171/70 H 175/82 H Pulse Oximetry 97 96 98 02/03/18 06:01 02/03/18 06:08 02/03/18 06:31 Temperature Pulse Rate 74 72 80 Respiratory Rate 38 H 26 H 23 Blood Pressure 204/84 H 188/80 H 173/74 H Pulse Oximetry 97 98 99 02/03/18 07:00 02/03/18 07:30 02/03/18 08:00 Temperature 98.4 F Pulse Rate 70 64 76 Respiratory Rate 17 16 33 H Blood Pressure 184/77 H 163/69 H 182/76 H Pulse Oximetry 98 98 98 02/03/18 08:22 02/03/18 08:30 02/03/18 08:47 Temperature Pulse Rate 74 72 70 Respiratory Rate 22 16 24 Blood Pressure 189/78 H 189/79 H 200/84 H Pulse Oximetry 98 97 97 02/03/18 08:54 02/03/18 09:00 02/03/18 09:30 Temperature Pulse Rate 73 81 80 Respiratory Rate 41 H 42 H 33 H Blood Pressure 182/84 H 175/81 H 175/80 H Pulse Oximetry 97 98 98 02/03/18 10:00 09/06/18 10:01 02/03/18 10:18 Temperature Pulse Rate 62 62 61 Respiratory Rate 19 17 18 Blood Pressure 152/68 H Pulse Oximetry 97 97 98 02/03/18 10:30 Temperature Pulse Rate 62 Respiratory Rate 22 Blood Pressure 152/69 H Pulse Oximetry 98 Intake & Output 02/02/18 02/03/18 02/03/18 18:59 06:59 18:59 Intake Total 822 / 822 550 / 550 Output Total 1500 / 1500 1600 / 1600 Balance -678 / -678 -1050 / -1050 Weight 109.6 kg Intake: IV 342 / 342 Heparin/D5W 25,000 U/250 mL 25, 42 / 42 000 unit In 250 ml @ Per Protocol IV.CONT TITRATE PRN Rx #:[id number] Unasyn Inj 1,500 MG In NS Inj 300 / 300 100 ML @ 200 mls/hr IV.SIG Q6H SLOANE Rx#:[id number] Oral 480 / 480 350 / 350 Other 200 / 200 Output: Urine 1500 / 1500 Urine Amount (Catheter) 1600 / 1600 Female External 1600 / 1600 Narrative: GEN: Obese elderly W/F Awake, alert, no acute distress SKIN: Warm and dry. No visible lesions HEAD: Atraumatic. Normocephalic. EYES: Pupils equal and round. No scleral icterus. No injection or drainage. ENT: No nasal bleeding or discharge. Mucous membranes pink and moist. NECK: Trachea midline. No JVD. CARDIOVASCULAR: Regular rate and rhythm. 3/6 murmur LSB RESPIRATORY: No accessory muscle use. Few basal crackles. Breath sounds equal bilaterally. GASTROINTESTINAL: Abdomen soft, non-tender, nondistended. Hepatic and splenic margins not palpable. MUSCULOSKELETAL: Extremities without clubbing, cyanosis, but has edema. No obvious deformities. NEUROLOGICAL: Awake and alert. No obvious cranial nerve deficits. Motor grossly within normal limits. Normal speech. PSYCHIATRIC: Appropriate mood and affect. - Urinary Catheter Management Indwelling Urethral Catheter Cath placed during this visit: yes, but has since been removed by the nurse Urethral indwelling: No Reason for continuing: Decision to DC catheter Insertion date: 01/30/18 Insertion time: 22:39 Removal date: 01/31/18 Removal time: 12:30 Female External Cath placed during this visit: no Results - Labs CBC & Chem 7: 02/03/18 02:46 02/03/18 02:46 Laboratory Results - last 24 hr 02/02/18 02/03/18 02/03/18 12:45 02:46 02:46 WBC 13.2 H RBC 2.95 L Hgb 8.9 L Hct 26.4 L MCV 89.4 MCH 30.2 MCHC 33.8 RDW 13.7 Plt Count 196 MPV 7.7 Neut % (Auto) 91.8 H Lymph % (Auto) 2.7 L [place] % (Auto) 5.5 Eos % (Auto) 0.0 Baso % (Auto) 0.0 Neut # (Auto) 12.1 H Lymph # (Auto) 0.4 L [place] # (Auto) 0.7 Eos # (Auto) 0.0 Baso # (Auto) 0.0 WBC Differential . Differential Comment Auto diff final APTT 49.4 H D Sodium 142 Potassium 3.7 Chloride 99 Carbon Dioxide 34.0 H Anion Gap 9 BUN 27 H Creatinine 0.82 Estimated GFR 69 L Random Glucose 133 H Calcium 8.5 Microbiology 01/30/18 23:00 Clean Catch Urine Urine Culture - Final Enterobacter aerogenes - Imaging Impressions Chest CT 02/02/18 00:00 CONCLUSION: 1. Scattered patchy opacities are noted within the upper lobes and within the left lower lobe consistent with possible developing pneumonia. Clinical correlation is recommended. 2. Nonspecific pretracheal and AP window mediastinal lymphadenopathy. 3. Small bilateral pleural effusions. 4. Cardiomegaly. 5. 5 mm noncalcified nodule within the right middle lobe which is indeterminate. Follow-up CT of the chest in 6 months is recommended. Assessment and Plan - Assessment (1) Asthma Code(s): J45.909 - Unspecified asthma, uncomplicated Status: Acute (2) CHF (congestive heart failure) Code(s): I50.9 - Heart failure, unspecified Status: Acute (3) Respiratory failure Code(s): J96.90 - Respiratory failure, unspecified, unspecified whether with hypoxia or hypercapnia Status: Acute (4) Chest pain Code(s): R07.9 - Chest pain, unspecified Status: Acute (5) NSTEMI (non-ST elevated myocardial infarction) Code(s): I21.4 - Non-ST elevation (NSTEMI) myocardial infarction Status: Acute (6) Pulmonary hypertension assoc with unclear multi-factorial mechanisms Code(s): I27.29 - Other secondary pulmonary hypertension Status: Acute (7) Aortic valvar stenosis Code(s): I35.0 - Nonrheumatic aortic (valve) stenosis Status: Acute - Plan 1. Will Place on O2 2 L. 2. Use BIPAP at HS 12/5 CM 3. D/C solumedrol 4. Duonebs qid. 5. Continue Lasix 40 mg BID 6. CBC ,BMP in am 7. PFT in am 8. Continue antibiotic. 9. Cardiothoracic surgery evaluation (2) CHF (congestive heart failure) Qualifiers: Heart failure type: diastolic Heart failure chronicity: acute on chronic Qualified Code(s): I50.33 - Acute on chronic diastolic (congestive) heart failure (3) Respiratory failure Qualifiers: Chronicity: acute Respiratory failure complication: hypoxia Qualified Code(s ): J96.01 - Acute respiratory failure with hypoxia (4) Chest pain Qualifiers: Chest pain type: unspecified Qualified Code(s): R07.9 - Chest pain, unspecified
--- NOTE | 2018-02-03 14:54 | P.CON ---
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 Patient was admitted to the hospital in respiratory distress and underwent intubation with mechanical ventilation. Subsequently she has been extubated and is on supplemental oxygen therapy. She has a known history of aortic stenosis and underwent a PICC cath which did not reveal any epicardial coronary artery disease. I am now been consulted for a second surgical opinion regarding her underlying cardiac valvular pathology. At the present time she is in no apparent distress, resting comfortably on her bed with supplemental oxygen therapy. She does report easy fatigability and program as of shortness of breath with minimal exertion. Review of Systems All other systems reviewed negative except as stated in HPI Cardiovascular: Reports shortness of breath, Reports shortness of breath with activity, Denies chest pain Respiratory: Reports shortness of breath, Reports shortness of breath with activity, Denies cough, Denies coughing up blood PMFSH - History History Provided By: Patient, Family Member - Medical History Medical History: Medical History (Last Updated 02/02/18 @ 18:43 by Samantha Campbell MD) COPD (chronic obstructive pulmonary disease) (Acute) Supplemental oxygen dependent (Acute) Aortic stenosis due to bicuspid aortic valve (Acute) CHF (congestive heart failure) (Acute) Hypertension (Acute) GERD (gastroesophageal reflux disease) - Surgical History Surgical History: Surgical History (Last Updated 02/02/18 @ 18:43 by Samantha Campbell MD) Hx of laparoscopic gastric banding (Acute) - Tobacco History Second Hand Smoke Exposure: Yes Smoking Status: Cognitive impairment - Alcohol History How Often Do You Have a Drink Containing Alcohol: Unable to Obtain - Substance Use History Substance History: Unable to Obtain - Travel History Recent Travel in the [place] Within the Last 8 Weeks: No Recent Travel Out of the Country Within the Last 8 Weeks: No - Immunization History Tetanus Immunization: Unable to Assess Hx Influenza Vaccine This Season: Unable to Assess Medications and Allergies Active Medications: Active Medications Acetaminophen (Tylenol) 650 mg PO Q6H PRN PRN Reason: PAIN 1-10 AND/OR FEVER >101F Last Admin: 02/01/18 03:13 Dose: 650 mg Acetylcysteine (Mucomyst 10% Neb) 2 ml NEB Q6HR NEB PRN PRN Reason: SHORTNESS OF BREATH Last Admin: 02/02/18 20:33 Dose: 2 ml Al Hydroxide/Mg Hydroxide (Milk Of Magnhaley Liq) 30 ml PO Q12H PRN PRN Reason: Mild Constipation Albuterol (Duoneb Neb (Phu)) 1 ampul NEB Q6HR NEB [facility] Last Admin: 02/03/18 10:18 Dose: 1 ampul Albuterol (Duoneb Neb (Prn)) 1 ampul NEB Q2HR NEB PRN PRN Reason: WHEEZING Last Admin: 02/03/18 00:27 Dose: 1 ampul Alprazolam (Xanax) 1 mg PO DAILY [facility] Last Admin: 02/03/18 08:28 Dose: 1 mg Amlodipine Besylate (Norvasc) 10 mg PO DAILY [facility] Last Admin: 02/03/18 08:25 Dose: 10 mg Aspirin (Ecotrin) 81 mg PO DAILY [facility] Last Admin: 02/03/18 08:34 Dose: 81 mg Bisacodyl (Dulcolax Supp) 10 mg RECTAL DAILY PRN PRN Reason: SEVERE CONSITIPATION Budesonide/Formoterol Fumarate (Symbicort 160/4.5 Mcg Inh) 2 puff INH BID [facility] Last Admin: 02/03/18 08:28 Dose: 2 puff Carvedilol (Coreg) 6.25 mg PO BID [facility] Last Admin: 02/03/18 08:26 Dose: 6.25 mg Cetirizine HCl (Zyrtec) 10 mg PO DAILY [facility] Last Admin: 02/03/18 08:28 Dose: 10 mg Chlorhexidine Gluconate (Chlorhexidine 2% Cloth) 3 pack TOPICAL DAILY@0400 [facility] Stop: 02/05/18 03:59 Last Admin: 02/03/18 06:06 Dose: 3 pack Chlorhexidine Gluconate (Chlorhexidine 2% Cloth) 3 pack TOPICAL DAILY@0400 PRN PRN Reason: Extra cloth needed Stop: 02/05/18 03:59 Cyanocobalamin (Vitamin B12) 1,000 mcg PO DAILY [facility] Last Admin: 02/03/18 08:26 Dose: 1,000 mcg Dicyclomine HCl (Bentyl) 20 mg PO QID [facility] Last Admin: 02/03/18 12:21 Dose: 20 mg Dorzolamide HCl (Trusopt 2% Opth Drops) 1 drop EACH EYE TID [facility] Last Admin: 02/03/18 12:22 Dose: 1 drop Famotidine (Pepcid Pf Inj) 20 mg IV.PUSH Q12HR [facility] Last Admin: 02/03/18 08:27 Dose: 20 mg Ferrous Sulfate (Ferosul) 325 mg PO DAILY [facility] Last Admin: 02/03/18 08:26 Dose: 325 mg Fluoxetine HCl (Prozac) 40 mg PO BID [facility] Last Admin: 02/03/18 08:39 Dose: 40 mg Fluticasone Propionate (Flovent Hfa 110 Mcg Inh) 1 puff INH Q12HR [facility] Last Admin: 02/03/18 08:35 Dose: 1 puff Furosemide (Lasix Inj) 40 mg IV.PUSH BID@0900,1800 [facility] Last Admin: 02/03/18 08:27 Dose: 40 mg Gabapentin (Neurontin) 600 mg PO TID [facility] Last Admin: 02/03/18 12:21 Dose: 600 mg Hydrocortisone Acetate (Eldecort 2.5% Cream) 1 applicatio TOPICAL BID [facility] Last Admin: 02/03/18 08:35 Dose: 1 applicatio Hyoscyamine (Levsin) 0.125 mg PO QID [facility] Last Admin: 02/03/18 12:21 Dose: 0.125 mg Ampicillin Sodium/Sulbactam Sodium 1,500 mg/ Sodium Chloride 100 mls @ 200 mls/ hr IV.SIG Q6H [facility] Last Admin: 02/03/18 12:21 Dose: 200 mls/hr Lactobacillus Acidophilus (Lactinex) 1 tab PO DAILY [facility] Last Admin: 02/03/18 08:27 Dose: 1 tab Lactulose (Lactulose Liq) 30 ml PO DAILY PRN PRN Reason: SEVERE CONSITIPATION Levothyroxine Sodium (Synthroid) 50 mcg PO DAILY@0600 [facility] Last Admin: 02/03/18 07:12 Dose: 50 mcg Lidocaine HCl (Xylocaine 2% Jelly) 1 applicatio TOPICAL DAILY PRN PRN Reason: TOPICAL PAIN Lorazepam (Ativan Inj) 0.5 mg IV.PUSH Q6H PRN PRN Reason: ANXIETY Last Admin: 02/02/18 22:56 Dose: 0.5 mg Melatonin (Melatonin) 10 mg PO HS PRN PRN Reason: INSOMNIA Methylprednisolone Sodium Succinate (Solumedrol Inj) 40 mg IV.PUSH Q12HR [facility] Last Admin: 02/03/18 08:25 Dose: 40 mg Metoclopramide HCl (Reglan Inj) 5 mg IV.PUSH Q6HR [facility]; Protocol Last Admin: 02/03/18 12:20 Dose: 5 mg Metoprolol Tartrate (Lopressor Inj) 2.5 mg IV.PUSH Q6H PRN PRN Reason: SBP>180, DBP>95 Last Admin: 02/03/18 07:12 Dose: 2.5 mg Mometasone Furoate (Nasonex Nasal [place]win) 2 spray EACH NARE DAILY [facility] Last Admin: 02/03/18 08:35 Dose: 2 spray Montelukast Sodium (Singulair) 10 mg PO QPM [facility] Last Admin: 02/02/18 17:45 Dose: 10 mg Multivitamins (Theragran) 1 tab PO DAILY [facility] Last Admin: 02/03/18 08:26 Dose: 1 tab Ondansetron HCl (Zofran Inj) 4 mg IV.PUSH Q6H PRN PRN Reason: NAUSEA OR VOMITING Pantoprazole Sodium (Protonix) 40 mg PO DAILY [facility] Last Admin: 02/03/18 08:28 Dose: 40 mg Fluocinonide [ Fluocinonide] 1 Applic 0 each TOPICAL BID [facility] Metronidazole [ Metronidazole] 1 Applic 0 each TOPICAL DAILY [facility] Mometasone [Elocon] (1 Applic) 0 each TOPICAL DAILY [facility] Pravastatin Sodium (Pravachol) 40 mg PO DAILY [facility] Last Admin: 02/03/18 08:26 Dose: 40 mg Ropinirole HCl (Requip) 0.25 mg PO TID [facility] Last Admin: 02/03/18 12:21 Dose: 0.25 mg Senna/Docusate Sodium (Anabell-Colace) 1 tab PO BID [facility] Last Admin: 02/03/18 08:26 Dose: 1 tab Sodium Chloride (Ns Flush) 2 ml IV.FLUSH BID [facility] Last Admin: 02/03/18 08:29 Dose: 2 ml Sodium Chloride (Ns Flush) 2 ml IV.FLUSH PRN PRN PRN Reason: FLUSH AFTER USING IV ACCESS Tiotropium Bradley (Spiriva 18 Mcg Inh) 18 mcg INH DAILY [facility] Last Admin: 02/03/18 10:49 Dose: Not Given Ziprasidone (Geodon) 40 mg PO BID [facility] Last Admin: 02/03/18 08:25 Dose: 40 mg Allergies Allergy/AdvReac Type Severity Reaction Status Date / Time EARL Inhibitors Allergy Anaphylaxis Verified 01/30/18 19:58 Alpha 2 Adrenergic Agonist Allergy Anaphylaxis Verified 01/30/18 19:58 ARB-Angiotensin Receptor Allergy Anaphylaxis Verified 01/30/18 19:59 Antagonist cefaclor Allergy Anaphylaxis Verified 01/30/18 20:01 codeine Allergy Anaphylaxis Verified 01/30/18 20:01 hydralazine Allergy Anaphylaxis Verified 01/30/18 20:02 hydrocodone Allergy Anaphylaxis Verified 01/30/18 20:03 levofloxacin Allergy Anaphylaxis Verified 01/30/18 20:03 meperidine Allergy Anaphylaxis Verified 01/30/18 20:04 nifedipine Allergy Anaphylaxis Verified 01/30/18 20:08 pseudoephedrine Allergy Anaphylaxis Verified 01/30/18 20:09 [From Sudafed] Sulfa (Sulfonamide Allergy Anaphylaxis Verified 01/30/18 20:09 Antibiotics) terconazole Allergy Anaphylaxis Verified 01/30/18 20:10 topiramate Allergy Anaphylaxis Verified 01/30/18 20:11 Home Medications Medication Instructions Recorded Confirmed Type Lactobacillus acidophilus 100 mg PO DAILY 01/30/18 01/30/18 History [Acidophilus] acetylcysteine 01/30/18 History alprazolam 1 mg PO DAILY 01/30/18 01/30/18 History amlodipine [Norvasc] 10 mg PO DAILY 01/30/18 01/30/18 History carvedilol 6.25 mg PO BID 01/30/18 01/30/18 History cetirizine 10 mg PO DAILY 01/30/18 01/30/18 History cranberry 400 mg PO DAILY 01/30/18 01/30/18 History cyanocobalamin (vitamin B-12) 1,000 mcg PO DAILY 01/30/18 01/30/18 History dicyclomine 20 mg PO QID 01/30/18 01/30/18 History dorzolamide [Trusopt] 1 drp OPHTHALMIC (EYE) TID 01/30/18 01/30/18 History ferrous sulfate 325 mg PO DAILY 01/30/18 01/30/18 History fluocinonide 1 applic TOPICAL BID 01/30/18 01/30/18 History fluoxetine [Prozac] 40 mg PO BID 01/30/18 01/30/18 History fluticasone [Flovent HFA] 1 puff INHALATION Q12H 01/30/18 01/30/18 History furosemide [Lasix] 40 mg PO BID 01/30/18 01/30/18 History gabapentin 600 mg PO TID 01/30/18 01/30/18 History hydrocortisone 1 applic TOPICAL BID 01/30/18 01/30/18 History hyoscyamine sulfate [Levsin] 0.125 mg PO QID 01/30/18 01/30/18 History ipratropium bromide [Atrovent HFA] 1 puff INHALATION Q6H 01/30/18 01/30/18 History lansoprazole [Prevacid] 30 mg PO DAILY 01/30/18 01/30/18 History levalbuterol HCl [Xopenex] 1.25 mg INHALATION Q4-6H PRN 01/30/18 01/30/18 History levofloxacin [Levaquin] 5 mg/kg PO Q12H 01/30/18 01/30/18 History levothyroxine 50 mcg PO DAILY 01/30/18 01/30/18 History lidocaine HCl 1 applic TOPICAL DAILY PRN 01/30/18 01/30/18 History melatonin 10 mg PO HS PRN 01/30/18 01/30/18 History metronidazole 1 applic TOPICAL DAILY 01/30/18 01/30/18 History mometasone [Elocon] 1 applic TOPICAL DAILY 01/30/18 01/30/18 History mometasone [Nasonex] 2 spray INTRANASAL DAILY 01/30/18 01/30/18 History montelukast [Singulair] 10 mg PO QPM 01/30/18 01/30/18 History multivitamin 1 tab PO DAILY 01/30/18 01/30/18 History omega 3-ghj-zch-fish oil [[place]-3] 01/30/18 History ondansetron HCl 4 mg PO Q6-8H PRN 01/30/18 01/30/18 History potassium chloride [Klor-Con M20] 20 meq PO BID 01/30/18 01/30/18 History pravastatin [Pravachol] 40 mg PO DAILY 01/30/18 01/30/18 History ramelteon [Rozerem] 01/30/18 History ropinirole [Requip] 0.25 mg PO TID 01/30/18 01/30/18 History spironolactone [Aldactone] 01/30/18 History temazepam [Restoril] 01/30/18 History ziprasidone HCl [Geodon] 40 mg PO BID 01/30/18 01/30/18 History Physical Exam Vital signs: Vital Signs 02/02/18 16:28 02/02/18 16:32 02/02/18 17:00 Temperature 98.4 F Pulse Rate 65 69 67 Respiratory Rate 18 24 14 Blood Pressure 164/78 H 179/73 H Pulse Oximetry 92 L 96 02/02/18 17:15 02/02/18 17:30 02/02/18 17:45 Temperature Pulse Rate 67 72 72 Respiratory Rate 17 21 26 H Blood Pressure 168/72 H 172/74 H 95/46 L Pulse Oximetry 96 97 96 02/02/18 18:00 02/02/18 18:15 02/02/18 18:30 Temperature Pulse Rate 67 73 78 Respiratory Rate 25 H 30 H 29 H Blood Pressure 161/74 H 166/70 H 172/72 H Pulse Oximetry 98 97 97 02/02/18 18:44 02/02/18 18:45 02/02/18 19:09 Temperature 98.3 F Pulse Rate 82 84 79 Respiratory Rate 29 H 39 H 21 Blood Pressure 175/79 H 160/68 H Pulse Oximetry 96 96 97 02/02/18 20:00 02/02/18 20:09 02/02/18 20:30 Temperature 97.5 F L 98.3 F Pulse Rate 79 79 84 Respiratory Rate 20 18 20 Blood Pressure 179/75 H 179/75 H Pulse Oximetry 96 96 98 02/02/18 21:00 02/02/18 21:09 02/02/18 22:00 Temperature 97.5 F L Pulse Rate 76 79 79 Respiratory Rate 18 17 20 Blood Pressure 160/68 H 160/68 H 179/75 H Pulse Oximetry 96 97 96 02/02/18 22:09 02/02/18 23:09 02/03/18 00:00 Temperature 97.5 F L 97.5 F L Pulse Rate 79 92 H 79 Respiratory Rate 20 14 20 Blood Pressure 179/75 H 170/75 H 179/75 H Pulse Oximetry 96 95 96 02/03/18 00:28 02/03/18 01:00 02/03/18 01:30 Temperature Pulse Rate 63 60 57 L Respiratory Rate 14 17 12 Blood Pressure 145/65 H Pulse Oximetry 99 98 99 02/03/18 02:00 02/03/18 02:30 02/03/18 03:00 Temperature 97.9 F Pulse Rate 56 L 57 L 68 Respiratory Rate 17 14 14 Blood Pressure 148/65 H 146/65 H 167/76 H Pulse Oximetry 99 99 100 02/03/18 03:30 02/03/18 03:37 02/03/18 04:00 Temperature Pulse Rate 69 68 148 H Respiratory Rate 32 H 18 65 H Blood Pressure 170/74 H 175/82 H Pulse Oximetry 99 98 02/03/18 04:08 02/03/18 04:31 02/03/18 05:00 Temperature 98.6 F Pulse Rate 73 71 Respiratory Rate 15 15 Blood Pressure 178/76 H 173/74 H Pulse Oximetry 100 98 98 02/03/18 05:01 02/03/18 05:10 02/03/18 05:30 Temperature Pulse Rate 71 68 78 Respiratory Rate 20 21 43 H Blood Pressure 182/105 H 173/74 H 171/70 H Pulse Oximetry 99 97 96 02/03/18 06:00 02/03/18 06:01 02/03/18 06:08 Temperature Pulse Rate 73 74 72 Respiratory Rate 27 H 38 H 26 H Blood Pressure 175/82 H 204/84 H 188/80 H Pulse Oximetry 98 97 98 02/03/18 06:31 02/03/18 07:00 02/03/18 07:30 Temperature Pulse Rate 80 70 64 Respiratory Rate 23 17 16 Blood Pressure 173/74 H 184/77 H 163/69 H Pulse Oximetry 99 98 98 02/03/18 08:00 02/03/18 08:22 02/03/18 08:30 Temperature 98.4 F Pulse Rate 76 74 72 Respiratory Rate 33 H 22 16 Blood Pressure 182/76 H 189/78 H 189/79 H Pulse Oximetry 98 98 97 02/03/18 08:47 02/03/18 08:54 02/03/18 09:00 Temperature Pulse Rate 70 73 81 Respiratory Rate 24 41 H 42 H Blood Pressure 200/84 H 182/84 H 175/81 H Pulse Oximetry 97 97 98 02/03/18 09:30 02/03/18 10:00 02/03/18 10:01 Temperature Pulse Rate 80 62 62 Respiratory Rate 33 H 19 17 Blood Pressure 175/80 H 152/68 H Pulse Oximetry 98 97 97 02/03/18 10:18 02/03/18 10:30 02/03/18 11:00 Temperature Pulse Rate 61 62 63 Respiratory Rate 18 22 25 H Blood Pressure 152/69 H Pulse Oximetry 98 98 98 02/03/18 11:01 02/03/18 11:30 02/03/18 12:00 Temperature Pulse Rate 64 67 75 Respiratory Rate 35 H 19 30 H Blood Pressure 157/74 H 161/72 H Pulse Oximetry 98 98 97 02/03/18 12:01 02/03/18 12:14 02/03/18 12:31 Temperature Pulse Rate 71 68 75 Respiratory Rate 21 29 H 31 H Blood Pressure 183/80 H 167/76 H 172/95 H Pulse Oximetry 98 97 96 02/03/18 12:49 02/03/18 13:00 02/03/18 13:31 Temperature 98.1 F Pulse Rate 75 67 107 H Respiratory Rate 25 H 30 H 31 H Blood Pressure 183/80 H 178/81 H 167/77 H Pulse Oximetry 97 99 98 02/03/18 14:00 Temperature Pulse Rate 64 Respiratory Rate 27 H Blood Pressure 163/75 H Pulse Oximetry 99 Intake & Output 02/02/18 02/03/18 02/03/18 18:59 06:59 18:59 Intake Total 822 / 822 650 / 650 Output Total 1500 / 1500 1600 / 1600 Balance -678 / -678 -950 / -950 Weight 109.6 kg Intake: IV 342 / 342 100 / 100 Heparin/D5W 25,000 U/250 mL 25, 42 / 42 000 unit In 250 ml @ Per Protocol IV.CONT TITRATE PRN Rx #:[id number] Unasyn Inj 1,500 MG In NS Inj 300 / 300 100 / 100 100 ML @ 200 mls/hr IV.SIG Q6H [facility] Rx#:[id number] Oral 480 / 480 350 / 350 Other 200 / 200 Output: Urine 1500 / 1500 Urine Amount (Catheter) 1600 / 1600 Female External 1600 / 1600 - Constitutional no acute distress, obese - Routine HEENT Exam Head: Present: normocephalic, atraumatic Eye: Present: EOMI, PERRL ENT: Present: mucous membranes moist - Routine Neck Exam Present: supple, full ROM. Absent: JVD, carotid bruit, lymphadenopathy - Routine Respiratory Exam Present: CTA bilaterally, distant breath sounds. Absent: accessory muscle use - Routine Cardiovascular Exam Present: RRR, S1, S2, murmur. Absent: gallop, rubs - Detailed Cardiovascular Exam: Murmur 1 Type: Present: holosystolic Location: Present: right sternal border Characteristics: Present: crescendo - Routine Abdominal Exam Present: soft, normoactive bowel sounds. Absent: tenderness, distended, rebound , guarding - Routine Extremities Exam Present: edema, pulses intact, normal capillary refill. Absent: cyanosis, clubbing, full ROM - Routine Skin Exam Present: intact. Absent: cyanosis, erythema - Routine Neurological Exam Present: alert, oriented X3, CN II-XII intact. Absent: sensory deficit, motor deficit - Routine Psychiatric Exam Present: normal affect, normal thought process - Urinary Catheter Management Indwelling Urethral Catheter Cath placed during this visit: yes, but has since been removed by the nurse Urethral indwelling: No Reason for continuing: Decision to DC catheter Insertion date: 01/30/18 Insertion time: 22:39 Removal date: 01/31/18 Removal time: 12:30 Female External Cath placed during this visit: no Assessment and Plan - Assessment (1) Respiratory failure Code(s): J96.90 - Respiratory failure, unspecified, unspecified whether with hypoxia or hypercapnia Status: Acute Plan: resolved (2) CHF (congestive heart failure) Code(s): I50.9 - Heart failure, unspecified Status: Acute (3) Aortic stenosis due to bicuspid aortic valve Code(s): Q23.0 - Congenital stenosis of aortic valve; Q23.1 - Congenital insufficiency of aortic valve Status: Acute (4) COPD (chronic obstructive pulmonary disease) Code(s): J44.9 - Chronic obstructive pulmonary disease, unspecified Status: Acute (5) Supplemental oxygen dependent Code(s): Z99.81 - Dependence on supplemental oxygen Status: Acute - Plan The clinical and ECHO findings were discussed in detail with the patient and 2 sons. Therapeutic options available including TAVR versus SAVR was discussed. I agree that she will maximally benefit from TAVR given her frailty, continuous oxygen demands and significant medical comorbidities. The risks, complications including but not limited to bleeding, infection, stroke, myocardial injury and , and benefits of the procedure were discussed in details and all questions answered. The patient understands the provided information and wishes to discuss it further with her sons and her prior to agreeing to surgical therapy. Their biggest concern is that the procedure will be performed in an outpatient setting and her inability to tolerate any activity in the meantime. The alternative option of an interim balloon valvuloplasty was also discussed, however, it was also mentioned that this could result in progression of her aortic insufficiency. Again, my recommendation would be to proceed with a TAVR operation pending the patient's decision. Thank you allowing me to participate in the care of this patient. (1) Respiratory failure Qualifiers: Chronicity: acute Respiratory failure complication: hypoxia Qualified Code(s ): J96.01 - Acute respiratory failure with hypoxia (2) CHF (congestive heart failure) Qualifiers: Heart failure type: diastolic Heart failure chronicity: acute on chronic Qualified Code(s): I50.33 - Acute on chronic diastolic (congestive) heart failure (4) COPD (chronic obstructive pulmonary disease) Qualifiers: COPD type: emphysema Emphysema type: unspecified Qualified Code(s): J43.9 - Emphysema, unspecified
--- NOTE | 2018-02-03 16:59 | CT ---
EXAM DATE: 02/03/2018 4:37 PM EDT AGE/SEX: 72 years / Female INDICATIONS: Trans aortic valve replacement evaluation. CLINICAL DATA: This is the patient's initial encounter. Patient reports that signs and symptoms have been present for 1 day and indicates a pain score of 0/10. MEDICAL/SURGICAL HISTORY: Chronic obstructive pulmonary disease. Hypertension. Aortic stenosis. C ongestive heart failure. None. RADIATION DOSE: 51.37 CTDI (mGy) ; Patient body habitus COMPARISON: [facility] – [place]ST [place]/O [place]AST, 02/02/2018. . TECHNIQUE: Volumetric scanning was performed using a multi-row detector CT scanner during bolus infu peter of 75 ml Omnipaque 350 (iohexol) nonionic water-soluble contrast as a single exam dose. The da ta was post processed with a variety of visualization algorithms including full volume maximum intens ity projection, multi-planar sliding thin slab reformation, curved planar reformation, and surface re ndering techniques. Using automated exposure control and adjustment of the mA and/or kV according to patient size, radiation dose was kept as low as reasonably achievable to obtain optimal diagnostic q uality images. DICOM format image data is available electronically for review and comparison. FINDINGS: CARDIAC: The coronary system is right dominant. Normal vessels without calcification or stenosis. There are no microcalcifications. There is no pericardial effusion AORTIC ROOT/VALVE: 3 cusps are evident with no calcifications. The aortic root measures 3.3. Mid thoracic aorta measures 2 with no calcifications. THORACIC AORTA: The thoracic aortic root is normal with normal branching of the great vessels. Ther e is no evidence of aneurysm or dissection. ABDOMINAL AORTA: The aorta is normal in caliber without aneurysm or dissection. The renal arteries are patent bilaterally. The proximal celiac and superior mesenteric arteries are patent and normal i n diameter. CELIAC ARTERY: Celiac artery is widely patent. SMA: Superior mesenteric artery is widely patent. RIGHT RENAL ARTERY: Right renal artery is widely patent. LEFT RENAL ARTERY: Left renal artery is widely patent. RIGHT COMMON ILIAC: No evidence of aneurysm, mural thrombus, dissection, mural calcification, or naya nosis. The common femoral measures 10 mm. LEFT COMMON ILIAC: No evidence of aneurysm, mural thrombus, dissection, mural calcification, or sten osis. The common femoral measures 10 mm. THORAX: A small left effusion and left basilar atelectasis is present. There is subsegmental atelect asis in the right base. ABDOMEN: A lap band is present in the expected position. There is a wedge-shaped area of decreased d ensity within the spleen which may reflect a splenic infarct. The gallbladder is absent. The pancreas demonstrates normal contour without evidence of mass or ductal dilatation. The adrenal glands and ki dneys appear normal bilaterally. No hydronephrosis or mass lesions are identified. PELVIS: Examination of the pelvis demonstrates no evidence of free fluid or pelvic mass. No abnormal ly enlarged inguinal or retroperitoneal lymph nodes are present. The bladder is unremarkable. CONCLUSION: Measurements as above Small left effusion and bibasilar atelectasis. Possible splenic infarct measuring 10 mm Electronically signed by: Fabián Guerra MD 02/03/2018 4:58 PM EDT
[2018-02-03] MEDS: Montelukast 10 MG Tablet PO SCH (17:34)
--- NOTE | 2018-02-03 17:54 | P.PNCA ---
Subjective Interval history: Breathing somewhat better No complaints Physical Exam Vital signs: Vital Signs 02/02/18 18:00 02/02/18 18:15 02/02/18 18:30 Temperature Pulse Rate 67 73 78 Respiratory Rate 25 H 30 H 29 H Blood Pressure 161/74 H 166/70 H 172/72 H Pulse Oximetry 98 97 97 02/02/18 18:44 02/02/18 18:45 02/02/18 19:09 Temperature 98.3 F Pulse Rate 82 84 79 Respiratory Rate 29 H 39 H 21 Blood Pressure 175/79 H 160/68 H Pulse Oximetry 96 96 97 02/02/18 20:00 02/02/18 20:09 02/02/18 20:30 Temperature 97.5 F L 98.3 F Pulse Rate 79 79 84 Respiratory Rate 20 18 20 Blood Pressure 179/75 H 179/75 H Pulse Oximetry 96 96 98 02/02/18 21:00 02/02/18 21:09 02/02/18 22:00 Temperature 97.5 F L Pulse Rate 76 79 79 Respiratory Rate 18 17 20 Blood Pressure 160/68 H 160/68 H 179/75 H Pulse Oximetry 96 97 96 02/02/18 22:09 02/02/18 23:09 02/03/18 00:00 Temperature 97.5 F L 97.5 F L Pulse Rate 79 92 H 79 Respiratory Rate 20 14 20 Blood Pressure 179/75 H 170/75 H 179/75 H Pulse Oximetry 96 95 96 02/03/18 00:28 02/03/18 01:00 02/03/18 01:30 Temperature Pulse Rate 63 60 57 L Respiratory Rate 14 17 12 Blood Pressure 145/65 H Pulse Oximetry 99 98 99 02/03/18 02:00 02/03/18 02:30 02/03/18 03:00 Temperature 97.9 F Pulse Rate 56 L 57 L 68 Respiratory Rate 17 14 14 Blood Pressure 148/65 H 146/65 H 167/76 H Pulse Oximetry 99 99 100 02/03/18 03:30 02/03/18 03:37 02/03/18 04:00 Temperature Pulse Rate 69 68 148 H Respiratory Rate 32 H 18 65 H Blood Pressure 170/74 H 175/82 H Pulse Oximetry 99 98 02/03/18 04:08 02/03/18 04:31 02/03/18 05:00 Temperature 98.6 F Pulse Rate 73 71 Respiratory Rate 15 15 Blood Pressure 178/76 H 173/74 H Pulse Oximetry 100 98 98 02/03/18 05:01 02/03/18 05:10 02/03/18 05:30 Temperature Pulse Rate 71 68 78 Respiratory Rate 20 21 43 H Blood Pressure 182/105 H 173/74 H 171/70 H Pulse Oximetry 99 97 96 02/03/18 06:00 02/03/18 06:01 02/03/18 06:08 Temperature Pulse Rate 73 74 72 Respiratory Rate 27 H 38 H 26 H Blood Pressure 175/82 H 204/84 H 188/80 H Pulse Oximetry 98 97 98 02/03/18 06:31 02/03/18 07:00 02/03/18 07:30 Temperature Pulse Rate 80 70 64 Respiratory Rate 23 17 16 Blood Pressure 173/74 H 184/77 H 163/69 H Pulse Oximetry 99 98 98 02/03/18 08:00 02/03/18 08:22 02/03/18 08:30 Temperature 98.4 F Pulse Rate 76 74 72 Respiratory Rate 33 H 22 16 Blood Pressure 182/76 H 189/78 H 189/79 H Pulse Oximetry 98 98 97 02/03/18 08:47 02/03/18 08:54 02/03/18 09:00 Temperature Pulse Rate 70 73 81 Respiratory Rate 24 41 H 42 H Blood Pressure 200/84 H 182/84 H 175/81 H Pulse Oximetry 97 97 98 02/03/18 09:30 02/03/18 10:00 02/03/18 10:01 Temperature Pulse Rate 80 62 62 Respiratory Rate 33 H 19 17 Blood Pressure 175/80 H 152/68 H Pulse Oximetry 98 97 97 02/03/18 10:18 02/03/18 10:30 02/03/18 11:00 Temperature Pulse Rate 61 62 63 Respiratory Rate 18 22 25 H Blood Pressure 152/69 H Pulse Oximetry 98 98 98 02/03/18 11:01 02/03/18 11:30 02/03/18 12:00 Temperature Pulse Rate 64 67 75 Respiratory Rate 35 H 19 30 H Blood Pressure 157/74 H 161/72 H Pulse Oximetry 98 98 97 02/03/18 12:01 02/03/18 12:14 02/03/18 12:31 Temperature Pulse Rate 71 68 75 Respiratory Rate 21 29 H 31 H Blood Pressure 183/80 H 167/76 H 172/95 H Pulse Oximetry 98 97 96 02/03/18 12:49 02/03/18 13:00 02/03/18 13:31 Temperature 98.1 F Pulse Rate 75 67 107 H Respiratory Rate 25 H 30 H 31 H Blood Pressure 183/80 H 178/81 H 167/77 H Pulse Oximetry 97 99 98 02/03/18 14:00 02/03/18 14:30 02/03/18 14:35 Temperature Pulse Rate 64 77 77 Respiratory Rate 27 H 27 H 26 H Blood Pressure 163/75 H 156/109 H 163/73 H Pulse Oximetry 99 99 99 02/03/18 15:00 02/03/18 15:29 02/03/18 16:00 Temperature 98.0 F Pulse Rate 74 76 68 Respiratory Rate 17 30 H 22 Blood Pressure 164/77 H 167/76 H 176/85 H Pulse Oximetry 99 99 98 02/03/18 16:09 02/03/18 16:30 Temperature Pulse Rate 72 63 Respiratory Rate 37 H 48 H Blood Pressure 169/74 H 178/79 H Pulse Oximetry 92 L 99 Intake & Output 02/02/18 02/03/18 02/03/18 18:59 06:59 18:59 Intake Total 822 / 822 650 / 650 Output Total 1500 / 1500 1600 / 1600 Balance -678 / -678 -950 / -950 Weight 109.6 kg Intake: IV 342 / 342 100 / 100 Heparin/D5W 25,000 U/250 mL 25, 42 / 42 000 unit In 250 ml @ Per Protocol IV.CONT TITRATE PRN Rx #:[id number] Unasyn Inj 1,500 MG In NS Inj 300 / 300 100 / 100 100 ML @ 200 mls/hr IV.SIG Q6H [facility] Rx#:[id number] Oral 480 / 480 350 / 350 Other 200 / 200 Output: Urine 1500 / 1500 Urine Amount (Catheter) 1600 / 1600 Female External 1600 / 1600 Narrative: GEN: Obese elderly W/F Awake, alert, no acute distress SKIN: Warm and dry. No visible lesions HEAD: Atraumatic. Normocephalic. EYES: Pupils equal and round. No scleral icterus. No injection or drainage. ENT: No nasal bleeding or discharge. Mucous membranes pink and moist. NECK: Trachea midline. No JVD. CARDIOVASCULAR: Regular rate and rhythm. 3/6 murmur to RSB RESPIRATORY: No accessory muscle use. Few basal crackles. Breath sounds equal bilaterally. GASTROINTESTINAL: Abdomen soft, non-tender, nondistended. Hepatic and splenic margins not palpable. MUSCULOSKELETAL: Extremities without clubbing, cyanosis, but has edema. No obvious deformities. Right radial no hematoma, right brachial no hematoma, neurovascularly intact distally NEUROLOGICAL: Awake and alert. No obvious cranial nerve deficits. Motor grossly within normal limits. Normal speech. PSYCHIATRIC: Appropriate mood and affect. - Urinary Catheter Management Indwelling Urethral Catheter Cath placed during this visit: yes, but has since been removed by the nurse Urethral indwelling: No Reason for continuing: Decision to DC catheter Insertion date: 01/30/18 Insertion time: 22:39 Removal date: 01/31/18 Removal time: 12:30 Female External Cath placed during this visit: no Assessment and Plan - Assessment (1) Abnormal EKG Code(s): R94.31 - Abnormal electrocardiogram [ECG] [EKG] Status: Acute (2) NSTEMI (non-ST elevated myocardial infarction) Code(s): I21.4 - Non-ST elevation (NSTEMI) myocardial infarction Status: Acute (3) Respiratory failure Code(s): J96.90 - Respiratory failure, unspecified, unspecified whether with hypoxia or hypercapnia Status: Acute (4) Chest pain Code(s): R07.9 - Chest pain, unspecified Status: Acute - Plan 1) CP/SOB Secondary to severe No significant CAD 2) Acute respiratory failure due to Acute decompensated heart failure Elevated left sided filling pressures Con't diuresis Bipap as needed 3) Abnormal EKG Due to severe with subendocardial injury 4) CT surgery consulted Needs further diuresis, but will have to be cautious with her Consideration of TAVR due to frailty She will talk it over with her sons May be difficult to send home and do electively, will have to see how she does with diuresis (3) Respiratory failure Qualifiers: Chronicity: acute Respiratory failure complication: hypoxia Qualified Code(s ): J96.01 - Acute respiratory failure with hypoxia (4) Chest pain Qualifiers: Chest pain type: unspecified Qualified Code(s): R07.9 - Chest pain, unspecified
[2018-02-04] MEDS: Ampicillin/Sulbactam Inj 1,500 MG in Sodium Chloride 0.9% Inj 100 ML IV.SIG SCH ×2 (00:38→06:25)
[2018-02-04 05:05] LABS: Baso % (Auto) 0.3 % (0.0-2.0); Hematocrit 28.3 % (35.0-46.0); Hemoglobin 9.4 gm/dL (11.6-15.3); Lymph # (Auto) 0.4 th/mm3 (1.0-4.8); Lymph % (Auto) 3.2 % (9.0-44.0); Mean Corpuscular HGB Conc 33.2 % (32.0-36.0); Mean Corpuscular Hemoglobin 29.9 pg (27.0-34.0); Mean Corpuscular Volume 89.8 fL (80.0-100.0); Mean Platelet Volume 8.1 fL (7.0-11.0); Mono # (Auto) 0.6 th/mm3 (0.0-0.9); Mono % (Auto) 4.2 % (0.0-8.0); Neut # (Auto) 12.7 th/mm3 (1.8-7.7); Neut % (Auto) 92.3 % (16.0-70.0); Platelet Count 213 th/mm3 (150-450); Red Blood Count 3.15 mil/mm3 (4.00-5.30); Red Cell Distribution Width 13.7 % (11.6-17.2); White Blood Count 13.8 th/mm3 (4.0-11.0)
[2018-02-04 05:35] LABS: Calcium 8.6 mg/dL (8.5-10.1); Carbon Dioxide 33.5 meq/L (21.0-32.0); Potassium 3.5 meq/L (3.5-5.1)
[2018-02-04 06:09] LABS: Ovalocytes 1+
[2018-02-04 06:10] LABS: Platelet Estimate Normal (Normal); Platelet Morphology Normal (Normal)
[2018-02-04] MEDS: Chlorhexidine Gluconate 2% 1 Pack (2 Cloths) TOPICAL SCH (06:25)
[2018-02-04] MEDS: Levothyroxine 50 MCG Tablet PO SCH (06:25)
[2018-02-04] MEDS: Ferrous Sulfate 325 MG Tablet PO SCH (09:21)
[2018-02-04] MEDS: Senna/Docusate Sodium 8.6/50 MG Tablet PO SCH ×2 (09:21→21:07)
[2018-02-04] MEDS: Gabapentin 300 MG Capsule PO SCH ×3 (09:21→17:29)
[2018-02-04] MEDS: Carvedilol 6.25 MG Tablet PO SCH ×2 (09:22→21:04)
[2018-02-04] MEDS: FLUoxetine 20 MG Capsule PO SCH ×2 (09:22→21:08)
[2018-02-04] MEDS: Lactobacillus Acidophilus/L. Spores Tablet PO SCH (09:22)
[2018-02-04] MEDS: Dorzolamide 2% Opth Drops 10 ML Bottle EACH EYE SCH ×3 (09:23→17:30)
[2018-02-04] MEDS: Tiotropium Bromide 18 MCG/ACT Inhaler INH SCH (09:23)
[2018-02-04] MEDS: amLODIPine 10 MG Tablet PO SCH (09:23)
[2018-02-04] MEDS: Mometasone Furoate 50 MCG/ACT 17 GM Nasal Spray Bottle EACH NARE SCH (09:23)
[2018-02-04] MEDS: Famotidine PF Inj 20 MG/2 ML Vial IV.PUSH SCH ×2 (09:23→21:08)
[2018-02-04] MEDS: MethylPREDNISolone Sod Succinate Inj 40 MG/ML Vial IV.PUSH SCH ×2 (09:23→21:08)
[2018-02-04] MEDS: Budesonide-Formoterol 160/4.5 MCG 6 GM Inhaler INH SCH ×2 (09:23→21:10)
[2018-02-04] MEDS: Hydrocortisone 2.5% Cream 30 GM Tube TOPICAL SCH ×2 (09:57→21:07)
--- NOTE | 2018-02-04 12:18 | P.PN ---
Subjective Interval history: Feels better. On o2 2 L and sat 96. Good output . will go for TAVR in 2 weeks Physical Exam Vital signs: Vital Signs 02/03/18 12:31 02/03/18 12:49 02/03/18 13:00 Temperature 98.1 F Pulse Rate 75 75 67 Respiratory Rate 31 H 25 H 30 H Blood Pressure 172/95 H 183/80 H 178/81 H Pulse Oximetry 96 97 99 02/03/18 13:31 02/03/18 14:00 02/03/18 14:30 Temperature Pulse Rate 107 H 64 77 Respiratory Rate 31 H 27 H 27 H Blood Pressure 167/77 H 163/75 H 156/109 H Pulse Oximetry 98 99 99 02/03/18 14:35 02/03/18 15:00 02/03/18 15:29 Temperature Pulse Rate 77 74 76 Respiratory Rate 26 H 17 30 H Blood Pressure 163/73 H 164/77 H 167/76 H Pulse Oximetry 99 99 99 02/03/18 16:00 02/03/18 16:09 02/03/18 16:30 Temperature 98.0 F Pulse Rate 68 72 63 Respiratory Rate 22 37 H 48 H Blood Pressure 176/85 H 169/74 H 178/79 H Pulse Oximetry 98 92 L 99 02/03/18 17:00 02/03/18 17:01 02/03/18 17:31 Temperature Pulse Rate 66 65 65 Respiratory Rate 32 H 47 H 38 H Blood Pressure 171/74 H 169/75 H Pulse Oximetry 100 100 99 02/03/18 18:00 02/03/18 18:30 02/03/18 19:00 Temperature Pulse Rate 58 L 67 69 Respiratory Rate 14 30 H 30 H Blood Pressure 167/74 H 176/80 H 173/79 H Pulse Oximetry 99 100 98 02/03/18 19:30 02/03/18 20:00 02/03/18 20:15 Temperature 98.2 F Pulse Rate 69 75 57 L Respiratory Rate 33 H 65 H 31 H Blood Pressure 173/78 H 184/81 H 180/79 H Pulse Oximetry 98 99 99 02/03/18 20:30 02/03/18 20:38 02/03/18 20:45 Temperature Pulse Rate 63 64 63 Respiratory Rate 37 H 33 H 36 H Blood Pressure 184/81 H 167/74 H 176/81 H Pulse Oximetry 99 99 99 02/03/18 21:00 02/03/18 21:15 02/03/18 21:30 Temperature Pulse Rate 62 62 64 Respiratory Rate 43 H 24 26 H Blood Pressure 172/78 H 166/76 H 170/77 H Pulse Oximetry 98 99 100 02/03/18 21:45 02/03/18 22:00 02/03/18 22:15 Temperature Pulse Rate 60 73 60 Respiratory Rate 16 27 H 29 H Blood Pressure 174/78 H 169/65 H 173/77 H Pulse Oximetry 100 100 100 02/03/18 22:30 02/03/18 22:45 02/03/18 22:47 Temperature Pulse Rate 58 L 59 L 75 Respiratory Rate 28 H 24 26 H Blood Pressure 175/79 H 183/81 H 174/78 H Pulse Oximetry 100 99 98 02/03/18 23:00 02/03/18 23:02 02/03/18 23:31 Temperature Pulse Rate 61 64 60 Respiratory Rate 22 28 H 21 Blood Pressure 180/81 H 168/70 H 185/79 H Pulse Oximetry 99 98 97 02/03/18 23:32 02/04/18 00:00 02/04/18 00:01 Temperature 98.5 F Pulse Rate 62 82 111 H Respiratory Rate 27 H 39 H 59 H Blood Pressure 172/74 H 158/66 H Pulse Oximetry 98 99 98 02/04/18 00:31 02/04/18 00:34 02/04/18 01:00 Temperature Pulse Rate 55 L 58 L Respiratory Rate 16 23 Blood Pressure 163/76 H Pulse Oximetry 99 100 99 02/04/18 01:01 02/04/18 01:30 02/04/18 02:00 Temperature Pulse Rate 57 L 61 52 L Respiratory Rate 23 17 12 Blood Pressure 170/73 H 178/97 H 162/71 H Pulse Oximetry 100 99 99 02/04/18 02:30 02/04/18 03:00 02/04/18 03:24 Temperature Pulse Rate 52 L 51 L 75 Respiratory Rate 12 12 20 Blood Pressure 162/72 H 165/72 H Pulse Oximetry 99 100 100 02/04/18 03:31 02/04/18 03:50 02/04/18 04:00 Temperature Pulse Rate 94 H 80 77 Respiratory Rate 35 H 28 H 53 H Blood Pressure 183/112 H 170/72 H 170/81 H Pulse Oximetry 95 99 100 02/04/18 04:06 02/04/18 04:30 02/04/18 05:00 Temperature 98 F Pulse Rate 77 66 61 Respiratory Rate 24 29 H 31 H Blood Pressure 170/81 H 174/76 H 176/79 H Pulse Oximetry 98 99 02/04/18 05:06 02/04/18 05:30 02/04/18 06:00 Temperature 98.2 F Pulse Rate 61 61 63 Respiratory Rate 31 H 34 H 28 H Blood Pressure 176/79 H 176/79 H Pulse Oximetry 99 99 99 02/04/18 06:01 02/04/18 06:06 02/04/18 06:24 Temperature 98 F Pulse Rate 65 63 68 Respiratory Rate 31 H 28 H 30 H Blood Pressure 180/80 H 180/80 H 178/80 H Pulse Oximetry 99 100 02/04/18 08:52 Temperature Pulse Rate 72 Respiratory Rate 24 Blood Pressure Pulse Oximetry 88 L Intake & Output 02/03/18 02/04/18 02/04/18 18:59 06:59 18:59 Intake Total 1300 / 1300 800 / 800 Output Total 2650 / 2650 950 / 950 Balance -1350 / -1350 -150 / -150 Weight 111.2 kg Intake: IV 100 / 100 200 / 200 Unasyn Inj 1,500 MG In NS Inj 100 / 100 200 / 200 100 ML @ 200 mls/hr IV.SIG Q6H [facility] Rx#:[id number] Oral 1200 / 1200 600 / 600 Output: Urine Amount (Catheter) 2650 / 2650 950 / 950 Female External 2650 / 2650 950 / 950 Narrative: GEN: Obese elderly W/F Awake, alert, no acute distress Skin: No visible lesions HEENT: EOM I. Normal mucus membranes. CARDIO: Regular rate and rhythm; prominent systolic murmur LSB. No appreciated edema; normal perfusion LUNGS: Basal crackles and Occ Wheeze. ABD: Soft, nontender, normal bowel sounds NEURO: Grossly normal peripheral motor/sensory function - Urinary Catheter Management Indwelling Urethral Catheter Cath placed during this visit: yes, but has since been removed by the nurse Urethral indwelling: No Reason for continuing: Decision to DC catheter Insertion date: 01/30/18 Insertion time: 22:39 Removal date: 01/31/18 Removal time: 12:30 Female External Cath placed during this visit: no Results - Labs CBC & Chem 7: 02/04/18 04:33 02/04/18 04:33 Laboratory Results - last 24 hr 02/04/18 02/04/18 02/04/18 03:23 03:23 04:33 CBC w Diff Cancelled WBC Cancelled 13.8 H Corrected WBC Cancelled RBC Cancelled 3.15 L Hgb Cancelled 9.4 L Hct Cancelled 28.3 L MCV Cancelled 89.8 MCH Cancelled 29.9 MCHC Cancelled 33.2 RDW Cancelled 13.7 Plt Count Cancelled 213 MPV Cancelled 8.1 Prelim Diff (Auto) Cancelled Slide review pending Immature Gran % (Auto) Cancelled Neut % (Auto) Cancelled 92.3 H Lymph % (Auto) Cancelled 3.2 L [place] % (Auto) Cancelled 4.2 Eos % (Auto) Cancelled 0.0 Baso % (Auto) Cancelled 0.3 Immature Gran # (Auto) Cancelled Neut # (Auto) Cancelled 12.7 H Lymph # (Auto) Cancelled 0.4 L [place] # (Auto) Cancelled 0.6 Eos # (Auto) Cancelled 0.0 Baso # (Auto) Cancelled 0.0 WBC Differential Cancelled . Diff Scan Cancelled Auto diff confirmed Seg Neuts % (Manual) Cancelled Band Neuts % (Manual) Cancelled Lymphocytes % (Manual) Cancelled Atypical Lymphs % (Man) Cancelled Monocytes % (Manual) Cancelled Eosinophils % (Manual) Cancelled Basophils % (Manual) Cancelled Metamyelocytes % (Man) Cancelled Myelocytes % (Man) Cancelled Promyelocytes % (Man) Cancelled Blast Cells % (Manual) Cancelled Plasma Cell % (Manual) Cancelled Other Cells % Cancelled Abs Neuts (Manual) Cancelled Nucleated RBCs/100 WBC Cancelled Differential Comment Cancelled . Hypersegmented Neuts Cancelled Smudge Cells Cancelled Toxic Granulation Cancelled Toxic Vacuolation Cancelled Dohle Bodies Cancelled Platelet Estimate Cancelled Normal Platelet Morphology Cancelled Normal RBC Morphology Cancelled Dimorphic RBCs Cancelled Polychromasia Cancelled Basophilic Stippling Cancelled Spherocytes Cancelled Pappenheimer Bodies Cancelled Sickle Cells Cancelled Target Cells Cancelled Tear Drop Cells Cancelled Ovalocytes Cancelled 1+ H Stomatocytes Cancelled Helmet Cells Cancelled Rendon-[place] Bodies Cancelled [place]ina Cells Cancelled Acanthocytes (Spur) Cancelled Rouleaux Cancelled Keratocytes Cancelled Hematology Comments Cancelled Sodium Cancelled Potassium Cancelled Chloride Cancelled Carbon Dioxide Cancelled Anion Gap Cancelled BUN Cancelled Creatinine Cancelled Estimated GFR Cancelled Random Glucose Cancelled Calcium Cancelled 02/04/18 04:33 CBC w Diff WBC Corrected WBC RBC Hgb Hct MCV MCH MCHC RDW Plt Count MPV Prelim Diff (Auto) Immature Gran % (Auto) Neut % (Auto) Lymph % (Auto) [place] % (Auto) Eos % (Auto) Baso % (Auto) Immature Gran # (Auto) Neut # (Auto) Lymph # (Auto) [place] # (Auto) Eos # (Auto) Baso # (Auto) WBC Differential Diff Scan Seg Neuts % (Manual) Band Neuts % (Manual) Lymphocytes % (Manual) Atypical Lymphs % (Man) Monocytes % (Manual) Eosinophils % (Manual) Basophils % (Manual) Metamyelocytes % (Man) Myelocytes % (Man) Promyelocytes % (Man) Blast Cells % (Manual) Plasma Cell % (Manual) Other Cells % Abs Neuts (Manual) Nucleated RBCs/100 WBC Differential Comment Hypersegmented Neuts Smudge Cells Toxic Granulation Toxic Vacuolation Dohle Bodies Platelet Estimate Platelet Morphology RBC Morphology Dimorphic RBCs Polychromasia Basophilic Stippling Spherocytes Pappenheimer Bodies Sickle Cells Target Cells Tear Drop Cells Ovalocytes Stomatocytes Helmet Cells Rendon-[place] Bodies Bowman Cells Acanthocytes (Spur) Rouleaux Keratocytes Hematology Comments Sodium 137 Potassium 3.5 Chloride 93 L Carbon Dioxide 33.5 H Anion Gap 11 BUN 31 H Creatinine 0.82 Estimated GFR 69 L Random Glucose 152 H Calcium 8.6 Microbiology 01/30/18 23:00 Clean Catch Urine Urine Culture - Final Enterobacter aerogenes - Imaging Impressions Chest CT 02/03/18 00:00 CONCLUSION: Measurements as above Small left effusion and bibasilar atelectasis. Possible splenic infarct measuring 10 mm Assessment and Plan - Assessment (1) Asthma Code(s): J45.909 - Unspecified asthma, uncomplicated Status: Acute (2) CHF (congestive heart failure) Code(s): I50.9 - Heart failure, unspecified Status: Acute (3) Respiratory failure Code(s): J96.90 - Respiratory failure, unspecified, unspecified whether with hypoxia or hypercapnia Status: Acute (4) Chest pain Code(s): R07.9 - Chest pain, unspecified Status: Acute (5) NSTEMI (non-ST elevated myocardial infarction) Code(s): I21.4 - Non-ST elevation (NSTEMI) myocardial infarction Status: Acute (6) Pulmonary hypertension assoc with unclear multi-factorial mechanisms Code(s): I27.29 - Other secondary pulmonary hypertension Status: Acute (7) Aortic valvar stenosis Code(s): I35.0 - Nonrheumatic aortic (valve) stenosis Status: Acute - Plan 1. Will Place on O2 2 L.and wean to RA 2. Use BIPAP at HS and PRN 12/5 CM and D/C Bipap in am. 3. TAVR per CT surgery 4. Duonebs qid. 5. Continue Lasix 40 mg BID 6. Will get OP sleep test. 7. Labs in am 8. Continue antibiotic for 3 days 9. Home soon (2) CHF (congestive heart failure) Qualifiers: Heart failure type: diastolic Heart failure chronicity: acute on chronic Qualified Code(s): I50.33 - Acute on chronic diastolic (congestive) heart failure (3) Respiratory failure Qualifiers: Chronicity: acute Respiratory failure complication: hypoxia Qualified Code(s ): J96.01 - Acute respiratory failure with hypoxia (4) Chest pain Qualifiers: Chest pain type: unspecified Qualified Code(s): R07.9 - Chest pain, unspecified
--- NOTE | 2018-02-04 12:50 | P.PNCA ---
Subjective Interval history: Overnight got up and had a fall No chest pain SOB better Physical Exam Vital signs: Vital Signs 02/03/18 12:49 02/03/18 13:00 02/03/18 13:31 Temperature 98.1 F Pulse Rate 75 67 107 H Respiratory Rate 25 H 30 H 31 H Blood Pressure 183/80 H 178/81 H 167/77 H Pulse Oximetry 97 99 98 02/03/18 14:00 02/03/18 14:30 02/03/18 14:35 Temperature Pulse Rate 64 77 77 Respiratory Rate 27 H 27 H 26 H Blood Pressure 163/75 H 156/109 H 163/73 H Pulse Oximetry 99 99 99 02/03/18 15:00 02/03/18 15:29 02/03/18 16:00 Temperature 98.0 F Pulse Rate 74 76 68 Respiratory Rate 17 30 H 22 Blood Pressure 164/77 H 167/76 H 176/85 H Pulse Oximetry 99 99 98 02/03/18 16:09 02/03/18 16:30 02/03/18 17:00 Temperature Pulse Rate 72 63 66 Respiratory Rate 37 H 48 H 32 H Blood Pressure 169/74 H 178/79 H Pulse Oximetry 92 L 99 100 02/03/18 17:01 02/03/18 17:31 02/03/18 18:00 Temperature Pulse Rate 65 65 58 L Respiratory Rate 47 H 38 H 14 Blood Pressure 171/74 H 169/75 H 167/74 H Pulse Oximetry 100 99 99 02/03/18 18:30 02/03/18 19:00 02/03/18 19:30 Temperature Pulse Rate 67 69 69 Respiratory Rate 30 H 30 H 33 H Blood Pressure 176/80 H 173/79 H 173/78 H Pulse Oximetry 100 98 98 02/03/18 20:00 02/03/18 20:15 02/03/18 20:30 Temperature 98.2 F Pulse Rate 75 57 L 63 Respiratory Rate 65 H 31 H 37 H Blood Pressure 184/81 H 180/79 H 184/81 H Pulse Oximetry 99 99 99 02/03/18 20:38 02/03/18 20:45 02/03/18 21:00 Temperature Pulse Rate 64 63 62 Respiratory Rate 33 H 36 H 43 H Blood Pressure 167/74 H 176/81 H 172/78 H Pulse Oximetry 99 99 98 02/03/18 21:15 02/03/18 21:30 02/03/18 21:45 Temperature Pulse Rate 62 64 60 Respiratory Rate 24 26 H 16 Blood Pressure 166/76 H 170/77 H 174/78 H Pulse Oximetry 99 100 100 02/03/18 22:00 02/03/18 22:15 02/03/18 22:30 Temperature Pulse Rate 73 60 58 L Respiratory Rate 27 H 29 H 28 H Blood Pressure 169/65 H 173/77 H 175/79 H Pulse Oximetry 100 100 100 02/03/18 22:45 02/03/18 22:47 02/03/18 23:00 Temperature Pulse Rate 59 L 75 61 Respiratory Rate 24 26 H 22 Blood Pressure 183/81 H 174/78 H 180/81 H Pulse Oximetry 99 98 99 02/03/18 23:02 02/03/18 23:31 02/03/18 23:32 Temperature Pulse Rate 64 60 62 Respiratory Rate 28 H 21 27 H Blood Pressure 168/70 H 185/79 H 172/74 H Pulse Oximetry 98 97 98 02/04/18 00:00 02/04/18 00:01 02/04/18 00:31 Temperature 98.5 F Pulse Rate 82 111 H 55 L Respiratory Rate 39 H 59 H 16 Blood Pressure 158/66 H 163/76 H Pulse Oximetry 99 98 99 02/04/18 00:34 02/04/18 01:00 02/04/18 01:01 Temperature Pulse Rate 58 L 57 L Respiratory Rate 23 23 Blood Pressure 170/73 H Pulse Oximetry 100 99 100 02/04/18 01:30 02/04/18 02:00 02/04/18 02:30 Temperature Pulse Rate 61 52 L 52 L Respiratory Rate 17 12 12 Blood Pressure 178/97 H 162/71 H 162/72 H Pulse Oximetry 99 99 99 02/04/18 03:00 02/04/18 03:24 02/04/18 03:31 Temperature Pulse Rate 51 L 75 94 H Respiratory Rate 12 20 35 H Blood Pressure 165/72 H 183/112 H Pulse Oximetry 100 100 95 02/04/18 03:50 02/04/18 04:00 02/04/18 04:06 Temperature 98 F Pulse Rate 80 77 77 Respiratory Rate 28 H 53 H 24 Blood Pressure 170/72 H 170/81 H 170/81 H Pulse Oximetry 99 100 02/04/18 04:30 02/04/18 05:00 02/04/18 05:06 Temperature 98.2 F Pulse Rate 66 61 61 Respiratory Rate 29 H 31 H 31 H Blood Pressure 174/76 H 176/79 H 176/79 H Pulse Oximetry 98 99 99 02/04/18 05:30 02/04/18 06:00 02/04/18 06:01 Temperature Pulse Rate 61 63 65 Respiratory Rate 34 H 28 H 31 H Blood Pressure 176/79 H 180/80 H Pulse Oximetry 99 99 99 02/04/18 06:06 02/04/18 06:24 02/04/18 08:52 Temperature 98 F Pulse Rate 63 68 72 Respiratory Rate 28 H 30 H 24 Blood Pressure 180/80 H 178/80 H Pulse Oximetry 100 88 L Intake & Output 02/03/18 02/04/18 02/04/18 18:59 06:59 18:59 Intake Total 1300 / 1300 800 / 800 Output Total 2650 / 2650 950 / 950 Balance -1350 / -1350 -150 / -150 Weight 111.2 kg Intake: IV 100 / 100 200 / 200 Unasyn Inj 1,500 MG In NS Inj 100 / 100 200 / 200 100 ML @ 200 mls/hr IV.SIG Q6H [facility] Rx#:[id number] Oral 1200 / 1200 600 / 600 Output: Urine Amount (Catheter) 2650 / 2650 950 / 950 Female External 2650 / 2650 950 / 950 Narrative: GEN: Obese elderly W/F Awake, alert, no acute distress Skin: No visible lesions HEENT: EOM I. Normal mucus membranes. CARDIO: Regular rate and rhythm; prominent systolic murmur to RSB. No appreciated edema; normal perfusion LUNGS: Basal crackles and Occ Wheeze. ABD: Soft, nontender, normal bowel sounds NEURO: Grossly normal peripheral motor/sensory function - Urinary Catheter Management Indwelling Urethral Catheter Cath placed during this visit: yes, but has since been removed by the nurse Urethral indwelling: No Reason for continuing: Decision to DC catheter Insertion date: 01/30/18 Insertion time: 22:39 Removal date: 01/31/18 Removal time: 12:30 Female External Cath placed during this visit: no Assessment and Plan - Assessment (1) Abnormal EKG Code(s): R94.31 - Abnormal electrocardiogram [ECG] [EKG] Status: Acute (2) NSTEMI (non-ST elevated myocardial infarction) Code(s): I21.4 - Non-ST elevation (NSTEMI) myocardial infarction Status: Acute (3) Respiratory failure Code(s): J96.90 - Respiratory failure, unspecified, unspecified whether with hypoxia or hypercapnia Status: Acute (4) Chest pain Code(s): R07.9 - Chest pain, unspecified Status: Acute - Plan 1) CP/SOB Secondary to severe No significant CAD 2) Acute respiratory failure due to Acute decompensated heart failure Elevated left sided filling pressures Con't diuresis Bipap as needed 3) Abnormal EKG Due to severe with subendocardial injury 4) CT surgery consulted Needs further diuresis, but will have to be cautious with her Consideration of TAVR due to frailty She will talk it over with her sons May be difficult to send home and do electively, will have to see how she does with diuresis (3) Respiratory failure Qualifiers: Chronicity: acute Respiratory failure complication: hypoxia Qualified Code(s ): J96.01 - Acute respiratory failure with hypoxia (4) Chest pain Qualifiers: Chest pain type: unspecified Qualified Code(s): R07.9 - Chest pain, unspecified
--- NOTE | 2018-02-04 13:44 | P.PNIM ---
Subjective Interval history: Patient reports she is feeling better. Breathing more comfortably. No chest pain. Physical Exam Vital signs: Vital Signs 02/03/18 14:00 02/03/18 14:30 02/03/18 14:35 Temperature Pulse Rate 64 77 77 Respiratory Rate 27 H 27 H 26 H Blood Pressure 163/75 H 156/109 H 163/73 H Pulse Oximetry 99 99 99 02/03/18 15:00 02/03/18 15:29 02/03/18 16:00 Temperature 98.0 F Pulse Rate 74 76 68 Respiratory Rate 17 30 H 22 Blood Pressure 164/77 H 167/76 H 176/85 H Pulse Oximetry 99 99 98 02/03/18 16:09 02/03/18 16:30 02/03/18 17:00 Temperature Pulse Rate 72 63 66 Respiratory Rate 37 H 48 H 32 H Blood Pressure 169/74 H 178/79 H Pulse Oximetry 92 L 99 100 02/03/18 17:01 02/03/18 17:31 02/03/18 18:00 Temperature Pulse Rate 65 65 58 L Respiratory Rate 47 H 38 H 14 Blood Pressure 171/74 H 169/75 H 167/74 H Pulse Oximetry 100 99 99 02/03/18 18:30 02/03/18 19:00 02/03/18 19:30 Temperature Pulse Rate 67 69 69 Respiratory Rate 30 H 30 H 33 H Blood Pressure 176/80 H 173/79 H 173/78 H Pulse Oximetry 100 98 98 02/03/18 20:00 02/03/18 20:15 02/03/18 20:30 Temperature 98.2 F Pulse Rate 75 57 L 63 Respiratory Rate 65 H 31 H 37 H Blood Pressure 184/81 H 180/79 H 184/81 H Pulse Oximetry 99 99 99 02/03/18 20:38 02/03/18 20:45 02/03/18 21:00 Temperature Pulse Rate 64 63 62 Respiratory Rate 33 H 36 H 43 H Blood Pressure 167/74 H 176/81 H 172/78 H Pulse Oximetry 99 99 98 02/03/18 21:15 02/03/18 21:30 02/03/18 21:45 Temperature Pulse Rate 62 64 60 Respiratory Rate 24 26 H 16 Blood Pressure 166/76 H 170/77 H 174/78 H Pulse Oximetry 99 100 100 02/03/18 22:00 02/03/18 22:15 09/06/18 22:30 Temperature Pulse Rate 73 60 58 L Respiratory Rate 27 H 29 H 28 H Blood Pressure 169/65 H 173/77 H 175/79 H Pulse Oximetry 100 100 100 02/03/18 22:45 02/03/18 22:47 02/03/18 23:00 Temperature Pulse Rate 59 L 75 61 Respiratory Rate 24 26 H 22 Blood Pressure 183/81 H 174/78 H 180/81 H Pulse Oximetry 99 98 99 02/03/18 23:02 02/03/18 23:31 02/03/18 23:32 Temperature Pulse Rate 64 60 62 Respiratory Rate 28 H 21 27 H Blood Pressure 168/70 H 185/79 H 172/74 H Pulse Oximetry 98 97 98 02/04/18 00:00 02/04/18 00:01 02/04/18 00:31 Temperature 98.5 F Pulse Rate 82 111 H 55 L Respiratory Rate 39 H 59 H 16 Blood Pressure 158/66 H 163/76 H Pulse Oximetry 99 98 99 02/04/18 00:34 02/04/18 01:00 02/04/18 01:01 Temperature Pulse Rate 58 L 57 L Respiratory Rate 23 23 Blood Pressure 170/73 H Pulse Oximetry 100 99 100 02/04/18 01:30 02/04/18 02:00 02/04/18 02:30 Temperature Pulse Rate 61 52 L 52 L Respiratory Rate 17 12 12 Blood Pressure 178/97 H 162/71 H 162/72 H Pulse Oximetry 99 99 99 02/04/18 03:00 02/04/18 03:24 02/04/18 03:31 Temperature Pulse Rate 51 L 75 94 H Respiratory Rate 12 20 35 H Blood Pressure 165/72 H 183/112 H Pulse Oximetry 100 100 95 02/04/18 03:50 02/04/18 04:00 02/04/18 04:06 Temperature 98 F Pulse Rate 80 77 77 Respiratory Rate 28 H 53 H 24 Blood Pressure 170/72 H 170/81 H 170/81 H Pulse Oximetry 99 100 02/04/18 04:30 02/04/18 05:00 02/04/18 05:06 Temperature 98.2 F Pulse Rate 66 61 61 Respiratory Rate 29 H 31 H 31 H Blood Pressure 174/76 H 176/79 H 176/79 H Pulse Oximetry 98 99 99 02/04/18 05:30 02/04/18 06:00 02/04/18 06:01 Temperature Pulse Rate 61 63 65 Respiratory Rate 34 H 28 H 31 H Blood Pressure 176/79 H 180/80 H Pulse Oximetry 99 99 99 02/04/18 06:06 02/04/18 06:24 02/04/18 08:52 Temperature 98 F Pulse Rate 63 68 72 Respiratory Rate 28 H 30 H 24 Blood Pressure 180/80 H 178/80 H Pulse Oximetry 100 88 L Intake & Output 02/03/18 02/04/18 02/04/18 18:59 06:59 18:59 Intake Total 1300 / 1300 800 / 800 Output Total 2650 / 2650 950 / 950 Balance -1350 / -1350 -150 / -150 Weight 111.2 kg Intake: IV 100 / 100 200 / 200 Unasyn Inj 1,500 MG In NS Inj 100 / 100 200 / 200 100 ML @ 200 mls/hr IV.SIG Q6H SLOANE Rx#:[id number] Oral 1200 / 1200 600 / 600 Output: Urine Amount (Catheter) 2650 / 2650 950 / 950 Female External 2650 / 2650 950 / 950 Narrative: GENERAL: This is a well-nourished, well-developed patient, in no apparent distress. CARDIOVASCULAR: Normal rate and regular rhythm. 3 out of 6 COLLINS murmur best heard over the right sternal border. RESPIRATORY: Good respiratory efforts. Breath sounds equal and clear to auscultation bilaterally. GASTROINTESTINAL: Abdomen soft, non-tender, non-distended. Normal active bowel sounds MUSCULOSKELETAL: Extremities without cyanosis, or edema. NEURO: Alert & Oriented x4 to person, place, time, situation. Moves all ext x4 PSYCH: Appropriate mood and affect. - Urinary Catheter Management Indwelling Urethral Catheter Cath placed during this visit: yes, but has since been removed by the nurse Urethral indwelling: No Reason for continuing: Decision to DC catheter Insertion date: 01/30/18 Insertion time: 22:39 Removal date: 01/31/18 Removal time: 12:30 Female External Cath placed during this visit: no Results - Labs CBC & Chem 7: 02/04/18 04:33 02/04/18 04:33 Laboratory Results - last 24 hr 02/04/18 02/04/18 02/04/18 03:23 03:23 04:33 CBC w Diff Cancelled WBC Cancelled 13.8 H Corrected WBC Cancelled RBC Cancelled 3.15 L Hgb Cancelled 9.4 L Hct Cancelled 28.3 L MCV Cancelled 89.8 MCH Cancelled 29.9 MCHC Cancelled 33.2 RDW Cancelled 13.7 Plt Count Cancelled 213 MPV Cancelled 8.1 Prelim Diff (Auto) Cancelled Slide review pending Immature Gran % (Auto) Cancelled Neut % (Auto) Cancelled 92.3 H Lymph % (Auto) Cancelled 3.2 L [place] % (Auto) Cancelled 4.2 Eos % (Auto) Cancelled 0.0 Baso % (Auto) Cancelled 0.3 Immature Gran # (Auto) Cancelled Neut # (Auto) Cancelled 12.7 H Lymph # (Auto) Cancelled 0.4 L [place] # (Auto) Cancelled 0.6 Eos # (Auto) Cancelled 0.0 Baso # (Auto) Cancelled 0.0 WBC Differential Cancelled . Diff Scan Cancelled Auto diff confirmed Seg Neuts % (Manual) Cancelled Band Neuts % (Manual) Cancelled Lymphocytes % (Manual) Cancelled Atypical Lymphs % (Man) Cancelled Monocytes % (Manual) Cancelled Eosinophils % (Manual) Cancelled Basophils % (Manual) Cancelled Metamyelocytes % (Man) Cancelled Myelocytes % (Man) Cancelled Promyelocytes % (Man) Cancelled Blast Cells % (Manual) Cancelled Plasma Cell % (Manual) Cancelled Other Cells % Cancelled Abs Neuts (Manual) Cancelled Nucleated RBCs/100 WBC Cancelled Differential Comment Cancelled . Hypersegmented Neuts Cancelled Smudge Cells Cancelled Toxic Granulation Cancelled Toxic Vacuolation Cancelled Dohle Bodies Cancelled Platelet Estimate Cancelled Normal Platelet Morphology Cancelled Normal RBC Morphology Cancelled Dimorphic RBCs Cancelled Polychromasia Cancelled Basophilic Stippling Cancelled Spherocytes Cancelled Pappenheimer Bodies Cancelled Sickle Cells Cancelled Target Cells Cancelled Tear Drop Cells Cancelled Ovalocytes Cancelled 1+ H Stomatocytes Cancelled Helmet Cells Cancelled [place] Bodies Cancelled [place] Cells Cancelled Acanthocytes (Spur) Cancelled Rouleaux Cancelled Keratocytes Cancelled Hematology Comments Cancelled Sodium Cancelled Potassium Cancelled Chloride Cancelled Carbon Dioxide Cancelled Anion Gap Cancelled BUN Cancelled Creatinine Cancelled Estimated GFR Cancelled Random Glucose Cancelled Calcium Cancelled 02/04/18 04:33 CBC w Diff WBC Corrected WBC RBC Hgb Hct MCV MCH MCHC RDW Plt Count MPV Prelim Diff (Auto) Immature Gran % (Auto) Neut % (Auto) Lymph % (Auto) [place] % (Auto) Eos % (Auto) Baso % (Auto) Immature Gran # (Auto) Neut # (Auto) Lymph # (Auto) [place] # (Auto) Eos # (Auto) Baso # (Auto) WBC Differential Diff Scan Seg Neuts % (Manual) Band Neuts % (Manual) Lymphocytes % (Manual) Atypical Lymphs % (Man) Monocytes % (Manual) Eosinophils % (Manual) Basophils % (Manual) Metamyelocytes % (Man) Myelocytes % (Man) Promyelocytes % (Man) Blast Cells % (Manual) Plasma Cell % (Manual) Other Cells % Abs Neuts (Manual) Nucleated RBCs/100 WBC Differential Comment Hypersegmented Neuts Smudge Cells Toxic Granulation Toxic Vacuolation Dohle Bodies Platelet Estimate Platelet Morphology RBC Morphology Dimorphic RBCs Polychromasia Basophilic Stippling Spherocytes Pappenheimer Bodies Sickle Cells Target Cells Tear Drop Cells Ovalocytes Stomatocytes Helmet Cells [place] Bodies [place] Cells Acanthocytes (Spur) Rouleaux Keratocytes Hematology Comments Sodium 137 Potassium 3.5 Chloride 93 L Carbon Dioxide 33.5 H Anion Gap 11 BUN 31 H Creatinine 0.82 Estimated GFR 69 L Random Glucose 152 H Calcium 8.6 Microbiology 01/30/18 23:00 Clean Catch Urine Urine Culture - Final Enterobacter aerogenes - Imaging Impressions Chest CT 02/03/18 00:00 CONCLUSION: Measurements as above Small left effusion and bibasilar atelectasis. Possible splenic infarct measuring 10 mm Assessment and Plan - Plan 72 yo F with PMH of COPD who was admitted to [facility] ED with chest pain and shortness of breath. Patient found to have lethargy and was intubated for airway protection; extubated 01/31. Patient found to have troponin elevations and EKG on arrival with AVR and V1 ST changes which normalized after intubation. Patient evaluated by Cardiology; concern for multi-vessel disease vs demand ischemia. Patient currently medically managed for possible ACS. Patient had worsening of respiratory status so was placed on BIPAP, steroids, and given additional diuresis. Cardiology considering TAVR. Chest pain and acute respiratory failure: Secondary to aortic stenosis. -Appreciate cardiology following. Status post heart cath. Severe aortic stenosis. No significant CAD. -CT surgery following and planning for TAVR. Patient states she is agreeable. Continue aspirin, beta-jorge, and statin. -Continue diuresis with Lasix -Continue Norvasc for BP -Pulmonology following -Continue supplemental oxygen and breathing treatments. Enterobacter UTI. Recent suprapubic pain before hospitalization and multiple recent UTI's. -Monitor culture -Continue Augmentin to complete the course of treatment. Anxiety -Xanax scheduled and as needed Iron deficiency anemia -Ferrous Sulfate Depression -Fluoxetine DVT GI prophylaxis -SCDs -Heparin -Pepcid Discharge Planning: Okay to downgrade to [facility] or [facility].
[2018-02-04] MEDS: Metoprolol Inj 5 MG/5 ML Vial IV.PUSH PRN (17:29)
[2018-02-04] MEDS: Montelukast 10 MG Tablet PO SCH (18:42)
[2018-02-04] MEDS: Amoxicillin/Clavulanate 875/125 MG Tablet PO SCH (21:04)
[2018-02-05 05:50] LABS: Hematocrit 28.6 % (35.0-46.0); Hemoglobin 9.5 gm/dL (11.6-15.3); Mean Corpuscular HGB Conc 33.2 % (32.0-36.0); Mean Corpuscular Hemoglobin 30.1 pg (27.0-34.0); Mean Corpuscular Volume 90.7 fL (80.0-100.0); Mean Platelet Volume 7.9 fL (7.0-11.0); Platelet Count 210 th/mm3 (150-450); Red Blood Count 3.16 mil/mm3 (4.00-5.30); Red Cell Distribution Width 13.6 % (11.6-17.2); White Blood Count 12.3 th/mm3 (4.0-11.0)
[2018-02-05] MEDS: Levothyroxine 50 MCG Tablet PO SCH (06:21)
[2018-02-05 06:25] LABS: Calcium 8.4 mg/dL (8.5-10.1); Carbon Dioxide 37.1 meq/L (21.0-32.0); Potassium 3.6 meq/L (3.5-5.1)
[2018-02-05] MEDS: amLODIPine 10 MG Tablet PO SCH (09:12)
[2018-02-05] MEDS: Lactobacillus Acidophilus/L. Spores Tablet PO SCH (09:12)
[2018-02-05] MEDS: Ferrous Sulfate 325 MG Tablet PO SCH (09:13)
[2018-02-05] MEDS: Gabapentin 300 MG Capsule PO SCH ×3 (09:14→17:57)
[2018-02-05] MEDS: FLUoxetine 20 MG Capsule PO SCH ×2 (09:14→21:05)
[2018-02-05] MEDS: Carvedilol 6.25 MG Tablet PO SCH ×2 (09:14→21:06)
[2018-02-05] MEDS: MethylPREDNISolone Sod Succinate Inj 40 MG/ML Vial IV.PUSH SCH ×2 (09:14→21:06)
[2018-02-05] MEDS: Famotidine PF Inj 20 MG/2 ML Vial IV.PUSH SCH ×2 (09:14→21:06)
[2018-02-05] MEDS: Senna/Docusate Sodium 8.6/50 MG Tablet PO SCH ×2 (09:45→21:06)
[2018-02-05] MEDS: Amoxicillin/Clavulanate 875/125 MG Tablet PO SCH ×2 (10:10→21:06)
[2018-02-05] MEDS: Budesonide-Formoterol 160/4.5 MCG 6 GM Inhaler INH SCH ×2 (10:11→21:07)
[2018-02-05] MEDS: Dorzolamide 2% Opth Drops 10 ML Bottle EACH EYE SCH ×3 (10:12→18:00)
[2018-02-05] MEDS: Mometasone Furoate 50 MCG/ACT 17 GM Nasal Spray Bottle EACH NARE SCH (10:12)
[2018-02-05] MEDS: Hydrocortisone 2.5% Cream 30 GM Tube TOPICAL SCH ×2 (10:12→21:08)
[2018-02-05] MEDS: Tiotropium Bromide 18 MCG/ACT Inhaler INH SCH (10:12)
--- NOTE | 2018-02-05 12:17 | P.PN ---
Subjective Interval history: seen with supportive at bedside patient up and ambualted feeling better telemetry in Physical Exam Vital signs: Vital Signs 02/04/18 13:00 02/04/18 14:00 02/04/18 14:31 Temperature Pulse Rate 65 65 69 Respiratory Rate 24 22 50 H Blood Pressure 168/74 H 175/77 H 157/81 H Pulse Oximetry 95 95 93 L 02/04/18 15:00 02/04/18 15:01 02/04/18 15:06 Temperature Pulse Rate 66 63 66 Respiratory Rate 30 H 30 H 20 Blood Pressure 180/79 H 180/79 H Pulse Oximetry 100 100 100 02/04/18 15:30 02/04/18 16:00 02/04/18 16:30 Temperature Pulse Rate 68 63 66 Respiratory Rate 33 H 35 H 41 H Blood Pressure 178/81 H 183/80 H 188/84 H Pulse Oximetry 98 99 98 02/04/18 17:03 02/04/18 17:04 02/04/18 17:09 Temperature Pulse Rate 79 81 77 Respiratory Rate 32 H 25 H 12 Blood Pressure 203/87 H Pulse Oximetry 86 L 93 L 02/04/18 17:11 02/04/18 17:30 02/04/18 18:00 Temperature Pulse Rate 77 78 61 Respiratory Rate 16 46 H 42 H Blood Pressure 194/85 H 175/81 H Pulse Oximetry 95 93 L 99 02/04/18 18:01 02/04/18 19:00 02/04/18 19:30 Temperature Pulse Rate 62 74 72 Respiratory Rate 51 H 20 20 Blood Pressure 179/79 H 178/80 H 178/83 H Pulse Oximetry 99 94 L 87 L 02/04/18 20:00 02/04/18 20:31 02/04/18 21:00 Temperature 99.1 F Pulse Rate 60 69 66 Respiratory Rate 40 H 33 H 23 Blood Pressure 177/79 H 171/77 H 179/80 H Pulse Oximetry 97 98 99 02/04/18 21:30 02/04/18 21:39 02/04/18 21:58 Temperature Pulse Rate 102 H 107 H 63 Respiratory Rate 20 20 19 Blood Pressure 200/90 H 184/81 H 181/81 H Pulse Oximetry 92 L 91 L 98 02/04/18 22:00 02/04/18 22:30 02/05/18 00:00 Temperature 99.3 F 98.2 F Pulse Rate 63 64 54 L Respiratory Rate 17 22 18 Blood Pressure 183/82 H 180/84 H 168/76 H Pulse Oximetry 99 98 96 02/05/18 01:19 02/05/18 04:00 02/05/18 07:06 Temperature 98.3 F 98.7 F Pulse Rate 75 68 Respiratory Rate 20 18 Blood Pressure 170/74 H 147/66 H Pulse Oximetry 96 95 99 02/05/18 08:00 02/05/18 09:00 02/05/18 10:00 Temperature 98.7 F Pulse Rate 64 68 68 Respiratory Rate 18 Blood Pressure 147/66 H Pulse Oximetry 99 02/05/18 10:15 02/05/18 11:00 Temperature Pulse Rate 65 Respiratory Rate Blood Pressure Pulse Oximetry 94 L Intake & Output 02/04/18 02/05/18 02/05/18 18:59 06:59 18:59 Intake Total 680 / 680 240 / 240 Output Total 2650 / 2650 1500 / 1500 Balance -1970 / -1970 -1260 / -1260 Weight 110.8 kg Intake: Oral 680 / 680 240 / 240 Output: Urine 1500 / 1500 Urine Amount (Catheter) 2650 / 2650 Female External 2650 / 2650 Other: Date of Last Bowel Movement 02/04/18 02/04/18 # Bowel Movements 1 Narrative: GENERAL: This is a well-nourished, well-developed patient, in no apparent distress. no acute distress CARDIOVASCULAR: Normal rate and regular rhythm. 3 out of 6 COLLINS murmur best heard over the right sternal border. RESPIRATORY: Good respiratory efforts. minimal fine rales bases GASTROINTESTINAL: Abdomen soft, non-tender, non-distended. Normal active bowel sounds MUSCULOSKELETAL: Extremities without cyanosis, - edema.- per aptient improved NEURO: Alert & Oriented x4 to person, place, time, situation. Moves all ext x4 PSYCH: Appropriate mood and affect. - Urinary Catheter Management Indwelling Urethral Catheter Cath placed during this visit: yes, but has since been removed by the nurse Urethral indwelling: No Reason for continuing: Decision to DC catheter Insertion date: 01/30/18 Insertion time: 22:39 Removal date: 01/31/18 Removal time: 12:30 Female External Cath placed during this visit: no Results - Labs CBC & Chem 7: 02/05/18 04:53 02/05/18 04:53 Laboratory Results - last 24 hr 02/05/18 02/05/18 04:53 04:53 WBC 12.3 H RBC 3.16 L Hgb 9.5 L Hct 28.6 L MCV 90.7 MCH 30.1 MCHC 33.2 RDW 13.6 Plt Count 210 MPV 7.9 Sodium 138 Potassium 3.6 Chloride 94 L Carbon Dioxide 37.1 H Anion Gap 7 BUN 28 H Creatinine 0.83 Estimated GFR 68 L Random Glucose 150 H Calcium 8.4 L Assessment and Plan - Plan 72 yo F with PMH of COPD who was admitted to [place] ED with chest pain and shortness of breath. Patient found to have lethargy and was intubated for airway protection; extubated 01/31. Patient found to have troponin elevations and EKG on arrival with AVR and V1 ST changes which normalized after intubation. Patient evaluated by Cardiology; concern for multi-vessel disease vs demand ischemia. Patient currently medically managed for possible ACS. Patient had worsening of respiratory status so was placed on BIPAP, steroids, and given additional diuresis. Cardiology considering TAVR. Chest pain and acute respiratory failure: Secondary to aortic stenosis. -Appreciate cardiology following. Status post heart cath. Severe aortic stenosis. No significant CAD. -CT surgery following and planning for TAVR. Patient states she is agreeable. early next week Continue aspirin, beta-jorge, and statin. -Continue diuresis with Lasix -Continue Norvasc for BP -Pulmonology following -Continue supplemental oxygen and breathing treatments. Enterobacter UTI. Recent suprapubic pain before hospitalization and multiple recent UTI's. -Monitor culture -Continue Augmentin to complete the course of treatment. Anxiety -Xanax scheduled and as needed Iron deficiency anemia -Ferrous Sulfate Depression -Fluoxetine DVT GI prophylaxis -SCDs -Heparin -Pepcid d/w patient and out of bed to [facility]
--- NOTE | 2018-02-05 14:50 | P.PN ---
Subjective Interval history: Alert and on o2 2 L. No chest pain or SOB at rest. Will go for TAVR early next week Physical Exam Vital signs: Vital Signs 02/04/18 15:00 02/04/18 15:01 02/04/18 15:06 Temperature Pulse Rate 66 63 66 Respiratory Rate 30 H 30 H 20 Blood Pressure 180/79 H 180/79 H Pulse Oximetry 100 100 100 02/04/18 15:30 02/04/18 16:00 02/04/18 16:30 Temperature Pulse Rate 68 63 66 Respiratory Rate 33 H 35 H 41 H Blood Pressure 178/81 H 183/80 H 188/84 H Pulse Oximetry 98 99 98 02/04/18 17:03 02/04/18 17:04 02/04/18 17:09 Temperature Pulse Rate 79 81 77 Respiratory Rate 32 H 25 H 12 Blood Pressure 203/87 H Pulse Oximetry 86 L 93 L 02/04/18 17:11 02/04/18 17:30 02/04/18 18:00 Temperature Pulse Rate 77 78 61 Respiratory Rate 16 46 H 42 H Blood Pressure 194/85 H 175/81 H Pulse Oximetry 95 93 L 99 02/04/18 18:01 02/04/18 19:00 02/04/18 19:30 Temperature Pulse Rate 62 74 72 Respiratory Rate 51 H 20 20 Blood Pressure 179/79 H 178/80 H 178/83 H Pulse Oximetry 99 94 L 87 L 02/04/18 20:00 02/04/18 20:31 02/04/18 21:00 Temperature 99.1 F Pulse Rate 60 69 66 Respiratory Rate 40 H 33 H 23 Blood Pressure 177/79 H 171/77 H 179/80 H Pulse Oximetry 97 98 99 02/04/18 21:30 02/04/18 21:39 02/04/18 21:58 Temperature Pulse Rate 102 H 107 H 63 Respiratory Rate 20 20 19 Blood Pressure 200/90 H 184/81 H 181/81 H Pulse Oximetry 92 L 91 L 98 02/04/18 22:00 02/04/18 22:30 02/05/18 00:00 Temperature 99.3 F 98.2 F Pulse Rate 63 64 54 L Respiratory Rate 17 22 18 Blood Pressure 183/82 H 180/84 H 168/76 H Pulse Oximetry 99 98 96 02/05/18 01:19 02/05/18 04:00 02/05/18 07:06 Temperature 98.3 F 98.7 F Pulse Rate 75 68 Respiratory Rate 20 18 Blood Pressure 170/74 H 147/66 H Pulse Oximetry 96 95 99 02/05/18 08:00 02/05/18 09:00 02/05/18 10:00 Temperature 98.7 F Pulse Rate 64 68 68 Respiratory Rate 18 Blood Pressure 147/66 H Pulse Oximetry 99 02/05/18 10:15 02/05/18 11:00 Temperature Pulse Rate 65 Respiratory Rate Blood Pressure Pulse Oximetry 94 L Intake & Output 02/04/18 02/05/18 02/05/18 18:59 06:59 18:59 Intake Total 680 / 680 240 / 240 Output Total 2650 / 2650 1500 / 1500 Balance -1970 / -1970 -1260 / -1260 Weight 110.8 kg Intake: Oral 680 / 680 240 / 240 Output: Urine 1500 / 1500 Urine Amount (Catheter) 2650 / 2650 Female External 2650 / 2650 Other: Date of Last Bowel Movement 02/04/18 02/04/18 02/04/18 # Bowel Movements 1 Narrative: GENERAL: This is a well-nourished, well-developed patient, in no acute distress CARDIOVASCULAR: Normal rate and regular rhythm. 3 / 6 COLLINS murmur best heard over the right sternal border. RESPIRATORY: Good respiratory efforts. Bilateral fine rales at bases GASTROINTESTINAL: Abdomen soft, non-tender, non-distended. Normal active bowel sounds MUSCULOSKELETAL: Extremities without cyanosis, - edema.- 1 + NEURO: Alert & Oriented x4 to person, place, time, situation. Moves all ext x4 PSYCH: Appropriate mood and affect. - Urinary Catheter Management Indwelling Urethral Catheter Cath placed during this visit: yes, but has since been removed by the nurse Urethral indwelling: No Reason for continuing: Decision to DC catheter Insertion date: 01/30/18 Insertion time: 22:39 Removal date: 01/31/18 Removal time: 12:30 Female External Cath placed during this visit: no Results - Labs CBC & Chem 7: 02/05/18 04:53 02/05/18 04:53 Laboratory Results - last 24 hr 02/05/18 02/05/18 04:53 04:53 WBC 12.3 H RBC 3.16 L Hgb 9.5 L Hct 28.6 L MCV 90.7 MCH 30.1 MCHC 33.2 RDW 13.6 Plt Count 210 MPV 7.9 Sodium 138 Potassium 3.6 Chloride 94 L Carbon Dioxide 37.1 H Anion Gap 7 BUN 28 H Creatinine 0.83 Estimated GFR 68 L Random Glucose 150 H Calcium 8.4 L Assessment and Plan - Assessment (1) Asthma Code(s): J45.909 - Unspecified asthma, uncomplicated Status: Acute (2) CHF (congestive heart failure) Code(s): I50.9 - Heart failure, unspecified Status: Acute (3) Respiratory failure Code(s): J96.90 - Respiratory failure, unspecified, unspecified whether with hypoxia or hypercapnia Status: Acute (4) Chest pain Code(s): R07.9 - Chest pain, unspecified Status: Acute (5) NSTEMI (non-ST elevated myocardial infarction) Code(s): I21.4 - Non-ST elevation (NSTEMI) myocardial infarction Status: Acute (6) Pulmonary hypertension assoc with unclear multi-factorial mechanisms Code(s): I27.29 - Other secondary pulmonary hypertension Status: Acute (7) Aortic valvar stenosis Code(s): I35.0 - Nonrheumatic aortic (valve) stenosis Status: Acute - Plan 1. Will cont on O2 2 L.and wean to RA 2. IS at bedside qid 3. TAVR per CT surgery 4. Duonebs qid. 5. Continue Lasix 40 mg BID 6. Will get OP sleep test. 7. CXR BMP on wednesday (2) CHF (congestive heart failure) Qualifiers: Heart failure type: diastolic Heart failure chronicity: acute on chronic Qualified Code(s): I50.33 - Acute on chronic diastolic (congestive) heart failure (3) Respiratory failure Qualifiers: Chronicity: acute Respiratory failure complication: hypoxia Qualified Code(s ): J96.01 - Acute respiratory failure with hypoxia (4) Chest pain Qualifiers: Chest pain type: unspecified Qualified Code(s): R07.9 - Chest pain, unspecified
[2018-02-05] MEDS: Montelukast 10 MG Tablet PO SCH (19:36)
[2018-02-06] MEDS: Levothyroxine 50 MCG Tablet PO SCH (06:18)
[2018-02-06] MEDS: amLODIPine 10 MG Tablet PO SCH (09:56)
[2018-02-06] MEDS: Amoxicillin/Clavulanate 875/125 MG Tablet PO SCH ×2 (09:56→21:00)
[2018-02-06] MEDS: Gabapentin 300 MG Capsule PO SCH ×3 (09:57→18:15)
[2018-02-06] MEDS: FLUoxetine 20 MG Capsule PO SCH ×2 (09:57→21:00)
[2018-02-06] MEDS: Carvedilol 6.25 MG Tablet PO SCH ×2 (09:57→21:00)
[2018-02-06] MEDS: Ferrous Sulfate 325 MG Tablet PO SCH (09:57)
[2018-02-06] MEDS: MethylPREDNISolone Sod Succinate Inj 40 MG/ML Vial IV.PUSH SCH ×2 (09:58→20:57)
[2018-02-06] MEDS: Famotidine PF Inj 20 MG/2 ML Vial IV.PUSH SCH ×2 (09:58→20:57)
[2018-02-06] MEDS: Lactobacillus Acidophilus/L. Spores Tablet PO SCH (09:58)
[2018-02-06] MEDS: Senna/Docusate Sodium 8.6/50 MG Tablet PO SCH ×2 (09:58→20:59)
[2018-02-06] MEDS: Budesonide-Formoterol 160/4.5 MCG 6 GM Inhaler INH SCH ×2 (09:59→21:02)
[2018-02-06] MEDS: Mometasone Furoate 50 MCG/ACT 17 GM Nasal Spray Bottle EACH NARE SCH (09:59)
[2018-02-06] MEDS: Dorzolamide 2% Opth Drops 10 ML Bottle EACH EYE SCH ×3 (09:59→18:16)
[2018-02-06] MEDS: Hydrocortisone 2.5% Cream 30 GM Tube TOPICAL SCH ×2 (10:00→21:03)
[2018-02-06] MEDS: Tiotropium Bromide 18 MCG/ACT Inhaler INH SCH (10:00)
--- NOTE | 2018-02-06 10:12 | P.PN ---
Subjective Interval history: feeling better no complains diuresing well Physical Exam Vital signs: Vital Signs 02/05/18 10:15 02/05/18 11:00 02/05/18 12:00 Temperature 98.7 F Pulse Rate 65 60 Respiratory Rate 20 Blood Pressure 149/56 H Pulse Oximetry 94 L 94 L 02/05/18 13:00 02/05/18 14:00 02/05/18 15:00 Temperature Pulse Rate 72 60 58 L Respiratory Rate Blood Pressure Pulse Oximetry 02/05/18 16:00 02/05/18 17:00 02/05/18 18:00 Temperature 97.6 F Pulse Rate 52 L 64 64 Respiratory Rate 18 Blood Pressure 124/60 Pulse Oximetry 99 02/05/18 19:00 02/05/18 20:00 02/05/18 21:00 Temperature 99.2 F Pulse Rate 62 62 85 Respiratory Rate 20 Blood Pressure 142/64 H Pulse Oximetry 99 02/05/18 22:00 02/05/18 22:28 02/05/18 23:00 Temperature Pulse Rate 76 67 54 L Respiratory Rate 20 Blood Pressure Pulse Oximetry 99 02/06/18 00:00 02/06/18 01:00 02/06/18 01:03 Temperature 97.4 F L Pulse Rate 56 L 52 L Respiratory Rate 18 Blood Pressure 139/65 Pulse Oximetry 98 96 02/06/18 02:00 02/06/18 03:00 02/06/18 04:00 Temperature 97.8 F Pulse Rate 52 L 52 L 54 L Respiratory Rate 20 Blood Pressure 149/66 H Pulse Oximetry 99 02/06/18 04:45 02/06/18 05:00 02/06/18 06:00 Temperature Pulse Rate 48 L 59 L Respiratory Rate Blood Pressure Pulse Oximetry 95 02/06/18 07:00 02/06/18 08:46 Temperature Pulse Rate 56 L Respiratory Rate Blood Pressure Pulse Oximetry 95 Intake & Output 02/05/18 02/06/18 02/06/18 18:59 06:59 18:59 Intake Total 1020 / 1020 1020 / 1020 Output Total 3600 / 3600 2200 / 2200 Balance -2580 / -2580 -1180 / -1180 Weight 110.8 kg Intake: Oral 1020 / 1020 1020 / 1020 Output: Urine 3600 / 3600 2200 / 2200 Other: Date of Last Bowel Movement 02/04/18 02/04/18 - Urinary Catheter Management Indwelling Urethral Catheter Cath placed during this visit: yes, but has since been removed by the nurse Urethral indwelling: No Reason for continuing: Decision to DC catheter Insertion date: 01/30/18 Insertion time: 22:39 Removal date: 01/31/18 Removal time: 12:30 Female External Cath placed during this visit: no Results - Labs CBC & Chem 7: 02/05/18 04:53 02/05/18 04:53 Assessment and Plan - Plan 72 yo F with PMH of COPD who was admitted to [place] ED with chest pain and shortness of breath. Patient found to have lethargy and was intubated for airway protection; extubated 01/31. Patient found to have troponin elevations and EKG on arrival with AVR and V1 ST changes which normalized after intubation. Patient evaluated by Cardiology; concern for multi-vessel disease vs demand ischemia. Patient currently medically managed for possible ACS. Patient had worsening of respiratory status so was placed on BIPAP, steroids, and given additional diuresis. Cardiology considering TAVR. Chest pain and acute respiratory failure: Secondary to aortic stenosis. -Appreciate cardiology following. Status post heart cath. Severe aortic stenosis. No significant CAD. -CT surgery following and planning for TAVR. Patient states she is agreeable. hopefully this wek Continue aspirin, beta-jorge, and statin. -Continue diuresis with Lasix -Continue Norvasc for BP -Pulmonology following -Continue supplemental oxygen and breathing treatments. Enterobacter UTI. Recent suprapubic pain before hospitalization and multiple recent UTI's. -Monitor culture- growing entrobacter -Currently on Augmentin to complete the course of treatment. -get repeat UA now Anxiety -Xanax scheduled and as needed Iron deficiency anemia -Ferrous Sulfate Depression -Fluoxetine DVT GI prophylaxis -SCDs -Heparin -Pepcid d/w patient and out of bed to chair tid and up and ambulating
[2018-02-06 11:54] LABS: Bilirubin,Urine Negative (Negative); Clarity,Urine Clear (Clear); Color,Urine Straw (Yellw/Straw); Glucose,Urine (UA) Negative (Negative); Leukocyte Esterase,Urine Negative (Negative); Nitrite,Urine Negative (Negative); Specific Gravity,Urine 1.005 (1.002-1.035)
--- NOTE | 2018-02-06 14:49 | P.PN ---
Subjective Interval history: doing better. On O2 2 L. used BiPAP at HS. Good output. will have TAVR on Wednesday Physical Exam Vital signs: Vital Signs 02/05/18 15:00 02/05/18 16:00 02/05/18 17:00 Temperature 97.6 F Pulse Rate 58 L 52 L 64 Respiratory Rate 18 Blood Pressure 124/60 Pulse Oximetry 99 02/05/18 18:00 02/05/18 19:00 02/05/18 20:00 Temperature 99.2 F Pulse Rate 64 62 62 Respiratory Rate 20 Blood Pressure 142/64 H Pulse Oximetry 99 02/05/18 21:00 02/05/18 22:00 02/05/18 22:28 Temperature Pulse Rate 85 76 67 Respiratory Rate 20 Blood Pressure Pulse Oximetry 99 02/05/18 23:00 02/06/18 00:00 02/06/18 01:00 Temperature 97.4 F L Pulse Rate 54 L 56 L 52 L Respiratory Rate 18 Blood Pressure 139/65 Pulse Oximetry 98 02/06/18 01:03 02/06/18 02:00 02/06/18 03:00 Temperature Pulse Rate 52 L 52 L Respiratory Rate Blood Pressure Pulse Oximetry 96 02/06/18 04:00 02/06/18 04:45 02/06/18 05:00 Temperature 97.8 F Pulse Rate 54 L 48 L Respiratory Rate 20 Blood Pressure 149/66 H Pulse Oximetry 99 95 02/06/18 06:00 02/06/18 07:00 02/06/18 08:00 Temperature 98.3 F Pulse Rate 59 L 56 L 67 Respiratory Rate 18 Blood Pressure 121/57 L Pulse Oximetry 96 02/06/18 08:46 Temperature Pulse Rate Respiratory Rate Blood Pressure Pulse Oximetry 95 Intake & Output 02/05/18 02/06/18 02/06/18 18:59 06:59 18:59 Intake Total 1020 / 1020 1020 / 1020 Output Total 3600 / 3600 2200 / 2200 Balance -2580 / -2580 -1180 / -1180 Weight 110.8 kg Intake: Oral 1020 / 1020 1020 / 1020 Output: Urine 3600 / 3600 2200 / 2200 Other: Date of Last Bowel Movement 02/04/18 02/04/18 02/04/18 Narrative: GENERAL: This is a well-nourished, well-developed patient, in no acute distress CARDIOVASCULAR: Normal rate and regular rhythm. 3 / 6 COLLINS murmur best heard over the right sternal border. RESPIRATORY: Good respiratory efforts. Bilateral fine rales at bases, and wheeze . GASTROINTESTINAL: Abdomen soft, non-tender, non-distended. Normal active bowel sounds MUSCULOSKELETAL: Extremities without cyanosis, - edema.- 1 + NEURO: Alert & Oriented x4 to person, place, time, situation. Moves all ext x4 PSYCH: Appropriate mood and affect. - Urinary Catheter Management Indwelling Urethral Catheter Cath placed during this visit: yes, but has since been removed by the nurse Urethral indwelling: No Reason for continuing: Decision to DC catheter Insertion date: 01/30/18 Insertion time: 22:39 Removal date: 01/31/18 Removal time: 12:30 Female External Cath placed during this visit: no Results - Labs CBC & Chem 7: 02/05/18 04:53 02/05/18 04:53 Laboratory Results - last 24 hr 02/06/18 11:15 Urine Color Straw Urine Clarity Clear Urine pH 7.0 Ur Specific [place] 1.005 Urine Protein Negative Urine Glucose (UA) Negative Urine Ketones Negative Urine Occult Blood Negative Urine Nitrate Negative Urine Bilirubin Negative Urine Urobilinogen Less than 2 Ur Leukocyte Esterase Negative Urine WBC Less than 1 Micro UA Comment Cath-culture not ind Ur Microscopic Review Not Reportable Urine Culture Comments Cath-cult not ind Assessment and Plan - Assessment (1) Asthma Code(s): J45.909 - Unspecified asthma, uncomplicated Status: Acute (2) CHF (congestive heart failure) Code(s): I50.9 - Heart failure, unspecified Status: Acute (3) Respiratory failure Code(s): J96.90 - Respiratory failure, unspecified, unspecified whether with hypoxia or hypercapnia Status: Acute (4) Chest pain Code(s): R07.9 - Chest pain, unspecified Status: Acute (5) NSTEMI (non-ST elevated myocardial infarction) Code(s): I21.4 - Non-ST elevation (NSTEMI) myocardial infarction Status: Acute (6) Pulmonary hypertension assoc with unclear multi-factorial mechanisms Code(s): I27.29 - Other secondary pulmonary hypertension Status: Acute (7) Aortic valvar stenosis Code(s): I35.0 - Nonrheumatic aortic (valve) stenosis Status: Acute - Plan 1. Will cont on O2 2 L. 2. IS at bedside qid 3. TAVR per CT surgery 4. Cont Duonebs qid. 5. Continue Lasix 40 mg BID 6. Will get OP sleep test. 7. Mucomyst 2 CC 10 % TID (2) CHF (congestive heart failure) Qualifiers: Heart failure type: diastolic Heart failure chronicity: acute on chronic Qualified Code(s): I50.33 - Acute on chronic diastolic (congestive) heart failure (3) Respiratory failure Qualifiers: Chronicity: acute Respiratory failure complication: hypoxia Qualified Code(s ): J96.01 - Acute respiratory failure with hypoxia (4) Chest pain Qualifiers: Chest pain type: unspecified Qualified Code(s): R07.9 - Chest pain, unspecified
[2018-02-06] MEDS: Montelukast 10 MG Tablet PO SCH (18:45)
[2018-02-07] MEDS: Levothyroxine 50 MCG Tablet PO SCH (05:41)
[2018-02-07] MEDS: FLUoxetine 20 MG Capsule PO SCH ×2 (09:53→21:40)
[2018-02-07] MEDS: Amoxicillin/Clavulanate 875/125 MG Tablet PO SCH ×2 (09:53→21:36)
[2018-02-07] MEDS: Carvedilol 6.25 MG Tablet PO SCH ×2 (09:54→21:37)
[2018-02-07] MEDS: Gabapentin 300 MG Capsule PO SCH ×3 (09:54→18:22)
[2018-02-07] MEDS: amLODIPine 10 MG Tablet PO SCH (09:54)
[2018-02-07] MEDS: Ferrous Sulfate 325 MG Tablet PO SCH (09:54)
[2018-02-07] MEDS: Senna/Docusate Sodium 8.6/50 MG Tablet PO SCH ×2 (09:55→21:39)
[2018-02-07] MEDS: Mometasone Furoate 50 MCG/ACT 17 GM Nasal Spray Bottle EACH NARE SCH (09:55)
[2018-02-07] MEDS: MethylPREDNISolone Sod Succinate Inj 40 MG/ML Vial IV.PUSH SCH ×2 (09:55→21:40)
[2018-02-07] MEDS: Budesonide-Formoterol 160/4.5 MCG 6 GM Inhaler INH SCH ×2 (09:55→21:38)
[2018-02-07] MEDS: Famotidine PF Inj 20 MG/2 ML Vial IV.PUSH SCH ×2 (09:55→21:39)
[2018-02-07] MEDS: Lactobacillus Acidophilus/L. Spores Tablet PO SCH (09:55)
[2018-02-07] MEDS: Hydrocortisone 2.5% Cream 30 GM Tube TOPICAL SCH ×2 (09:56→21:37)
[2018-02-07] MEDS: Dorzolamide 2% Opth Drops 10 ML Bottle EACH EYE SCH ×3 (09:56→18:23)
--- NOTE | 2018-02-07 11:54 | P.PNCA ---
Subjective Interval history: No events over the weekend Diuresing well On 2L now with sat 98% Physical Exam Vital signs: Vital Signs 02/06/18 12:00 02/06/18 13:00 02/06/18 14:00 Temperature 97.9 F Pulse Rate 64 64 70 Respiratory Rate 18 Blood Pressure 117/43 L Pulse Oximetry 97 02/06/18 15:00 02/06/18 16:00 02/06/18 16:26 Temperature 98.2 F Pulse Rate 72 80 70 Respiratory Rate 18 18 Blood Pressure 132/64 Pulse Oximetry 96 02/06/18 17:00 02/06/18 18:00 02/06/18 19:00 Temperature Pulse Rate 60 62 74 Respiratory Rate Blood Pressure Pulse Oximetry 02/06/18 20:00 02/06/18 20:48 02/06/18 20:51 Temperature 98.1 F Pulse Rate 80 61 70 Respiratory Rate 18 18 Blood Pressure 112/68 Pulse Oximetry 96 98 02/06/18 21:00 02/06/18 22:00 02/06/18 23:00 Temperature Pulse Rate 60 60 58 L Respiratory Rate Blood Pressure Pulse Oximetry 02/06/18 23:49 02/07/18 00:00 02/07/18 01:00 Temperature 98.0 F Pulse Rate 77 58 L 60 Respiratory Rate 18 Blood Pressure 135/80 Pulse Oximetry 97 02/07/18 02:00 02/07/18 03:00 02/07/18 03:36 Temperature Pulse Rate 54 L 61 77 Respiratory Rate 16 Blood Pressure Pulse Oximetry 02/07/18 03:39 02/07/18 04:00 02/07/18 05:00 Temperature 97.8 F Pulse Rate 68 58 L 54 L Respiratory Rate 17 Blood Pressure 141/63 H Pulse Oximetry 96 02/07/18 06:00 02/07/18 07:00 02/07/18 08:00 Temperature 98.5 F Pulse Rate 61 59 L 63 Respiratory Rate 18 Blood Pressure 133/57 L Pulse Oximetry 98 02/07/18 10:32 02/07/18 10:34 Temperature Pulse Rate 65 Respiratory Rate 18 Blood Pressure Pulse Oximetry 98 Intake & Output 02/06/18 02/07/18 02/07/18 18:59 06:59 18:59 Intake Total 1200 / 1200 330 / 330 Output Total 3425 / 3425 1850 / 1850 Balance -2225 / -2225 -1520 / -1520 Weight 111 kg Intake: Oral 1200 / 1200 330 / 330 Output: Urine 3425 / 3425 185 / 1850 Other: Date of Last Bowel Movement 02/04/18 02/04/18 02/04/18 Narrative: GENERAL: This is a well-nourished, well-developed patient, in no acute distress CARDIOVASCULAR: Normal rate and regular rhythm. 3 / 6 COLLINS murmur best heard over the right sternal border. RESPIRATORY: Good respiratory efforts. Bilateral fine rales at bases, and wheeze . GASTROINTESTINAL: Abdomen soft, non-tender, non-distended. Normal active bowel sounds MUSCULOSKELETAL: Extremities without cyanosis, - edema.- 1 + NEURO: Alert & Oriented x4 to person, place, time, situation. Moves all ext x4 PSYCH: Appropriate mood and affect. - Urinary Catheter Management Indwelling Urethral Catheter Cath placed during this visit: yes, but has since been removed by the nurse Urethral indwelling: No Reason for continuing: Decision to DC catheter Insertion date: 01/30/18 Insertion time: 22:39 Removal date: 01/31/18 Removal time: 12:30 Female External Cath placed during this visit: no Assessment and Plan - Assessment (1) Abnormal EKG Code(s): R94.31 - Abnormal electrocardiogram [ECG] [EKG] Status: Acute (2) NSTEMI (non-ST elevated myocardial infarction) Code(s): I21.4 - Non-ST elevation (NSTEMI) myocardial infarction Status: Acute (3) Respiratory failure Code(s): J96.90 - Respiratory failure, unspecified, unspecified whether with hypoxia or hypercapnia Status: Acute (4) Chest pain Code(s): R07.9 - Chest pain, unspecified Status: Acute - Plan 1) CP/SOB Secondary to severe No significant CAD 2) Acute respiratory failure due to Acute decompensated heart failure Elevated left sided filling pressures Con't diuresis Weights increasing? But good urine output daily and clinically appears better Bipap as needed 3) Abnormal EKG Due to severe with subendocardial injury 4) CT surgery consulted Plan for TAVR on 02/16 Will attempt to discharge home with home health care when stable and bring back electively (3) Respiratory failure Qualifiers: Chronicity: acute Respiratory failure complication: hypoxia Qualified Code(s ): J96.01 - Acute respiratory failure with hypoxia (4) Chest pain Qualifiers: Chest pain type: unspecified Qualified Code(s): R07.9 - Chest pain, unspecified
--- NOTE | 2018-02-07 14:10 | P.PN ---
Subjective Interval history: patient slightly disapointed with rescheduling of TAVR but xpressed udnerstanding- maximize her cliical condition good po Physical Exam Vital signs: Vital Signs 02/06/18 15:00 02/06/18 16:00 02/06/18 16:26 Temperature 98.2 F Pulse Rate 72 80 70 Respiratory Rate 18 18 Blood Pressure 132/64 Pulse Oximetry 96 02/06/18 17:00 02/06/18 18:00 02/06/18 19:00 Temperature Pulse Rate 60 62 74 Respiratory Rate Blood Pressure Pulse Oximetry 02/06/18 20:00 02/06/18 20:48 02/06/18 20:51 Temperature 98.1 F Pulse Rate 80 61 70 Respiratory Rate 18 18 Blood Pressure 112/68 Pulse Oximetry 96 98 02/06/18 21:00 02/06/18 22:00 02/06/18 23:00 Temperature Pulse Rate 60 60 58 L Respiratory Rate Blood Pressure Pulse Oximetry 02/06/18 23:49 02/07/18 00:00 02/07/18 01:00 Temperature 98.0 F Pulse Rate 77 58 L 60 Respiratory Rate 18 Blood Pressure 135/80 Pulse Oximetry 97 02/07/18 02:00 02/07/18 03:00 02/07/18 03:36 Temperature Pulse Rate 54 L 61 77 Respiratory Rate 16 Blood Pressure Pulse Oximetry 02/07/18 03:39 02/07/18 04:00 02/07/18 05:00 Temperature 97.8 F Pulse Rate 68 58 L 54 L Respiratory Rate 17 Blood Pressure 141/63 H Pulse Oximetry 96 02/07/18 06:00 02/07/18 07:00 02/07/18 08:00 Temperature 98.5 F Pulse Rate 61 59 L 66 Respiratory Rate 18 Blood Pressure 133/57 L Pulse Oximetry 98 02/07/18 09:00 02/07/18 10:00 02/07/18 10:32 Temperature Pulse Rate 70 66 65 Respiratory Rate 18 Blood Pressure Pulse Oximetry 02/07/18 10:34 02/07/18 12:00 Temperature 98.2 F Pulse Rate 66 Respiratory Rate 18 Blood Pressure 114/60 Pulse Oximetry 98 97 Intake & Output 02/06/18 02/07/18 02/07/18 18:59 06:59 18:59 Intake Total 1200 / 1200 330 / 330 Output Total 3425 / 3425 1850 / 1850 Balance -2225 / -2225 -1520 / -1520 Weight 111 kg Intake: Oral 1200 / 1200 330 / 330 Output: Urine 3425 / 3425 1850 / 1850 Other: Date of Last Bowel Movement 02/04/18 02/04/18 02/04/18 - Urinary Catheter Management Indwelling Urethral Catheter Cath placed during this visit: yes, but has since been removed by the nurse Urethral indwelling: No Reason for continuing: Decision to DC catheter Insertion date: 01/30/18 Insertion time: 22:39 Removal date: 01/31/18 Removal time: 12:30 Female External Cath placed during this visit: no Results - Labs CBC & Chem 7: 02/05/18 04:53 02/05/18 04:53 Assessment and Plan - Plan 72 yo F with PMH of COPD who was admitted to [place] ED with chest pain and shortness of breath. Patient found to have lethargy and was intubated for airway protection; extubated 01/31. Patient found to have troponin elevations and EKG on arrival with AVR and V1 ST changes which normalized after intubation. Patient evaluated by Cardiology; concern for multi-vessel disease vs demand ischemia. Patient currently medically managed for possible ACS. Patient had worsening of respiratory status so was placed on BIPAP, steroids, and given additional diuresis. Cardiology considering TAVR. Chest pain and acute respiratory failure: Secondary to aortic stenosis. - no chest pains, up and ambulating -Appreciate cardiology following. Status post heart cath. Severe aortic stenosis. No significant CAD. -CT surgery following and planning for TAVR. Patient states she is agreeable. hopefully this wek Continue aspirin, beta-jorge, and statin. -Continue diuresis with Lasix -Continue Norvasc for BP -Pulmonology following -Continue supplemental oxygen and breathing treatments. TAVR rescheduled for 919 Enterobacter UTI. Recent suprapubic pain before hospitalization and multiple recent UTI's. Resolved- repeat UA negative -Monitor culture- growing entrobacter -Currently on Augmentin to complete the course of treatment. - Anxiety -Xanax scheduled and as needed Iron deficiency anemia -Ferrous Sulfate Depression -Fluoxetine DVT GI prophylaxis -SCDs -Heparin -Pepcid d/w patient and out of bed to chair tid and up and ambulating patient has home -2, walker already CM consult for homebhealth care nurisng visits DC 1-2- diuresing well
[2018-02-07] MEDS: Tiotropium Bromide 18 MCG/ACT Inhaler INH SCH (14:11)
[2018-02-07] MEDS: Montelukast 10 MG Tablet PO SCH (18:23)
--- NOTE | 2018-02-07 19:58 | P.PN ---
Subjective Interval history: She is breathing OK. Good diuresis with lasix. On O2 and used BIPAP at HS. Will have TAVR in 2 weeks Physical Exam Vital signs: Vital Signs 02/06/18 20:00 02/06/18 20:48 02/06/18 20:51 Temperature 98.1 F Pulse Rate 80 61 70 Respiratory Rate 18 18 Blood Pressure 112/68 Pulse Oximetry 96 98 02/06/18 21:00 02/06/18 22:00 02/06/18 23:00 Temperature Pulse Rate 60 60 58 L Respiratory Rate Blood Pressure Pulse Oximetry 02/06/18 23:49 02/07/18 00:00 02/07/18 01:00 Temperature 98.0 F Pulse Rate 77 58 L 60 Respiratory Rate 18 Blood Pressure 135/80 Pulse Oximetry 97 02/07/18 02:00 02/07/18 03:00 02/07/18 03:36 Temperature Pulse Rate 54 L 61 77 Respiratory Rate 16 Blood Pressure Pulse Oximetry 02/07/18 03:39 02/07/18 04:00 02/07/18 05:00 Temperature 97.8 F Pulse Rate 68 58 L 54 L Respiratory Rate 17 Blood Pressure 141/63 H Pulse Oximetry 96 02/07/18 06:00 02/07/18 07:00 02/07/18 08:00 Temperature 98.5 F Pulse Rate 61 59 L 66 Respiratory Rate 18 Blood Pressure 133/57 L Pulse Oximetry 98 02/07/18 09:00 02/07/18 10:00 02/07/18 10:32 Temperature Pulse Rate 70 66 65 Respiratory Rate 18 Blood Pressure Pulse Oximetry 02/07/18 10:34 02/07/18 11:00 02/07/18 12:00 Temperature 98.2 F Pulse Rate 70 64 Respiratory Rate 18 Blood Pressure 114/60 Pulse Oximetry 98 97 02/07/18 13:00 02/07/18 14:00 02/07/18 15:00 Temperature Pulse Rate 70 60 69 Respiratory Rate Blood Pressure Pulse Oximetry 02/07/18 15:51 02/07/18 16:00 02/07/18 17:00 Temperature 98.0 F Pulse Rate 67 62 60 Respiratory Rate 18 18 Blood Pressure 129/66 Pulse Oximetry 97 02/07/18 18:00 Temperature Pulse Rate 64 Respiratory Rate Blood Pressure Pulse Oximetry Intake & Output 09/03/1702/07/18 02/08/18 06:59 18:59 06:59 Intake Total 330 / 330 1440 / 1440 Output Total 1850 / 1850 2500 / 2500 Balance -1520 / -1520 -1060 / -1060 Weight 111 kg Intake: Oral 330 / 330 1440 / 1440 Output: Urine 1850 / 1850 2500 / 2500 Other: Date of Last Bowel Movement 02/04/18 02/04/18 Narrative: GENERAL: This is a well-nourished, well-developed patient, in no acute distress CARDIOVASCULAR: Normal rate and regular rhythm. 3 / 6 COLLINS murmur best heard over the right sternal border. RESPIRATORY: Good respiratory efforts. Bilateral fine rales at bases, and wheeze . GASTROINTESTINAL: Abdomen soft, non-tender, non-distended. Normal active bowel sounds. No organomegaly MUSCULOSKELETAL: Extremities without cyanosis, - edema.- 1 + NEURO: Alert & Oriented x4 to person, place, time, situation. Moves all ext x4 PSYCH: Appropriate mood and affect. - Urinary Catheter Management Indwelling Urethral Catheter Cath placed during this visit: yes, but has since been removed by the nurse Urethral indwelling: No Reason for continuing: Decision to DC catheter Insertion date: 01/30/18 Insertion time: 22:39 Removal date: 01/31/18 Removal time: 12:30 Female External Cath placed during this visit: no Results - Labs CBC & Chem 7: 02/05/18 04:53 02/05/18 04:53 Assessment and Plan - Assessment (1) Asthma Code(s): J45.909 - Unspecified asthma, uncomplicated Status: Acute (2) CHF (congestive heart failure) Code(s): I50.9 - Heart failure, unspecified Status: Acute (3) Respiratory failure Code(s): J96.90 - Respiratory failure, unspecified, unspecified whether with hypoxia or hypercapnia Status: Acute (4) Chest pain Code(s): R07.9 - Chest pain, unspecified Status: Acute (5) NSTEMI (non-ST elevated myocardial infarction) Code(s): I21.4 - Non-ST elevation (NSTEMI) myocardial infarction Status: Acute (6) Pulmonary hypertension assoc with unclear multi-factorial mechanisms Code(s): I27.29 - Other secondary pulmonary hypertension Status: Acute (7) Aortic valvar stenosis Code(s): I35.0 - Nonrheumatic aortic (valve) stenosis Status: Acute - Plan 1. Will cont on O2 2 L. 2. IS at bedside qid 3. TAVR per CT surgery next week 4. Cont Duonebs qid. 5. Continue Lasix 40 mg BID 6. Will get OP sleep test. 7. Cont Mucomyst 2 CC 10 % TID 8. Labs in am. (2) CHF (congestive heart failure) Qualifiers: Heart failure type: diastolic Heart failure chronicity: acute on chronic Qualified Code(s): I50.33 - Acute on chronic diastolic (congestive) heart failure (3) Respiratory failure Qualifiers: Chronicity: acute Respiratory failure complication: hypoxia Qualified Code(s ): J96.01 - Acute respiratory failure with hypoxia (4) Chest pain Qualifiers: Chest pain type: unspecified Qualified Code(s): R07.9 - Chest pain, unspecified
--- NOTE | 2018-02-07 23:01 | MB ---
cc: Emilie Adames MD DATE: 02/07/2018 REASON FOR CONSULTATION: Aortic stenosis per possible conduction disease in the patient's report. HISTORY OF PRESENT ILLNESS: Mrs. Ornelas is a 72-year-old female with history of COPD, high blood pressure. Aortic stenoses who was admitted due to chest pain. In hospitalization, the patient was found to has severe aortic stenosis. A decision for possible TAVR was taking and I was consulted for evaluation and management. The chart was reviewed. The patient was evaluated. ALLERGIES: MULTIPLE. 1. THE PATIENT IS ALLERGIC TO E[employer]L INHIBITOR. 2. 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 3. NIFEDIPINE. 4. CODEINE. 5. HYDROCODONE 6. PSEUDOEPHEDRINE. 7. CEFACLOR. 8. ITRACONAZOLE. 9. HYDRALAZINE. 10. MEPERIDINE. 11. TOPIRAMATE. 12. LEVOXYL. REVIEW OF SYSTEMS: The patient referred no chest pain. Feeling better today. No chest discomfort. No fever. MEDICATIONS: 1. The patient is on Norvasc 10 mg a day. 2. Xanax 1 mg a day. 3. Geodon 40 mg twice a day. 4. Zolpidem. 5. Requip 0.25 mg 3 times a day. 5. Pravachol 40 mg. 6. Singulair. 7. Nasonex. 8. Elocon. 9. Metronidazole. 10. Lidocaine q.a.m. 11. Synthroid. 12. Levaquin. 13. Lasix. 14. Prozac. 15. Iron. 16. Flovent. 17. Coreg. 18. Restoril. 19. Aldactone. 20. Potassium. . REVIEW OF SYSTEMS: The patient is feeling better today. No chest pain, no jaw discomfort. PHYSICAL EXAMINATION: GENERAL: Alert, fully oriented. VITAL SIGNS: Blood pressure 129/66, pulse 64, respiratory rate 18. LUNGS: Ventilated. CARDIOVASCULAR: S1, S2. There is a systolic ejection murmur 2-3/6. ABDOMEN: Obese. No masses. EXTREMITIES: No edema. LABORATORY DATA: Electrocardiogram shows sinus with diffuse ST changes. Possible LVH. LABORATORY DATA: Hemoglobin is 9.5. White blood cell is 13.3, INR is 1.0. Potassium 3.6, creatinine 0.83. ASSESSMENT AND RECOMMENDATIONS: Ms. Ornelas is stable, has less shortness of breath, ambulating. Electrocardiogram show sinus rhythm with diffuse ST changes. Some LVH. There is no sign of conduction disease. AT this point, my recommendation is to continue current management. There is no need at this point for pacing support. I will evaluate the patient if necessary post-CABG case. MD JOSHUA Howell/clint/ , 06:26 PM , 06:35 PM
[2018-02-08] MEDS: Levothyroxine 50 MCG Tablet PO SCH (06:59)
[2018-02-08] MEDS: Senna/Docusate Sodium 8.6/50 MG Tablet PO SCH (09:45)
[2018-02-08] MEDS: Ferrous Sulfate 325 MG Tablet PO SCH (09:45)
[2018-02-08] MEDS: Gabapentin 300 MG Capsule PO SCH ×2 (09:45→13:38)
[2018-02-08] MEDS: amLODIPine 10 MG Tablet PO SCH (09:45)
[2018-02-08] MEDS: Amoxicillin/Clavulanate 875/125 MG Tablet PO SCH (09:45)
[2018-02-08] MEDS: FLUoxetine 20 MG Capsule PO SCH (09:46)
[2018-02-08] MEDS: Carvedilol 6.25 MG Tablet PO SCH (09:46)
[2018-02-08] MEDS: Famotidine PF Inj 20 MG/2 ML Vial IV.PUSH SCH (09:46)
[2018-02-08] MEDS: Lactobacillus Acidophilus/L. Spores Tablet PO SCH (09:46)
[2018-02-08] MEDS: MethylPREDNISolone Sod Succinate Inj 40 MG/ML Vial IV.PUSH SCH (09:47)
[2018-02-08] MEDS: Mometasone Furoate 50 MCG/ACT 17 GM Nasal Spray Bottle EACH NARE SCH (09:48)
[2018-02-08] MEDS: Hydrocortisone 2.5% Cream 30 GM Tube TOPICAL SCH (09:48)
[2018-02-08] MEDS: Tiotropium Bromide 18 MCG/ACT Inhaler INH SCH (09:48)
[2018-02-08] MEDS: Dorzolamide 2% Opth Drops 10 ML Bottle EACH EYE SCH ×2 (09:48→13:38)
[2018-02-08] MEDS: Budesonide-Formoterol 160/4.5 MCG 6 GM Inhaler INH SCH (09:48)
--- NOTE | 2018-02-08 12:36 | P.PN ---
Subjective Interval history: patient feels better,up and ambulating around- comfortable diuresing very well ready to go home telemetry in [facility] Physical Exam Vital signs: Vital Signs 02/07/18 13:00 02/07/18 14:00 02/07/18 15:00 Temperature Pulse Rate 70 60 69 Respiratory Rate Blood Pressure Pulse Oximetry 02/07/18 15:51 02/07/18 16:00 02/07/18 17:00 Temperature 98.0 F Pulse Rate 67 62 60 Respiratory Rate 18 18 Blood Pressure 129/66 Pulse Oximetry 97 02/07/18 18:00 02/07/18 19:00 02/07/18 20:00 Temperature 98.6 F Pulse Rate 64 64 65 Respiratory Rate Blood Pressure 124/56 L Pulse Oximetry 95 02/07/18 21:00 02/07/18 21:50 02/07/18 22:00 Temperature Pulse Rate 64 78 62 Respiratory Rate 18 Blood Pressure Pulse Oximetry 97 02/07/18 22:10 02/07/18 23:00 02/08/18 00:00 Temperature 97.4 F L Pulse Rate 58 L 64 Respiratory Rate Blood Pressure 155/71 H Pulse Oximetry 98 95 02/08/18 01:00 02/08/18 02:00 02/08/18 03:00 Temperature Pulse Rate 56 L 56 L 58 L Respiratory Rate Blood Pressure Pulse Oximetry 02/08/18 03:03 02/08/18 03:07 02/08/18 04:00 Temperature 98.3 F Pulse Rate 56 L 57 L Respiratory Rate 12 Blood Pressure 147/70 H Pulse Oximetry 98 98 02/08/18 04:17 02/08/18 05:00 02/08/18 06:00 Temperature Pulse Rate 57 L 56 L Respiratory Rate Blood Pressure Pulse Oximetry 99 02/08/18 09:20 Temperature Pulse Rate 66 Respiratory Rate 14 Blood Pressure Pulse Oximetry 99 Intake & Output 02/07/18 02/08/18 02/08/18 18:59 06:59 18:59 Intake Total 1440 / 1440 480 / 480 Output Total 2500 / 2500 1000 / 1000 Balance -1060 / -1060 -520 / -520 Weight 102.8 kg Intake: Oral 1440 / 1440 480 / 480 Output: Urine 2500 / 2500 1000 / 1000 Other: Date of Last Bowel Movement 02/04/18 # Bowel Movements 0 - Urinary Catheter Management Indwelling Urethral Catheter Cath placed during this visit: yes, but has since been removed by the nurse Urethral indwelling: No Reason for continuing: Decision to DC catheter Insertion date: 01/30/18 Insertion time: 22:39 Removal date: 01/31/18 Removal time: 12:30 Female External Cath placed during this visit: no Results - Labs CBC & Chem 7: 02/05/18 04:53 02/05/18 04:53 Assessment and Plan - Plan 72 yo F with PMH of COPD who was admitted to [place] ED with chest pain and shortness of breath. Patient found to have lethargy and was intubated for airway protection; extubated 01/31. Patient found to have troponin elevations and EKG on arrival with AVR and V1 ST changes which normalized after intubation. Patient evaluated by Cardiology; concern for multi-vessel disease vs demand ischemia. Patient currently medically managed for possible ACS. Patient had worsening of respiratory status so was placed on BIPAP, steroids, and given additional diuresis. Cardiology considering TAVR. Chest pain and acute respiratory failure: Secondary to aortic stenosis. - no chest pains, up and ambulating -Appreciate cardiology following. Status post heart cath. Severe aortic stenosis. No significant CAD. -CT surgery following and planning for TAVR. Patient states she is agreeable. next week 02/16 Continue aspirin, beta-jorge, and statin. -Continue diuresis with Lasix- change to po bid -Continue Norvasc for BP -Pulmonology following -Continue supplemental oxygen and breathing treatments. TAVR rescheduled for 919 ckeared for DC by cardiology OP ff up with Pulmonary- Dr. Yo Enterobacter UTI. Recent suprapubic pain before hospitalization and multiple recent UTI's. Resolved- repeat UA negative -Monitor culture- growing entrobacter -Currently on Augmentin to complete the course of treatment. - Anxiety -Xanax scheduled and as needed Iron deficiency anemia -Ferrous Sulfate Depression -Fluoxetine DVT GI prophylaxis -SCDs -Heparin -Pepcid d/w patient and out of bed to chair tid and up and ambulating patient has home -2, walker already CM consult for homebhealth care nurisng visits DC home today OP ff up with PCP and crdiology
--- NOTE | 2018-02-08 12:57 | P.PNCA ---
Subjective Interval history: Breathing much better Diuresed off 19L over hospital course, weights down Physical Exam Vital signs: Vital Signs 02/07/18 13:00 02/07/18 14:00 02/07/18 15:00 Temperature Pulse Rate 70 60 69 Respiratory Rate Blood Pressure Pulse Oximetry 02/07/18 15:51 02/07/18 16:00 02/07/18 17:00 Temperature 98.0 F Pulse Rate 67 62 60 Respiratory Rate 18 18 Blood Pressure 129/66 Pulse Oximetry 97 02/07/18 18:00 02/07/18 19:00 02/07/18 20:00 Temperature 98.6 F Pulse Rate 64 64 65 Respiratory Rate Blood Pressure 124/56 L Pulse Oximetry 95 02/07/18 21:00 02/07/18 21:50 02/07/18 22:00 Temperature Pulse Rate 64 78 62 Respiratory Rate 18 Blood Pressure Pulse Oximetry 97 02/07/18 22:10 02/07/18 23:00 02/08/18 00:00 Temperature 97.4 F L Pulse Rate 58 L 64 Respiratory Rate Blood Pressure 155/71 H Pulse Oximetry 98 95 02/08/18 01:00 02/08/18 02:00 02/08/18 03:00 Temperature Pulse Rate 56 L 56 L 58 L Respiratory Rate Blood Pressure Pulse Oximetry 02/08/18 03:03 02/08/18 03:07 02/08/18 04:00 Temperature 98.3 F Pulse Rate 56 L 57 L Respiratory Rate 12 Blood Pressure 147/70 H Pulse Oximetry 98 98 02/08/18 04:17 02/08/18 05:00 02/08/18 06:00 Temperature Pulse Rate 57 L 56 L Respiratory Rate Blood Pressure Pulse Oximetry 99 02/08/18 09:20 Temperature Pulse Rate 66 Respiratory Rate 14 Blood Pressure Pulse Oximetry 99 Intake & Output 02/07/18 02/08/18 02/08/18 18:59 06:59 18:59 Intake Total 1440 / 1440 480 / 480 Output Total 2500 / 2500 1000 / 1000 Balance -1060 / -1060 -520 / -520 Weight 102.8 kg Intake: Oral 1440 / 1440 480 / 480 Output: Urine 2500 / 2500 1000 / 1000 Other: Date of Last Bowel Movement 02/04/18 # Bowel Movements 0 Narrative: GENERAL: This is a well-nourished, well-developed patient, in no acute distress CARDIOVASCULAR: Normal rate and regular rhythm. 3 / 6 COLLINS murmur best heard over the right sternal border. RESPIRATORY: Good respiratory efforts. CTA B/L . GASTROINTESTINAL: Abdomen soft, non-tender, non-distended. Normal active bowel sounds. No organomegaly MUSCULOSKELETAL: Extremities without cyanosis, - edema.- 1 + NEURO: Alert & Oriented x4 to person, place, time, situation. Moves all ext x4 PSYCH: Appropriate mood and affect. - Urinary Catheter Management Indwelling Urethral Catheter Cath placed during this visit: yes, but has since been removed by the nurse Urethral indwelling: No Reason for continuing: Decision to DC catheter Insertion date: 01/30/18 Insertion time: 22:39 Removal date: 01/31/18 Removal time: 12:30 Female External Cath placed during this visit: no Assessment and Plan - Assessment (1) Abnormal EKG Code(s): R94.31 - Abnormal electrocardiogram [ECG] [EKG] Status: Acute (2) NSTEMI (non-ST elevated myocardial infarction) Code(s): I21.4 - Non-ST elevation (NSTEMI) myocardial infarction Status: Acute (3) Respiratory failure Code(s): J96.90 - Respiratory failure, unspecified, unspecified whether with hypoxia or hypercapnia Status: Acute (4) Chest pain Code(s): R07.9 - Chest pain, unspecified Status: Acute - Plan 1) CP/SOB Secondary to severe No significant CAD 2) Acute respiratory failure due to Acute decompensated heart failure Elevated left sided filling pressures Diuresed well Oxygen as needed at home 3) Abnormal EKG Due to severe with subendocardial injury 4) CT surgery consulted Plan for TAVR on 02/16 Will attempt to discharge home with home health care when stable and bring back electively 5) Cardiovascularly stable for discharge TAVR on 02/16 Will watch weight at home Decrease salt/water intake (3) Respiratory failure Qualifiers: Chronicity: acute Respiratory failure complication: hypoxia Qualified Code(s ): J96.01 - Acute respiratory failure with hypoxia (4) Chest pain Qualifiers: Chest pain type: unspecified Qualified Code(s): R07.9 - Chest pain, unspecified
--- NOTE | 2018-02-08 13:05 | P.DCO ---
- Physical Therapy Order: Evaluate and treat - Home Health Nursing Order: Medical education, Signs/symptoms of disease process, CHF education, Oxygen administration education - Newspaper Photojournalist Order: To evaluate: Support services Order: To provide: Community services - Case Management Consult Yes - Certification I have seen patient Tomas Ornelas on 02/08/18. My clinical findings support the need for the requested home health care services because: Patient has SOB, Deconditioned with increased weakness, Need for psychosocial assistance I certify that my clinical findings support that this patient is homebound because: Need for psychosocial assistance
[2018-02-08 13:39] LABS: Calcium 8.5 mg/dL (8.5-10.1); Carbon Dioxide 33.2 meq/L (21.0-32.0); Potassium 3.6 meq/L (3.5-5.1)
[2018-02-08] MEDS ORDERED: Furosemide 40 MG Tablet PO SCH (18:00)
[2018-02-08] MEDS ORDERED: MethylPREDNISolone Sod Succinate Inj 40 MG/ML Vial IV.PUSH SCH (21:00)
[2018-02-08] MEDS ORDERED: predniSONE 20 MG Tablet PO SCH (21:00)
--- NOTE | 2018-02-09 09:12 | P.DS ---
Date of admission: 01/30/18 20:15 Primary care physician: UNKNOWN Anticipated date of discharge: 02/08/18 Brief History from admission: 72-year-old female presented to the emergency department at [facility] with complaints of chest pain and shortness of breath. Per chart review the chest pain started last night. The nature of the chest pain was pressure pain across the anterior chest without radiation. No palpitation nausea diaphoresis. Patient has history of COPD. The patient is on home O2. Per chart review the chest pain associated with shortness of breath was worsening this afternoon. Patient became lethargic and dusky on the face. Patient was driven by her to the emergency room by private vehicle. Upon arrival patient was lethargic and unable to provide information. She was intubated by ED attending for an airway protection. The case was discussed by desilverizer on-call Dr. Burgess and the patient has been transferred to [facility] for higher level of care possible cardiac catheterization. Patient update on day of discharge: up and ambulating, no chest pain, or shortness of breath, sinus DS: Medications - Discharge Medications Prescriptions: amoxicillin-pot clavulanate 1 tab PO Q12HR #3 tab prednisone 20 mg PO BID 4 Days #8 tab DS: Summary Hospital Course: 72 yo F with PMH of COPD who was admitted to [facility] ED with chest pain and shortness of breath. Patient found to have lethargy and was intubated for airway protection; extubated 01/31. Patient found to have troponin elevations and EKG on arrival with AVR and V1 ST changes which normalized after intubation. Patient evaluated by Cardiology; concern for multi-vessel disease vs demand ischemia. Patient currently medically managed for possible ACS. Patient had worsening of respiratory status so was placed on BIPAP, steroids, and given additional diuresis. Cardiology considering TAVR. Chest pain and acute respiratory failure: Secondary to aortic stenosis. - no chest pains, up and ambulating -Appreciate cardiology following. Status post heart cath. Severe aortic stenosis. No significant CAD. -CT surgery following and planning for TAVR. Patient states she is agreeable. next week 02/16 Continue aspirin, beta-jorge, and statin. -Continue diuresis with Lasix- change to po bid -Continue Norvasc for BP -Pulmonology following -Continue supplemental oxygen and breathing treatments. TAVR rescheduled for 919 ckeared for DC by cardiology OP ff up with Pulmonary- Dr. Yo Enterobacter UTI. Recent suprapubic pain before hospitalization and multiple recent UTI's. Resolved- repeat UA negative -Monitor culture- growing entrobacter -Currently on Augmentin to complete the course of treatment. - Anxiety -Xanax scheduled and as needed Iron deficiency anemia -Ferrous Sulfate Depression -Fluoxetine DVT GI prophylaxis -SCDs -Heparin -Pepcid d/w patient and out of bed to chair tid and up and ambulating patient has home -2, walker already CM consult for home health care nursing visits DC home today OP ff up with PCP and cardiology - Time Spent with Patient Total time spent providing and/or coordinating discharge services: Greater than 30 minutes - Quality: VTE Deep Vein Thrombosis/Pulmonary Embolism Present on Admission: Yes Exam Vital signs: Vital Signs 02/08/18 09:20 02/08/18 10:00 02/08/18 12:00 Temperature 98.0 F Pulse Rate 66 64 65 Respiratory Rate 14 18 Blood Pressure 132/76 Pulse Oximetry 99 95 02/08/18 13:00 02/08/18 14:00 02/08/18 15:16 Temperature Pulse Rate 62 60 71 Respiratory Rate 18 Blood Pressure Pulse Oximetry 02/08/18 15:17 02/08/18 16:00 Temperature 98.2 F Pulse Rate 64 Respiratory Rate 18 Blood Pressure 119/56 L Pulse Oximetry 99 99 Results Procedures completed during hospitalization: 02/02 cardiac cath Labs on day of discharge: Labs from last 24 hours 02/08/18 13:00 Sodium 136 Potassium 3.6 Chloride 94 L Carbon Dioxide 33.2 H Anion Gap 9 BUN 31 H Creatinine 0.90 Estimated GFR 62 L Random Glucose 145 H Calcium 8.5 - Impressions ITS Impressions Head CT 01/30/18 19:12 CONCLUSION: Unremarkable study except for mild chronic sinusitis. Chest X-Ray 02/02/18 00:00 CONCLUSION: Improvement in the appearance of the chest. There is persistent cardiomegaly with pulmonary vascular engorgement but resolution of the previously seen infiltrates. Chest CT 02/03/18 00:00 CONCLUSION: Measurements as above Small left effusion and bibasilar atelectasis. Possible splenic infarct measuring 10 mm Discharge Plan - Discharge Disposition Patient Disposition: W/Home Health Service - Discharge Condition Condition: Stable - Discharge Order Discharge Orders: Discharge Order (Routine); Ordered 02/08/18 Ordered By: Hamlet Guerrero - Discharge Details Anticipated Discharge Date: 02/08/18 - Physicians Team Primary Care Provider: UNKNOWN, Attending Provider: Abner Mueller Other Providers: Monty Dubose MD ; Rick Martinez MD ; Samantha Campbell MD ; Emilie Adames MD
== END 2018-02-08 16:17 | disposition home health service (06) ==
LOC: PHED 18:44 → PHEDA 20:15 → HIMC 23:45 → HCIS 02-04 22:30
PROVIDERS: ADMIT Hospitalist; ATTEND Hospitalist

== ENCOUNTER 2018-02-16 07:58 | Inpatient (IN) ==
[2018-02-16] MEDS ORDERED: Aspirin 325 MG Tablet PO SCH (08:30)
[2018-02-16] MEDS ORDERED: Mupirocin 2% Nasal Oint Topical Syringe EACH NARE SCH (08:30)
[2018-02-16] MEDS ORDERED: Chlorhexidine Gluconate 2% 1 Pack (2 Cloths) TOPICAL SCH (08:30)
[2018-02-16] MEDS ORDERED: Vancomycin Inj 1,000 MG in Sodium Chlor 0.9% Inj 250 ML IV.SIG SCH (09:00)
[2018-02-16] MEDS ORDERED: Chlorhexidine Gluconate 2% 1 Pack (2 Cloths) TOPICAL ONE (09:08)
[2018-02-16] MEDS ORDERED: Metoprolol Tartrate 25 MG Tablet PO ONE (09:08)
[2018-02-16] MEDS ORDERED: Sodium Chlor 0.9% Inj 500 ML IV.SIG SCH (10:00)
[2018-02-16] MEDS ORDERED: Protamine Sulfate Inj 50 MG/5 ML Vial ONE ×2 (10:14→12:21)
[2018-02-16] MEDS ORDERED: Heparin 10,000 UNITS/10 ML Vial (for IV use) ONE (10:14)
--- NOTE | 2018-02-16 10:16 | P.HPCA ---
History of Present Illness Service: Cardiology Primary Care Physician: Natty Handy Chief Complaint: Severe aortic valve stenosis History of Present Illness: This is a 72-year-old female with history of chronic obstructive pulmonary disease and congestive heart failure who presented for evaluation secondary to severe aortic valve stenosis. Patient underwent left and right heart catheterization which revealed only mild nonobstructive coronary disease, but did reveal a severe aortic valve gradient of 65 mmHg. Patient was evaluated by cardiothoracic surgery and felt to be an intermediate risk for surgical aortic valve replacement. Transcatheter aortic valve replacement was discussed with the patient, and patient is agreeable to proceed. - Diagnosis (1) Chronic diastolic congestive heart failure, NYHA class 3 (2) Severe aortic valve stenosis Inpatient Certification: I certify that the inpatient services were ordered in accordance with Medicare regulations governing the order. This includes certification that hospital inpatient services are reasonable and necessary and in the case of services not specified as inpatient-only under 42 CFR 419.22(n), that they are appropriately provided as inpatient services in accordance to with the 2-midnight benchmark under 43 CFR 412.3(e) Review of Systems All other systems reviewed negative except as stated in HPI Cardiovascular: Denies chest pain Respiratory: Reports shortness of breath PMFSH - History History Provided By: Patient - Medical History Medical History: Medical History (Last Reviewed 02/08/18 @ 08:14 by Edgar Yates, PT) COPD (chronic obstructive pulmonary disease) (Acute) Supplemental oxygen dependent (Acute) Aortic stenosis due to bicuspid aortic valve (Acute) CHF (congestive heart failure) (Acute) Hypertension (Acute) GERD (gastroesophageal reflux disease) - Surgical History Surgical History: Surgical History (Last Updated 02/02/18 @ 18:43 by Samantha Campbell MD) Hx of laparoscopic gastric banding (Acute) - Tobacco History Second Hand Smoke Exposure: Yes Smoking Status: Never smoker - Alcohol History How Often Do You Have a Drink Containing Alcohol: Never - Substance Use History Substance History: Unable to Obtain Medications and Allergies Active Medications: Active Medications Aspirin (Aspirin) 325 mg PO [employer] [facility] Stop: 02/19/18 08:21 Chlorhexidine Gluconate (Chlorhexidine 2% Cloth) 3 pack TOPICAL [employer] [facility] Stop: 02/19/18 08:21 Sodium Chloride (Ns Inj) 1,000 mls @ 125 mls/hr IV.CONT .Q8H [facility] Vancomycin HCl 1,000 mg/ (Sodium Chloride) 250 mls @ 250 mls/hr IV.SIG [employer] [facility] Stop: 02/19/18 08:59 Lactated Ringer's (Lr 1000 Ml Inj) 1,000 mls @ 30 mls/hr IV.SIG .Q24H [facility] Stop: 02/17/18 09:14 Sodium Chloride (Ns Inj) 500 mls @ 30 mls/hr IV.SIG .Q10H [facility] Mupirocin (Bactroban 2% Nasal Oint) 1 applicatio EACH NARE [employer] [facility] Stop: 02/19/18 08:21 Povidone Iodine (Betadine 5% Antisepsis Kit) 1 applicatio [employer]ICAL [employer] [facility] Stop: 02/19/18 08:21 Allergies Allergy/AdvReac Type Severity Reaction Status Date / Time EARL Inhibitors Allergy Anaphylaxis Verified 02/16/18 08:54 Alpha 2 Adrenergic Agonist Allergy Anaphylaxis Verified 02/16/18 08:54 ARB-Angiotensin Receptor Allergy Anaphylaxis Verified 02/16/18 08:54 Antagonist cefaclor Allergy Anaphylaxis Verified 02/16/18 08:54 codeine Allergy Anaphylaxis Verified 02/16/18 08:54 hydralazine Allergy Anaphylaxis Verified 02/16/18 08:54 hydrocodone Allergy Anaphylaxis Verified 02/16/18 08:54 levofloxacin Allergy Anaphylaxis Verified 02/16/18 08:54 meperidine Allergy Anaphylaxis Verified 02/16/18 08:54 nifedipine Allergy Anaphylaxis Verified 02/16/18 08:54 pseudoephedrine Allergy Anaphylaxis Verified 02/16/18 08:[address] [facility]] Sulfa (Sulfonamide Allergy Anaphylaxis Verified 02/16/18 08:54 Antibiotics) terconazole Allergy Anaphylaxis Verified 02/16/18 08:54 topiramate Allergy Anaphylaxis Verified 02/16/18 08:54 Home Medications Medication Instructions Recorded Confirmed Type Lactobacillus acidophilus 100 mg PO DAILY 01/30/18 02/16/18 History [Acidophilus] acetylcysteine 1 inhalation DAILY 01/30/18 02/16/18 History alprazolam 1 mg PO DAILY 01/30/18 02/16/18 History amlodipine [Norvasc] 10 mg PO DAILY 01/30/18 02/16/18 History carvedilol 6.25 mg PO BID 01/30/18 02/16/18 History cetirizine 10 mg PO DAILY 01/30/18 02/16/18 History cranberry 400 mg PO DAILY 01/30/18 02/16/18 History cyanocobalamin (vitamin B-12) 1,000 mcg PO DAILY 01/30/18 02/16/18 History dicyclomine 20 mg PO QID 01/30/18 02/16/18 History dorzolamide [Trusopt] 1 drp OPHTHALMIC (EYE) TID 01/30/18 02/16/18 History ferrous sulfate 325 mg PO DAILY 01/30/18 02/16/18 History fluocinonide 1 applic TOPICAL BID 01/30/18 02/16/18 History fluoxetine [Prozac] 40 mg PO BID 01/30/18 02/16/18 History fluticasone [Flovent HFA] 1 puff INHALATION Q12H 01/30/18 02/16/18 History furosemide [Lasix] 40 mg PO BID 01/30/18 02/16/18 History gabapentin 600 mg PO TID 01/30/18 02/16/18 History hydrocortisone 1 applic TOPICAL BID 01/30/18 02/16/18 History hyoscyamine sulfate [Levsin] 0.125 mg PO QID 01/30/18 02/16/18 History ipratropium bromide [Atrovent HFA] 1 puff INHALATION Q6H 01/30/18 02/16/18 History lansoprazole [Prevacid] 30 mg PO DAILY 01/30/18 02/16/18 History levalbuterol HCl [Xopenex] 1.25 mg INHALATION Q4-6H PRN 01/30/18 02/16/18 History levothyroxine 50 mcg PO DAILY 01/30/18 02/16/18 History lidocaine HCl 1 applic TOPICAL DAILY PRN 01/30/18 02/16/18 History melatonin 10 mg PO HS PRN 01/30/18 02/16/18 History metronidazole 1 applic TOPICAL DAILY 01/30/18 02/16/18 History mometasone [Elocon] 1 applic TOPICAL DAILY 01/30/18 02/16/18 History mometasone [Nasonex] 2 spray INTRANASAL DAILY 01/30/18 02/16/18 History montelukast [Singulair] 10 mg PO QPM 01/30/18 02/16/18 History multivitamin 1 tab PO DAILY 01/30/18 02/16/18 History omega 1-pts-zgv-fish oil [[place]-3] 1 tab PO DAILY 01/30/18 02/16/18 History ondansetron HCl 4 mg PO Q6-8H PRN 01/30/18 02/16/18 History potassium chloride [Klor-Con M20] 20 meq PO BID 01/30/18 02/16/18 History pravastatin [Pravachol] 40 mg PO DAILY 01/30/18 02/16/18 History ramelteon [Rozerem] 1 tab PO DAILY 01/30/18 02/16/18 History ropinirole [Requip] 0.25 mg PO TID 01/30/18 02/16/18 History spironolactone [Aldactone] 1 tab PO DAILY 01/30/18 02/16/18 History temazepam [Restoril] 1 tab PO HS PRN 01/30/18 02/16/18 History ziprasidone HCl [Geodon] 40 mg PO BID 01/30/18 02/16/18 History Exam Vital signs: Vital Signs 02/16/18 09:04 Temperature 97.9 F Pulse Rate 59 L Respiratory Rate 18 Blood Pressure 154/67 H Pulse Oximetry 98 Intake & Output 02/15/18 02/16/18 02/16/18 18:59 06:59 18:59 Weight 93 kg Other: Weight On Admission 93 kg - Constitutional no acute distress - Routine HEENT Exam Head: Present: normocephalic, atraumatic Eye: Present: EOMI, PERRL ENT: Present: mucous membranes moist - Routine Neck Exam Absent: JVD, carotid bruit - Routine Respiratory Exam Present: CTA bilaterally - Routine Cardiovascular Exam Present: RRR, S1, S2, murmur - Routine Abdominal Exam Present: soft, normoactive bowel sounds - Routine Extremities Exam Absent: cyanosis, clubbing, edema - Routine Neurological Exam Present: alert, oriented X3, CN II-XII intact, sensory deficit, motor deficit Results Intake and Output 02/15/18 02/16/18 02/16/18 22:59 06:59 14:59 Other: Weight 93 kg Weight On Admission 93 kg Patient Weight 02/17/18 06:59 Weight 93 kg EKG interpretations - Dysrhythmias Sinus rhythms and dysrhythmias: sinus rhythm - Blocks, axis, hypertrophy, ST abn AV and intraventricular conduction: 1 AV block Caprini VTE Risk Assessment Caprini VTE Risk Assessment: Moderate/High Risk (score >= 2) Caprini Risk Assessment Model: Point Value = 1 Point Value = 2 Point Value = 3 Point Value = 5 Age 41-60 Minor surgery BMI > 25 kg/m2 Swollen legs Varicose veins or History of unexplained or recurrent spontaneous Oral contraceptives or hormone replacement Sepsis (< 1 month) Serious lung disease, including pneumonia (< 1 month) Abnormal pulmonary function Acute myocardial infarction Congestive heart failure (< 1 month) History of inflammatory bowel disease Medical patient at bed rest Age 61-74 Arthroscopic surgery Major open surgery (> 45 min) Laparoscopic surgery (> 45 min) Malignancy Confined to bed (> 72 hours) Immobilizing plaster cast Central venous access Age >= 75 History of VTE Family history of VTE Factor V Leiden Prothrombin [id number] Lupus anticoagulant Anticardiolipin antibodies Elevated serum homocysteine Heparin-induced thrombocytopenia Other congenital or acquired thrombophilia Stroke (< 1 month) Elective arthroplasty Hip, pelvis, or leg fracture Acute spinal cord injury (< 1 month) Prophylaxis Regimen: Total Risk Factor Score Risk Level Prophylaxis Regimen 0-1 Low Early ambulation 2 Moderate Order ONE of the following: *Sequential Compression Device (SCD) *Heparin 5000 units SQ BID 3-4 Higher Order ONE of the following medications: *Heparin 5000 units SQ TID *Enoxaparin/Lovenox 40 mg SQ daily (WT < 150 kg, CrCl > 30 mL/min) *Enoxaparin/Lovenox 30 mg SQ daily (WT < 150 kg, CrCl > 10-29 mL/min) *Enoxaparin/Lovenox 30 mg SQ BID (WT < 150 kg, CrCl > 30 mL/min) AND/OR *Sequential Compression Device (SCD) 5 or more Highest Order ONE of the following medications: *Heparin 5000 units SQ TID (Preferred with Epidurals) *Enoxaparin/Lovenox 40 mg SQ daily (WT < 150 kg, CrCl > 30 mL/min) *Enoxaparin/Lovenox 30 mg SQ daily (WT < 150 kg, CrCl > 10-29 mL/min) *Enoxaparin/Lovenox 30 mg SQ BID (WT < 150 kg, CrCl > 30 mL/min) AND *Sequential Compression Device (SCD) Assessment and Plan - Assessment (1) Chronic diastolic congestive heart failure, NYHA class 3 Code(s): I50.32 - Chronic diastolic (congestive) heart failure Status: Acute (2) Severe aortic valve stenosis Code(s): I35.0 - Nonrheumatic aortic (valve) stenosis Status: Acute - Plan This is a 72-year-old female with history of severe aortic valve stenosis, diastolic congestive heart failure with progressive shortness of breath and chest pain symptoms consistent with [place] [employer] functional class III. Patient is here today for elective transcatheter aortic valve replacement. Preoperative workup: STS score 3.2% [place] [employer] functional class III4 symptoms Body mass index 41.5 / frailty score Electrocardiogram from January 31, 2018 shows sinus bradycardia with first- degree AV block Pulmonary function test from February 03, 2018 shows moderate to severe early obstructive lung disease with FEV1 of 0.83 Transthoracic echocardiogram February 01, 2018 shows peak jet velocity 4.7 m/s, mean gradient 52 mmHg, calculated aortic valve area 1.1 cm, left ventricular ejection fraction 55-60%, mild aortic valve insufficiency, moderate mitral regurgitation, and trace tricuspid regurgitation Hernia catheterization from January 19, 2018 reveals mild nonobstructive coronary disease Computed tomographic analysis from January 20, 2018 shows a short annulus diameter 23.2 mm, long anus diameter 34.5 mm, annular area of 447.8 mm, sinus of Valsalva diameter 30.5 mm, sinotubular junction diameter, 20.6 mm, left coronary height 13.2 mm, right coronary height 20.6 mm, implant angle right anterior oblique 7/caudal 5 Right iliac system has minimal luminal diameter 7.7 mm and left of 7.2 mm Respective alternatives were discussed with the patient patient is agreeable to proceed. We will plan for deployment of a 26 mm AP and Vergara S3 bioprosthetic valve from a right common femoral approach.
[2018-02-16 10:37] LABS: Baso % (Auto) 0.2 % (0.0-2.0); Eos # (Auto) 0.2 th/mm3 (0.0-0.4); Eos % (Auto) 1.4 % (0.0-4.0); Hematocrit 32.7 % (35.0-46.0); Hemoglobin 11.2 gm/dL (11.6-15.3); Lymph # (Auto) 1.9 th/mm3 (1.0-4.8); Mean Corpuscular HGB Conc 34.3 % (32.0-36.0); Mean Corpuscular Volume 90.4 fL (80.0-100.0); Mono % (Auto) 7.7 % (0.0-8.0); Neut # (Auto) 9.5 th/mm3 (1.8-7.7); Neut % (Auto) 75.7 % (16.0-70.0); Platelet Count 178 th/mm3 (150-450); Red Blood Count 3.62 mil/mm3 (4.00-5.30); Red Cell Distribution Width 14.6 % (11.6-17.2); White Blood Count 12.6 th/mm3 (4.0-11.0)
[2018-02-16 10:46] LABS: Activated Partial Thrombo Time 21.5 sec (24.3-30.1); INR 1.1 Ratio; Prothrombin Time 10.9 sec (9.8-11.6)
[2018-02-16 11:00] LABS: Calcium 8.5 mg/dL (8.5-10.1); Carbon Dioxide 31.9 meq/L (21.0-32.0); Potassium 3.3 meq/L (3.5-5.1)
[2018-02-16] MEDS ORDERED: Neostigmine Inj 5 MG/5 ML Syringe IV.PUSH ONE (11:00)
[2018-02-16] MEDS ORDERED: Glycopyrrolate Inj 1 MG/5 ML Syringe IV.PUSH ONE (11:00)
[2018-02-16] MEDS ORDERED: Lidocaine PF 1% Inj 5 ML Syringe OTHER ONE (11:00)
[2018-02-16 11:45] LABS: Bacteria,Urine Occasional /hpf; Bilirubin,Urine Negative (Negative); Clarity,Urine Hazy (Clear); Color,Urine Yellow (Yellw/Straw); Glucose,Urine (UA) Negative (Negative); Hyaline Casts,Urine 8 /lpf (0-3); Leukocyte Esterase,Urine Negative (Negative); Mucus,Urine Few /lpf (Occasional); Nitrite,Urine Negative (Negative); Specific Gravity,Urine 1.016 (1.002-1.035); Squamous Epithelial Cell,Urine <1 /hpf (0-5)
[2018-02-16] MEDS ORDERED: Iohexol Inj 350 MG/ML 100 ML Bottle (for RAD Diag) IVCONTRAST ONE (12:28)
[2018-02-16] MEDS ORDERED: Acetaminophen 325 MG Tablet PO PRN (12:38)
[2018-02-16] MEDS ORDERED: Atropine Inj 1 MG/ML Vial IV.PUSH PRN (12:38)
[2018-02-16] MEDS ORDERED: Sod Chloride 0.9% Inj 1,000 ML IV.CONT SCH (12:45)
--- NOTE | 2018-02-16 12:56 | P.OP ---
- Preoperative Diagnosis (1) Diastolic heart failure (2) Aortic valvar stenosis - Postoperative Diagnosis (1) Aortic valvar stenosis (2) Chronic diastolic congestive heart failure, NYHA class 3 (3) Diastolic heart failure Date of procedure: 02/16/18 Procedure: Transcatheter aortic valve replacement with a 26 Natalie 3 tissue valve Balloon aortic valvuloplasty with a 23 x 4 Vergara balloon Percutaneous bilateral femoral artery access with Perclose closure on the right. Percutaneous left femoral venous access Aortography Fluoroscopy Implants: 26 Natalie 3 tissue valve Anesthesia: GETA Surgeon: Samantha Campbell MD Co-surgeon - Dr. Fox Compensation Agent: Monty Dubose Pathology: none sent Operation and Findings: The risks, benefits, complications, treatment options, and expected outcomes were discussed with the patient. The possibilities of reaction to medication, pulmonary aspiration, perforation of viscus, bleeding, recurrent infection, the need for additional procedures, failure to diagnose a condition, and creating a complication requiring transfusion or operation were discussed with the patient. The patient concurred with the proposed plan, giving informed consent. The site of surgery properly noted/marked. The patient was taken to hybrid operating room, identified as Tomas Ornelas and the procedure verified as Transcatheter Aortic Valve Replacement. A Time Out was held and the above information confirmed. Standard monitoring lines and Gupta catheter were placed. General anesthesia was induced. The patient was prepped and draped in a sterile fashion. Initially, left femoral arterial and venous access was acquired using a Seldinger percutaneous technique. The details of this procedure were dictated under separate note by cardiology. Once a pigtail was positioned in the aortic annulus and a temporary transvenous pacemaker wire was placed in the right ventricular apex and tested, the right femoral artery was accessed using a needle followed by a guidewire under fluoroscopic guidance. The patient was heparinized and 2 Perclose devices deployed for later closure. Serial dilators were used to dilate the right femoral artery to 14 Tajik caliber. The Vergara sheath was then inserted up to the distal abdominal aorta. Arch aortography was performed to define the implant view. A balloon aortic valvuloplasty was then performed using a 23 x 4 balloon with the patient being paced at 180 beats per minute. A 26 Vergara Natalie 3 transcatheter aortic valve was then positioned in the annulus and deployed with the patient being paced at 180 beats per minute. Following deployment, the valve apparatus was withdrawn and arch aortography and AMANDA were performed to assess the valve. The valve had no significant perivalvular leaks. Gradients were then measured and the sheath was removed. Perclose sutures were secured with good hemostasis. Protamine was administered. Sterile dressings were placed. At the end of the operation, all sponge, instruments, and needle counts were correct. The patient was transferred to the CVICU in stable condition. Findings: Uneventful deployment with no PVL Implants: 26 Natalie 3 tissue valve Complications: none
--- NOTE | 2018-02-16 12:59 | P.PCN ---
Date of procedure: 02/16/18 Pre-op diagnosis: Severe aortic valve stenosis Procedure: Procedures performed; 1. Fluoroscopy interpretation 2. Ascending aortography 3. Left heart catheterization 4. Transvenous temporary pacemaker placement 5. Transesophageal echocardiogram 6. Aortic valvuloplasty 7. Transcatheter aortic valve replacement Method: Respective alternatives were discussed with the patient patient understood consented to the procedure. Patient was brought into the operating room and placed in the operating table. Bilateral groins were prepped chest was prepped. A 5 Argentine 11 cm sheath was placed a left femoral artery and a 5 Argentine 11 cm sheath was placed left femoral vein. Right common femoral artery access was obtained with a micropuncture sheath. Digital subtraction angiography confirmed appropriate placement. 2 Perclose devices were deployed in the preclosed manner. A Argentine sheath was advanced into the right common femoral artery and upsized to a 14 Argentine Vergara sheath. Transesophageal echocardiogram: Separate detailed report Transvenous temporary pacemaker placement: Right internal jugular access was obtained 5 Argentine balloontipped temporary transvenous pacemaker was advanced to the right ventricular apex. Appropriate pacing was confirmed and utilized throughout the procedure. Left heart catheterization: 5 Argentine AL-1 catheters venous ascending aorta Amplatz straight tip 0.035 inch 260 cm wire was then advanced across the aortic valve without difficulty the AL- 1 catheter was advanced into the left ventricle 0.035 inch 260 cm standard J- wire was advanced into the left ventricular apex and the AL-1 catheter removed. A 5 Argentine angled pigtail catheter was advanced into the apex of left ventricle and the J-wire removed. A Medtronic Confida wire was advanced to the left ventricular apex and the pigtail catheter removed. Heparin was administered throughout the entire procedure to maintain appropriate anticoagulation. Aortic valvuloplasty: A 23 mm Vergara aortic valvuloplasty balloon was advanced over the Medtronic wire to the level of the aortic valve. Under rapid pacing aortic valvuloplasty was performed. Repeat transesophageal echocardiogram revealed mild aortic insufficiency. Transcatheter aortic valve replacement: A 26 mm Medtronic Natalie S3 transcatheter aortic valve was prepped and advanced over the Medtronic wire to the level of the aortic valve. Under rapid pacing and descending aortogram the device was deployed in appropriate position. Repeat transesophageal echocardiogram revealed no gradient or aortic insufficiency. The MANNY wire with pigtail catheter was removed. The device was removed the sheath was removed. 2 Perclose devices and a 8 Argentine Angio-Seal were utilized for good hemostasis of the right common femoral artery. 2 Vascade devices were deployed in the left common femoral artery and vein with good hemostasis. Plan: Patient be monitored closely for any postprocedural complications. Will consult electrophysiology. Patient heart rhythm was stable throughout the procedure. We will give the patient aspirin, Plavix, and guideline directed medical therapy. Will have a follow-up transthoracic echocardiogram. Will monitor closely for any bleeding. We will transferred to the cardiovascular intensive care unit for recovery. Surgeon: Leonardo Fox Hydro Plant Technician: Samantha Campbell (Interventional cardiology, nurse's assistant, Monty Dubose MD)
[2018-02-16] MEDS ORDERED: fentaNYL Citrate Inj 100 MCG/2 ML Ampul ONE (13:19)
[2018-02-16] MEDS: Sod Chloride 0.9% Inj 1,000 ML IV.CONT SCH ×2 (13:31→18:26)
[2018-02-16] MEDS ORDERED: Benzocaine/Menthol 15 MG/3.6 MG SF Lozenge BUCCAL PRN (14:00)
[2018-02-16] MEDS ORDERED: Iohexol 350 MG/ML 100 ML Vial (for Cath Lab) IVCONTRAST ONE (14:31)
[2018-02-16] MEDS ORDERED: Gelatin 12 MM/7 MM Topical Foam ONE ×2 (15:06→17:11)
--- NOTE | 2018-02-16 16:29 | ECHRPT ---
Indication: CONCLUSIONS Status post perioperative bioprosthetic transcatheter aortic valve replacement. BP: / HR: Rhythm: Technical Quality: Medications Complications Proc. Components The patient was brought to the diagnostic imaging area in a fasting state after o btaining an informed consent. The patient was premedicated with IV Versed and IV Fentanyl. The sales operations specialist ior pharynx was sprayed with Cetacaine spray and the patient was administered viscous Xylocaine 2 %. The AMANDA probe was passed into the posterior pharynx , mid-esophagus, distal esophagus, and gastric fundus. AMANDA was performed at multiple levels. The patient tolerated the procedure well and there were no complications. The patient was transferred to the floor in satisfactory condition.. FINDINGS LEFT VENTRICLE Normal left ventricular size and wall thickness. The left ventricular systolic function is normal wi th an estimated ejection fraction in the range of 60-65%. Left ventricular diastolic function parameters a re normal. RIGHT VENTRICLE Normal right ventricular size and systolic function. LEFT ATRIUM The left atrial size is normal. RIGHT ATRIUM The right atrial size is normal. ATRIAL SEPTUM Normal atrial septal thickness without atrial level shunting by limited color doppler interrogation. AORTA The aortic root and proximal ascending aorta are normal in size on limited imaging. MITRAL VALVE Structurally normal mitral valve. No mitral valve stenosis or regurgitation. AORTIC VALVE Trileaflet aortic valve. Mild thickening of the aortic valve leaflets. Diffuse calcification of the aortic valve. Trace aortic valve regurgitation. Severe aortic valve stenosis. Status post perioperative bioprosthetic transcatheter aortic valve replacement TRICUSPID VALVE Structurally normal tricuspid valve. No tricuspid valve stenosis or regurgitation. VESSELS The inferior vena cava is normal in size. PULMONARY VALVE The pulmonary valve is not well visualized. PERICADIUM No pericardial effusion. Leonardo Fox MD, FACC (Electronically Signed) Final Date:16 February 2018 16:28
--- NOTE | 2018-02-16 17:12 | P.PCN ---
Date of procedure: 02/16/18 Pre-op diagnosis: severe aortic stenosis Post-op diagnosis: same Procedure: Procedure: Transesophageal Echocardiography Diagnosis: Severe aortic stenosis Indications: Perioperative planning for transcatheter aortic valve replacement Consent: Obtained Anesthesia: General endotracheal anesthesia Description of the Procedure: The patient was sedated and mechanically ventilated. The echo probe was inserted easily and without resistance. At the conclusion of the procedure, the echo probe was removed. Please see detailed echocardiogram report for formal findings. Preliminary Findings (not confirmed): pre-Procedure: 1) normal biventricular function 2) severe aortic stenosis 3) mild aortic regurgitation 4) no pericardial effusion 5) no evidence of intra-atrial shunting by color flow Doppler post-procedure: 1) s/p successful placement of transcatheter aortic valve 2) no evidence of bioprosthetic valve stenosis 3) no perivalvular leak 4) no pericardial effusion The patient tolerated the procedure well with no hemodynamic instability. There were no immediate complications noted. There was minimal EBL. I personally performed the procedure.
--- NOTE | 2018-02-16 17:17 | P.CON ---
History of Present Illness Service: Critical care medicine Consult date: 02/16/18 Requesting Physician: Monty Dubose Reason for Consult: perioperative management of medical comorbidities Primary Care Provider: Sebastián Handy Chief Complaint: Severe aortic valve stenosis History of Present Illness: This is a 72-year-old female with severe aortic stenosis and history of severe congestive heart failure exacerbations who presents for elective transcatheter aortic valve replacement. She underwent uncomplicated placement. She arrives to the CVICU extubated in stable condition arousing from anesthesia. Due to her arousal from anesthesia, complete review of systems is unobtainable. Limited review of systems is negative for chest pain, shortness of breath, headache, sore throat, nausea, vomiting. Review of Systems All other systems reviewed negative except as stated in HPI PMFSH - History History Provided By: Patient - Medical History Medical History: Medical History (Last Reviewed 02/16/18 @ 17:13 by Micah Avalos MD) COPD (chronic obstructive pulmonary disease) (Acute) Supplemental oxygen dependent (Acute) Aortic stenosis due to bicuspid aortic valve (Acute) CHF (congestive heart failure) (Acute) Hypertension (Acute) GERD (gastroesophageal reflux disease) - Surgical History Surgical History: Surgical History (Last Reviewed 02/16/18 @ 17:13 by Micah Avalos MD) Hx of laparoscopic gastric banding (Acute) - Family History Family History: Family History (Last Updated 02/16/18 @ 17:13 by Micah Avalos MD) Other Family history non-contributory - Social History I have reviewed the patient's Social History: Yes - Tobacco History Second Hand Smoke Exposure: Yes Smoking Status: Never smoker - Alcohol History How Often Do You Have a Drink Containing Alcohol: Never - Substance Use History Substance History: Unable to Obtain Medications and Allergies Active Medications: Active Medications Acetaminophen (Tylenol) 650 mg PO Q4H PRN PRN Reason: PAIN SCALE 1 TO 2 Stop: 02/17/18 12:37 Aspirin (Aspirin Chew) 81 mg PO DAILY SLOANE Atropine Sulfate (Atropine Inj) 0.5 mg IV.PUSH UNSCH PRN PRN Reason: VAGAL REPONSE Stop: 02/17/18 12:37 Benzocaine/Menthol (Cepacol Max Strength) 1 lozenge BUCCAL Q3H PRN PRN Reason: SORE THROAT Stop: 02/17/18 13:59 Chlorhexidine Gluconate (Chlorhexidine 2% Cloth) 3 pack TOPICAL SENIOR SALES REPRESENTATIVE [facility] Stop: 02/19/18 08:21 Clonidine HCl (Catapres) 0.2 mg PO Q6H PRN PRN Reason: SBP > 160 mmHg Clopidogrel Bisulfate (Plavix) 75 mg PO DAILY [facility] Sodium Chloride (Ns Inj) 1,000 mls @ 125 mls/hr IV.CONT .Q8H [facility] Last Admin: 02/16/18 13:31 Dose: Not Given Vancomycin HCl 1,000 mg/ (Sodium Chloride) 250 mls @ 250 mls/hr IV.SIG SENIOR SALES REPRESENTATIVE [facility] Stop: 02/19/18 08:59 Last Infusion: 02/16/18 13:45 Dose: Infused Lactated Ringer's (Lr 1000 Ml Inj) 1,000 mls @ 30 mls/hr IV.SIG .Q24H [facility] Stop: 02/17/18 09:14 Last Admin: 02/16/18 13:31 Dose: Not Given Sodium Chloride (Ns Inj) 500 mls @ 30 mls/hr IV.SIG .Q10H [facility] Last Admin: 02/16/18 13:31 Dose: Not Given Mupirocin (Bactroban 2% Nasal Oint) 1 applicatio EACH NARE SENIOR SALES REPRESENTATIVE [facility] Stop: 02/19/18 08:21 Ondansetron HCl (Zofran Inj) 4 mg IV.PUSH ONCE PRN PRN Reason: NAUSEA OR VOMITING Oxycodone/Acetaminophen (Percocet 5/325 Mg) 1 tab PO Q6H PRN PRN Reason: PAIN SCALE 3 TO 5 Povidone Iodine (Betadine 5% Antisepsis Kit) 1 applicatio TOPICAL SENIOR SALES REPRESENTATIVE [facility] Stop: 02/19/18 08:21 Allergies Allergy/AdvReac Type Severity Reaction Status Date / Time EARL Inhibitors Allergy Anaphylaxis Verified 02/16/18 08:54 Alpha 2 Adrenergic Agonist Allergy Anaphylaxis Verified 02/16/18 08:54 ARB-Angiotensin Receptor Allergy Anaphylaxis Verified 02/16/18 08:54 Antagonist cefaclor Allergy Anaphylaxis Verified 02/16/18 08:54 codeine Allergy Anaphylaxis Verified 02/16/18 08:54 hydralazine Allergy Anaphylaxis Verified 02/16/18 08:54 hydrocodone Allergy Anaphylaxis Verified 02/16/18 08:54 levofloxacin Allergy Anaphylaxis Verified 02/16/18 08:54 meperidine Allergy Anaphylaxis Verified 02/16/18 08:54 nifedipine Allergy Anaphylaxis Verified 02/16/18 08:54 pseudoephedrine Allergy Anaphylaxis Verified 02/16/18 08:54 [From Sudafed] Sulfa (Sulfonamide Allergy Anaphylaxis Verified 02/16/18 08:54 Antibiotics) terconazole Allergy Anaphylaxis Verified 02/16/18 08:54 topiramate Allergy Anaphylaxis Verified 02/16/18 08:54 Home Medications Medication Instructions Recorded Confirmed Type Lactobacillus acidophilus 100 mg PO DAILY 01/30/18 02/16/18 History [Acidophilus] acetylcysteine 1 inhalation DAILY 01/30/18 02/16/18 History alprazolam 1 mg PO DAILY 01/30/18 02/16/18 History amlodipine [Norvasc] 10 mg PO DAILY 01/30/18 02/16/18 History carvedilol 6.25 mg PO BID 01/30/18 02/16/18 History cetirizine 10 mg PO DAILY 01/30/18 02/16/18 History cranberry 400 mg PO DAILY 01/30/18 02/16/18 History cyanocobalamin (vitamin B-12) 1,000 mcg PO DAILY 01/30/18 02/16/18 History dicyclomine 20 mg PO QID 01/30/18 02/16/18 History dorzolamide [Trusopt] 1 drp OPHTHALMIC (EYE) TID 01/30/18 02/16/18 History ferrous sulfate 325 mg PO DAILY 01/30/18 02/16/18 History fluocinonide 1 applic TOPICAL BID 01/30/18 02/16/18 History fluoxetine [Prozac] 40 mg PO BID 01/30/18 02/16/18 History fluticasone [Flovent HFA] 1 puff INHALATION Q12H 01/30/18 02/16/18 History furosemide [Lasix] 40 mg PO BID 01/30/18 02/16/18 History gabapentin 600 mg PO TID 01/30/18 02/16/18 History hydrocortisone 1 applic TOPICAL BID 01/30/18 02/16/18 History hyoscyamine sulfate [Levsin] 0.125 mg PO QID 01/30/18 02/16/18 History ipratropium bromide [Atrovent HFA] 1 puff INHALATION Q6H 01/30/18 02/16/18 History lansoprazole [Prevacid] 30 mg PO DAILY 01/30/18 02/16/18 History levalbuterol HCl [Xopenex] 1.25 mg INHALATION Q4-6H PRN 01/30/18 02/16/18 History levothyroxine 50 mcg PO DAILY 01/30/18 02/16/18 History lidocaine HCl 1 applic TOPICAL DAILY PRN 01/30/18 02/16/18 History melatonin 10 mg PO HS PRN 01/30/18 02/16/18 History metronidazole 1 applic TOPICAL DAILY 01/30/18 02/16/18 History mometasone [Elocon] 1 applic TOPICAL DAILY 01/30/18 02/16/18 History mometasone [Nasonex] 2 spray INTRANASAL DAILY 01/30/18 02/16/18 History montelukast [Singulair] 10 mg PO QPM 01/30/18 02/16/18 History multivitamin 1 tab PO DAILY 01/30/18 02/16/18 History omega 1-lqb-ogl-fish oil [[place]-3] 1 tab PO DAILY 01/30/18 02/16/18 History ondansetron HCl 4 mg PO Q6-8H PRN 01/30/18 02/16/18 History potassium chloride [Klor-Con M20] 20 meq PO BID 01/30/18 02/16/18 History pravastatin [Pravachol] 40 mg PO DAILY 01/30/18 02/16/18 History ramelteon [Rozerem] 1 tab PO DAILY 01/30/18 02/16/18 History ropinirole [Requip] 0.25 mg PO TID 01/30/18 02/16/18 History spironolactone [Aldactone] 1 tab PO DAILY 01/30/18 02/16/18 History temazepam [Restoril] 1 tab PO HS PRN 01/30/18 02/16/18 History ziprasidone HCl [Geodon] 40 mg PO BID 01/30/18 02/16/18 History Physical Exam Vital signs: Vital Signs 02/16/18 09:04 02/16/18 13:08 02/16/18 13:25 Temperature 36.6 C 36.4 C L Pulse Rate 59 L 53 L 52 L Respiratory Rate 18 18 Blood Pressure 154/67 H 151/38 H Pulse Oximetry 98 100 100 02/16/18 13:30 02/16/18 15:00 Temperature 36.9 C Pulse Rate 52 L Respiratory Rate 18 Blood Pressure 153/59 H Pulse Oximetry 100 100 Intake & Output 02/15/18 02/16/18 02/16/18 18:59 06:59 18:59 Intake Total 1250 / 1250 Output Total 305 / 305 Balance 945 / 945 Weight 93 kg Intake: IV 250 / 250 Vancomycin Inj 1,000 MG In NS 250 / 250 Inj 250 ML @ 250 mls/hr IV.SIG SENIOR SALES REPRESENTATIVE [facility] Rx#:[id number] Anesthesia Amount 1000 / 1000 Output: Estimated Blood Loss 5 / 5 Urine Amount (Catheter) 300 / 300 Indwelling Temp Sensing 300 / 300 Catheter Other: Weight On Admission 93 kg Narrative: GENERAL: Frail elderly female lying in bed, arousing from anesthesia HEENT: Normocephalic. Atraumatic. Pupils equal, round, reactive, conjugate. Mucous membranes are moist NECK: Trachea is midline. There is no JVD. right IJ introducer sheath with transvenous pacer in place, site is clean and dry, dressing intact. CHEST: unlabored. equal chest rise. nc o2. CARDIOVASCULAR: normal rate, regular rhythm. Transvenous pacer is set VVI at a backup rate of 50. not currently paced. ABDOMEN: Soft, nontender, nondistended. No guarding. MUSCULOSKELETAL: Pulses 2+. No peripheral edema. bilateral groin sites are clean and dry, no evidence of hematoma, dressing intact. distal LE pulses are Dopplerable. NEUROLOGICAL: RASS -2. Arousing from anesthesia. follows commands. moves all extremities. no focal deficits. - Urinary Catheter Management Indwelling Temp Sensing Catheter Cath placed during this visit: yes Reason for continuing: Hourly intake/output Insertion date: 02/16/18 Insertion time: 11:17 Assessment and Plan - Plan Assessment: 72-year-old female postop day 0 status post transcatheter aortic valve replacement. Admit ICU for frequent neurovascular checks and close monitoring. s/p TAVR today via groin access - anticoagulation per hygiene coordinator - mivf - close uop monitoring - frequent neurovascular checks - frequent groin checks - OOB after flat time Hypertension - goal sbp < 180 - add back antihypertensives as needed COPD - nebs - wean o2 by nc for goal spo2 > 90% - OOB after flat time - aggressive pulmonary toilet Congestive Heart Failure secondary to valvulopathy - mivf today - may need diuresis beginning after POD 1 Hyperlipidemia - restart home statin GERD - restart home ppi Hypothyroidism - restart home synthroid advance diet after flat time SCDs AM CBC, BMP Critical care medicine will continue to follow while patient remains in the CVICU.
[2018-02-16] MEDS ORDERED: Potassium Chloride 25 MEQ Effervescent Tablet PO PRN (17:18)
[2018-02-16] MEDS ORDERED: Sodium Phosphate Inj 30 MMOL in Sodium Chlor 0.9% Inj 250 ML IV.SIG PRN (17:18)
[2018-02-16] MEDS ORDERED: Potassium Chlor 20 mEq Premix 20 MEQ/100 ML PIGGYBACK IV.SIG PRN ×2 (17:18)
[2018-02-16] MEDS ORDERED: Potassium Phosphate 500 MG Soluble Tablet PO PRN ×2 (17:18)
[2018-02-16] MEDS ORDERED: Potassium Phosphate Inj 30 MMOL in Sodium Chlor 0.9% Inj 250 ML IV.SIG PRN (17:18)
[2018-02-16] MEDS ORDERED: Magnesium Sulfate Inj 2 GM in Sodium Chlor 0.9% Inj 96 ML IV.SIG PRN (17:18)
[2018-02-16] MEDS ORDERED: Magnesium Oxide 400 MG Tablet PO PRN (17:18)
[2018-02-16] MEDS ORDERED: Potassium Chlor 40 mEq Premix 40 MEQ/100 ML PIGGYBACK IV.SIG PRN ×2 (17:18)
[2018-02-16] MEDS ORDERED: Magnesium Sulfate Inj 4 GM in Sodium Chlor 0.9% Inj 92 ML IV.SIG PRN (17:18)
--- NOTE | 2018-02-16 20:16 | ECG ---
Date Performed: 02/16/2018 Time Performed: 08:31:26 PTAGE: 72 years EKG: Sinus rhythm with borderline 1st degree A-V block. Left ventricular hypertrophy Extensive ST-T changes are probab ly due to ventricular hypertrophy Abnormal ECG PREVIOUS TRACING : 01/31/2018 06.58 Since the previous tracing, no significant change noted DOCTOR: Kathryn Calixto Interpretating Date/Time 02/16/2018 20:15:51
[2018-02-16] MEDS ORDERED: Melatonin 5 MG Tablet PO SCH (21:00)
[2018-02-16] MEDS ORDERED: Montelukast 10 MG Tablet PO SCH (21:00)
[2018-02-16] MEDS ORDERED: RAMELTEON 8 MG PO SCH (21:00)
[2018-02-16] MEDS: FLUoxetine 20 MG Capsule PO SCH (21:03)
[2018-02-16] MEDS: Carvedilol 6.25 MG Tablet PO SCH (21:04)
[2018-02-16] MEDS: Gabapentin 300 MG Capsule PO SCH (21:04)
--- NOTE | 2018-02-16 22:01 | ECG ---
Date Performed: 02/16/2018 Time Performed: 13:25:52 PTAGE: 72 years EKG: Sinus bradycardia with borderline 1st degree A-V block ST-T changes are nonspecific Abnorma l ECG Since the PREVIOUS TRACING , no significant change noted DOCTOR: Kathryn Calixto Interpretating Date/Time 02/16/2018 22:01:18
[2018-02-17 05:34] LABS: Hematocrit 30.3 % (35.0-46.0); Hemoglobin 10.1 gm/dL (11.6-15.3); Mean Corpuscular HGB Conc 33.1 % (32.0-36.0); Mean Corpuscular Hemoglobin 30.4 pg (27.0-34.0); Mean Corpuscular Volume 91.6 fL (80.0-100.0); Mean Platelet Volume 8.4 fL (7.0-11.0); Platelet Count 138 th/mm3 (150-450); Red Blood Count 3.31 mil/mm3 (4.00-5.30); Red Cell Distribution Width 14.7 % (11.6-17.2); White Blood Count 12.2 th/mm3 (4.0-11.0)
[2018-02-17] MEDS ORDERED: Levothyroxine 50 MCG Tablet PO SCH (06:00)
[2018-02-17 06:07] LABS: Calcium 8.3 mg/dL (8.5-10.1); Carbon Dioxide 32.9 meq/L (21.0-32.0); Potassium 3.5 meq/L (3.5-5.1)
[2018-02-17] MEDS: Gabapentin 300 MG Capsule PO SCH ×2 (06:18→13:32)
[2018-02-17] MEDS: Sod Chloride 0.9% Inj 1,000 ML IV.CONT SCH ×2 (06:55→09:55)
--- NOTE | 2018-02-17 07:35 | MB ---
cc: Emilie Adames MD DATE: 02/16/2018 REASON FOR CONSULTATION: Evaluation for possible pacing support, status post TAVR. HISTORY OF PRESENT ILLNESS: Mrs. Ornelas is a 72-year-old female with COPD, morbid obesity, aortic stenosis, history of severe aortic stenosis, status post aortic valve replacement, who was referred for evaluation for possible conduction disease. The chart was reviewed. The patient was evaluated. ALLERGIES: EARL INHIBITOR, ALPHA-ADRENERGIC AGONIST. SOCIAL HISTORY: Negative for smoking and drinking. FAMILY HISTORY: Noncontributory to her current medical condition. MEDICATIONS: Currently Mrs. Ornelas is on: 1. Acetaminophen. 2. Amlodipine 10 mg a day. 3. Aspirin 81 mg a day. 4. Plavix 75 mg a day. 5. Coreg 6.25 mg twice a day. 6. Clonidine p.r.n. 7. Flovent inhaler. 8. Neurontin 600 mg 3 times a day. 9. Levoxyl 50 mcg a day. 10. Melatonin. 11. Magnesium. 12. Potassium. REVIEW OF SYSTEMS: Currently, she is feeling better. No chest pain or discomfort. No shortness of breath. PHYSICAL EXAMINATION: GENERAL: Alert, fully oriented. VITAL SIGNS: Blood pressure 153/59, pulse is 52, respiratory rate 18. LUNGS: Ventilated. CARDIOVASCULAR: S1, S2. No gallop. No murmur. ABDOMEN: Soft, obese. No masses. EXTREMITIES: No edema. Right jugular central line. ELECTROCARDIOGRAM: Sinus rhythm. Diffuse ST changes. LABORATORY DATA: Hemoglobin 11.2, white blood cell 12.6. INR 1.1. Potassium 3.3, creatinine 1.03. ASSESSMENT AND RECOMMENDATIONS: Mrs. Ornelas is stable. No change in the electrocardiogram and pre and post transcatheter aortic valve replacement. Sinus bradycardia. No need for pacing support, doing well. At this point, my recommendation is continue observation. The patient can be discharged home whenever it is okay with the managing team. I will be available on a p.r.n. basis. Emilie Adames MD HS/rm/ll , 05:26 PM , 05:34 PM
--- NOTE | 2018-02-17 07:56 | P.DS ---
<Milo Spence - Last Filed: 02/17/18 07:54> Date of admission: 02/16/18 07:58 Primary care physician: Sebastián Handy Attending physician on discharge: Leonardo Fox Anticipated date of discharge: 02/17/18 Brief History from admission: This is a 72-year-old female with history of chronic obstructive pulmonary disease and congestive heart failure who presented for evaluation secondary to severe aortic valve stenosis. Patient underwent left and right heart catheterization which revealed only mild nonobstructive coronary disease, but did reveal a severe aortic valve gradient of 65 mmHg. Patient was evaluated by cardiothoracic surgery and felt to be an intermediate risk for surgical aortic valve replacement. Transcatheter aortic valve replacement was discussed with the patient, and patient is agreeable to proceed. Patient update on day of discharge: Doing well overnight. No chest pain, shortness of breath. She reports some tenderness and bruising with left groin access site. Satting well on room air, reports she uses home O2. Limited echo planned for today. DS: Summary Hospital Course: 72-year-old female with a past medical history of severe aortic stenosis who is admitted for elective TAVR on 02/16/18. Patient underwent unremarkable perioperative course. - Time Spent with Patient Total time spent providing and/or coordinating discharge services: Greater than 30 minutes Exam Vital signs: Vital Signs 02/16/18 09:04 02/16/18 13:08 02/16/18 13:25 Temperature 97.9 F 97.5 F L Pulse Rate 59 L 53 L 52 L Respiratory Rate 18 18 Blood Pressure 154/67 H 151/38 H Pulse Oximetry 98 100 100 02/16/18 13:30 02/16/18 15:00 02/16/18 19:00 Temperature 98.4 F 97.7 F Pulse Rate 52 L 56 L Respiratory Rate 18 22 Blood Pressure 153/59 H 131/45 L Pulse Oximetry 100 100 98 02/16/18 20:00 02/16/18 21:21 02/16/18 23:00 Temperature 97.7 F Pulse Rate 55 L 52 L Respiratory Rate 16 22 Blood Pressure 135/55 L Pulse Oximetry 98 99 02/17/18 03:00 02/17/18 07:00 02/17/18 07:46 Temperature 98.0 F Pulse Rate 56 L 75 61 Respiratory Rate 22 16 Blood Pressure 128/62 Pulse Oximetry 99 95 Intake & Output 02/16/18 02/17/18 02/17/18 18:59 06:59 18:59 Intake Total 1969 / 1969 720 / 720 Output Total 1445 / 1445 1200 / 1200 Balance 525 / 525 -480 / -480 Weight 205 lb 0.478 oz Intake: IV 250 / 250 Vancomycin Inj 1,000 MG In NS 250 / 250 Inj 250 ML @ 250 mls/hr IV.[facility] Rx#:[id number] Oral 720 / 720 720 / 720 Anesthesia Amount 1000 / 1000 Output: Urine 1200 / 1200 Estimated Blood Loss 5 / 5 Urine Amount (Catheter) 1440 / 1440 Indwelling Temp Sensing 1440 / 1440 Catheter Other: Weight On Admission 205 lb 0.478 oz Narrative: GENERAL: Well-developed well-nourished. In no acute distress. NECK: No carotid bruits. No JVD. CARDIOVASCULAR: Regular rate and rhythm. [place] valve sounds appreciated. RESPIRATORY: No accessory muscle use. Clear to auscultation. Breath sounds equal bilaterally. MUSCULOSKELETAL: No clubbing or cyanosis. No edema. No swelling, tenderness, and intact pulse on right groin access site. Some ecchymosis and mild tenderness with intact femoral pulse on left groin access site. NEUROLOGICAL: Awake and alert. Normal speech. Results Procedures completed during hospitalization: TAVR 02/16/18 Labs on day of discharge: Labs from last 24 hours 02/17/18 02/17/18 02/16/18 04:45 04:45 11:14 WBC 12.2 H RBC 3.31 L Hgb 10.1 L Hct 30.3 L MCV 91.6 MCH 30.4 MCHC 33.1 RDW 14.7 Plt Count 138 L MPV 8.4 Neut % (Auto) Lymph % (Auto) [place] % (Auto) Eos % (Auto) Baso % (Auto) Neut # (Auto) Lymph # (Auto) [place] # (Auto) Eos # (Auto) Baso # (Auto) WBC Differential Differential Comment PT INR APTT Sodium 141 Potassium 3.5 Chloride 100 Carbon Dioxide 32.9 H Anion Gap 8 BUN 16 Creatinine 0.68 Estimated GFR 85 L Random Glucose 91 Calcium 8.3 L Urine Color Yellow Urine Clarity Hazy H Urine pH 5.0 Ur Specific [place] 1.016 Urine Protein Negative Urine Glucose (UA) Negative Urine Ketones Negative Urine Occult Blood Negative Urine Nitrate Negative Urine Bilirubin Negative Urine Urobilinogen 2.0 H Ur Leukocyte Esterase Negative Urine RBC Less than 1 Urine WBC 1 Ur Squamous Epith Cells <1 Urine Bacteria Occasional H Hyaline Casts 8 Urine Mucus Few H Micro UA Comment Cath-culture ind Ur Microscopic Review Not Reportable Urine Culture Comments Cath-cult indicated Blood Type Antibody Screen [place] Gel Crossmatch 02/16/18 02/16/18 02/16/18 10:20 10:20 10:20 WBC 12.6 H RBC 3.62 L Hgb 11.2 L Hct 32.7 L MCV 90.4 MCH 31.0 MCHC 34.3 RDW 14.6 Plt Count 178 MPV 8.0 Neut % (Auto) 75.7 H Lymph % (Auto) 15.0 [place] % (Auto) 7.7 Eos % (Auto) 1.4 Baso % (Auto) 0.2 Neut # (Auto) 9.5 H Lymph # (Auto) 1.9 [place] # (Auto) 1.0 H Eos # (Auto) 0.2 Baso # (Auto) 0.0 WBC Differential . Differential Comment Auto diff final PT 10.9 INR 1.1 APTT 21.5 L Sodium 140 Potassium 3.3 L Chloride 98 Carbon Dioxide 31.9 Anion Gap 10 BUN 30 H Creatinine 1.03 H Estimated GFR 53 L Random Glucose 134 H Calcium 8.5 Urine Color Urine Clarity Urine pH Ur Specific [place] Urine Protein Urine Glucose (UA) Urine Ketones Urine Occult Blood Urine Nitrate Urine Bilirubin Urine Urobilinogen Ur Leukocyte Esterase Urine RBC Urine WBC Ur Squamous Epith Cells Urine Bacteria Hyaline Casts Urine Mucus Micro UA Comment Ur Microscopic Review Urine Culture Comments Blood Type Antibody Screen [place] Gel Crossmatch 02/16/18 08:40 WBC RBC Hgb Hct MCV MCH MCHC RDW Plt Count MPV Neut % (Auto) Lymph % (Auto) [place] % (Auto) Eos % (Auto) Baso % (Auto) Neut # (Auto) Lymph # (Auto) [place] # (Auto) Eos # (Auto) Baso # (Auto) WBC Differential Differential Comment PT INR APTT Sodium Potassium Chloride Carbon Dioxide Anion Gap BUN Creatinine Estimated GFR Random Glucose Calcium Urine Color Urine Clarity Urine pH Ur Specific [place] Urine Protein Urine Glucose (UA) Urine Ketones Urine Occult Blood Urine Nitrate Urine Bilirubin Urine Urobilinogen Ur Leukocyte Esterase Urine RBC Urine WBC Ur Squamous Epith Cells Urine Bacteria Hyaline Casts Urine Mucus Micro UA Comment Ur Microscopic Review Urine Culture Comments Blood Type A Positive Antibody Screen Negative MTS Gel Crossmatch See Detail <RuddyLeonardo - Last Filed: 02/17/18 08:17> Date of admission: 02/16/18 07:58 Primary care physician: Sebastián Handy DS: Diagnosis - Discharge Diagnosis (1) Chronic diastolic congestive heart failure, NYHA class 3 Status: Acute (2) Severe aortic valve stenosis Status: Acute DS: Summary Hospital Course: doing well acute on chronic diastolic CHF treated with diuretic therapy severe s/p TAVR no issues ambulate DC planning for later today - Time Spent with Patient Total time spent providing and/or coordinating discharge services: Exam Vital signs: Vital Signs 02/16/18 09:04 02/16/18 13:08 02/16/18 13:25 Temperature 97.9 F 97.5 F L Pulse Rate 59 L 53 L 52 L Respiratory Rate 18 18 Blood Pressure 154/67 H 151/38 H Pulse Oximetry 98 100 100 02/16/18 13:30 02/16/18 15:00 02/16/18 19:00 Temperature 98.4 F 97.7 F Pulse Rate 52 L 56 L Respiratory Rate 18 22 Blood Pressure 153/59 H 131/45 L Pulse Oximetry 100 100 98 02/16/18 20:00 02/16/18 21:21 02/16/18 23:00 Temperature 97.7 F Pulse Rate 55 L 52 L Respiratory Rate 16 22 Blood Pressure 135/55 L Pulse Oximetry 98 99 02/17/18 03:00 02/17/18 07:00 02/17/18 07:46 Temperature 98.0 F Pulse Rate 56 L 75 61 Respiratory Rate 22 16 Blood Pressure 128/62 Pulse Oximetry 99 95 Intake & Output 02/16/18 02/17/18 02/17/18 18:59 06:59 18:59 Intake Total 1969 / 1969 720 / 720 Output Total 1445 / 1445 1200 / 1200 Balance 525 / 525 -480 / -480 Weight 93 kg Intake: IV 250 / 250 Vancomycin Inj 1,000 MG In NS 250 / 250 Inj 250 ML @ 250 mls/hr IV.SIG [facility] Rx#:[id number] Oral 720 / 720 720 / 720 Anesthesia Amount 1000 / 1000 Output: Urine 1200 / 1200 Estimated Blood Loss 5 / 5 Urine Amount (Catheter) 1440 / 1440 Indwelling Temp Sensing 1440 / 1440 Catheter Other: Weight On Admission 93 kg Results Labs on day of discharge: Labs from last 24 hours 02/17/18 02/17/18 02/16/18 04:45 04:45 11:14 WBC 12.2 H RBC 3.31 L Hgb 10.1 L Hct 30.3 L MCV 91.6 MCH 30.4 MCHC 33.1 RDW 14.7 Plt Count 138 L MPV 8.4 Neut % (Auto) Lymph % (Auto) [place] % (Auto) Eos % (Auto) Baso % (Auto) Neut # (Auto) Lymph # (Auto) [place] # (Auto) Eos # (Auto) Baso # (Auto) WBC Differential Differential Comment PT INR APTT Sodium 141 Potassium 3.5 Chloride 100 Carbon Dioxide 32.9 H Anion Gap 8 BUN 16 Creatinine 0.68 Estimated GFR 85 L Random Glucose 91 Calcium 8.3 L Urine Color Yellow Urine Clarity Hazy H Urine pH 5.0 Ur Specific [place] 1.016 Urine Protein Negative Urine Glucose (UA) Negative Urine Ketones Negative Urine Occult Blood Negative Urine Nitrate Negative Urine Bilirubin Negative Urine Urobilinogen 2.0 H Ur Leukocyte Esterase Negative Urine RBC Less than 1 Urine WBC 1 Ur Squamous Epith Cells <1 Urine Bacteria Occasional H Hyaline Casts 8 Urine Mucus Few H Micro UA Comment Cath-culture ind Ur Microscopic Review Not Reportable Urine Culture Comments Cath-cult indicated Blood Type Antibody Screen MTS Gel Crossmatch 02/16/18 02/16/18 02/16/18 10:20 10:20 10:20 WBC 12.6 H RBC 3.62 L Hgb 11.2 L Hct 32.7 L MCV 90.4 MCH 31.0 MCHC 34.3 RDW 14.6 Plt Count 178 MPV 8.0 Neut % (Auto) 75.7 H Lymph % (Auto) 15.0 [place] % (Auto) 7.7 Eos % (Auto) 1.4 Baso % (Auto) 0.2 Neut # (Auto) 9.5 H Lymph # (Auto) 1.9 [place] # (Auto) 1.0 H Eos # (Auto) 0.2 Baso # (Auto) 0.0 WBC Differential . Differential Comment Auto diff final PT 10.9 INR 1.1 APTT 21.5 L Sodium 140 Potassium 3.3 L Chloride 98 Carbon Dioxide 31.9 Anion Gap 10 BUN 30 H Creatinine 1.03 H Estimated GFR 53 L Random Glucose 134 H Calcium 8.5 Urine Color Urine Clarity Urine pH Ur Specific [place] Urine Protein Urine Glucose (UA) Urine Ketones Urine Occult Blood Urine Nitrate Urine Bilirubin Urine Urobilinogen Ur Leukocyte Esterase Urine RBC Urine WBC Ur Squamous Epith Cells Urine Bacteria Hyaline Casts Urine Mucus Micro UA Comment Ur Microscopic Review Urine Culture Comments Blood Type Antibody Screen MTS Gel Crossmatch 02/16/18 08:40 WBC RBC Hgb Hct MCV MCH MCHC RDW Plt Count MPV Neut % (Auto) Lymph % (Auto) [place] % (Auto) Eos % (Auto) Baso % (Auto) Neut # (Auto) Lymph # (Auto) [place] # (Auto) Eos # (Auto) Baso # (Auto) WBC Differential Differential Comment PT INR APTT Sodium Potassium Chloride Carbon Dioxide Anion Gap BUN Creatinine Estimated GFR Random Glucose Calcium Urine Color Urine Clarity Urine pH Ur Specific [place] Urine Protein Urine Glucose (UA) Urine Ketones Urine Occult Blood Urine Nitrate Urine Bilirubin Urine Urobilinogen Ur Leukocyte Esterase Urine RBC Urine WBC Ur Squamous Epith Cells Urine Bacteria Hyaline Casts Urine Mucus Micro UA Comment Ur Microscopic Review Urine Culture Comments Blood Type A Positive Antibody Screen Negative MTS Gel Crossmatch See Detail Discharge Plan - Discharge Order Discharge Orders: Discharge Order (Routine); Ordered 02/17/18 Ordered By: Leonardo Fox Cardiology Clear for Discharge (Routine); Ordered 02/17/18 Ordered By: Leonardo Fox - Discharge Details Anticipated Discharge Date: 02/17/18 Discharge Comment: DC this afternoon if no issues - Physicians Team Attending Provider: Leonardo Fox Other Providers: Yaya Fox MD ; Emilie Adames MD - Rxs /Orders / Referrals /Forms Prescriptions: New clopidogrel [Plavix] 75 mg Tablet 75 mg PO DAILY Qty: 30 RF: 3 Continue acetylcysteine 200 mg/mL (20 %) Solution 1 inhalation DAILY alprazolam 1 mg Tablet Extended Release 24 Hr 1 mg PO DAILY amlodipine [Norvasc] 10 mg Tablet 10 mg PO DAILY amoxicillin-pot clavulanate 875-125 mg Tablet 1 tab PO Q12HR Qty: 3 RF: 0 aspirin 81 mg Tablet,Delayed Release (Dr/Ec) 81 mg PO DAILY RF: 0 carvedilol 6.25 mg Tablet 6.25 mg PO BID cetirizine 10 mg Tablet 10 mg PO DAILY cranberry 400 mg Capsule 400 mg PO DAILY cyanocobalamin (vitamin B-12) 1,000 mcg Capsule 1,000 mcg PO DAILY dicyclomine 20 mg Tablet 20 mg PO QID dorzolamide [Trusopt] 2 % Drops 1 drp OPHTHALMIC (EYE) TID ferrous sulfate 325 mg (65 mg iron) Tablet 325 mg PO DAILY fluocinonide 0.05 % Cream 1 applic TOPICAL BID fluoxetine [Prozac] 40 mg Capsule 40 mg PO BID fluticasone [Flovent HFA] 110 mcg/actuation Hfa Aerosol Inhaler 1 puff INHALATION Q12H gabapentin 600 mg Tablet 600 mg PO TID hydrocortisone 2.5 % Cream 1 applic TOPICAL BID hyoscyamine sulfate [Levsin] 0.125 mg Tablet 0.125 mg PO QID ipratropium bromide [Atrovent HFA] 17 mcg/actuation Hfa Aerosol Inhaler 1 puff INHALATION Q6H Lactobacillus acidophilus [Acidophilus] Capsule 100 mg PO DAILY lansoprazole [Prevacid] 30 mg Capsule,Delayed Release(Dr/Ec) 30 mg PO DAILY levalbuterol HCl [Xopenex] 1.25 mg/3 mL Solution For Nebulization 1.25 mg INHALATION Q4-6H PRN (Reason: Pain) levothyroxine 50 mcg Capsule 50 mcg PO DAILY lidocaine HCl 2 % Jelly 1 applic TOPICAL DAILY PRN (Reason: Pain) melatonin 10 mg Tablet 10 mg PO HS PRN (Reason: Nausea And Vomiting) metronidazole 1 % Cream 1 applic TOPICAL DAILY mometasone [Elocon] 0.1 % Cream 1 applic TOPICAL DAILY mometasone [Nasonex] 50 mcg/actuation [place],Non-Aerosol 2 spray INTRANASAL DAILY montelukast [Singulair] 10 mg Tablet 10 mg PO QPM multivitamin Tablet 1 tab PO DAILY omega [id number] oil [[place]-3] 350 mg-235 mg- 90 mg-597 mg Capsule, Delayed Release(Dr/Ec) 1 tab PO DAILY ondansetron HCl 4 mg Tablet 4 mg PO Q6-8H PRN (Reason: Nausea) potassium chloride [Klor-Con M20] 20 mEq Tablet,Er Particles/Crystals 20 meq PO BID pravastatin [Pravachol] 40 mg Tablet 40 mg PO DAILY ramelteon [Rozerem] 8 mg Tablet 1 tab PO DAILY ropinirole [Requip] 0.25 mg Tablet 0.25 mg PO TID spironolactone [Aldactone] 25 mg Tablet 1 tab PO DAILY temazepam [Restoril] 30 mg Capsule 1 tab PO HS PRN (Reason: Sleep) ziprasidone HCl [Geodon] 40 mg Capsule 40 mg PO BID Changed furosemide [Lasix] 40 mg Tablet 20 mg PO DAILY 30 Days RF: 0 Changed from: 40 mg oral twice daily Referrals: Sebastián Handy MD [Other] - See Instructions - Discharge Instructions Patient Printed Instructions: Transcatheter Aortic Valve Replacement (DC)
[2018-02-17 08:14] VITALS: O2SAT 94
[2018-02-17] MEDS: FLUoxetine 20 MG Capsule PO SCH (08:37)
[2018-02-17] MEDS: Carvedilol 6.25 MG Tablet PO SCH (08:37)
[2018-02-17] MEDS ORDERED: Tiotropium Bromide 18 MCG/ACT Inhaler INH SCH (09:00)
[2018-02-17] MEDS ORDERED: Ferrous Sulfate 325 MG Tablet PO SCH (09:00)
[2018-02-17] MEDS ORDERED: amLODIPine 10 MG Tablet PO SCH (09:00)
[2018-02-17] MEDS ORDERED: OMEGA DHA EPA FISH OIL PO SCH (09:00)
[2018-02-17 11:22] VITALS: BP 117/53; TEMP 97.9
--- NOTE | 2018-02-17 12:03 | ECHRPT ---
Indication: POST TAVR CONCLUSIONS Wall thickness is measured at the upper limits of normal. Normal left ventricular size. Aortic valve mean pressure gradient 23 mmhg.There is trace tricuspid valve regurgitation. The estimated pulmonary arterial pressure is 40 mmHg. Transcatheter aortic valve replacement Normal function No perivalvular leak. BP: / HR: Rhythm: MEASUREMENTS (Male / Female) Normal Values Technical Quality: 2D ECHO LV Diastolic Diameter PLAX 4.4 cm 4.2 - 5.9 / 3.9 - 5.3 cm LV Systolic Diameter PLAX 3.1 cm IVS Diastolic Thickness 1.3 cm 0.6 - 1.0 / 0.6 - 0.9 cm LVPW Diastolic Thickness 1.2 cm 0.6 - 1.0 / 0.6 - 0.9 cm LV Relative Wall Thickness 0.6 RV Internal Dim ED PLAX 2.7 cm LVOT Diameter 1.7 cm M-MODE Aortic Root Diameter MM 2.6 cm LA Systolic Diameter MM 5.1 cm LA Ao Ratio MM 2.0 AV Cusp Separation MM 1.7 cm DOPPLER AV Peak Velocity 306.3 cm/s AV Peak Gradient 37.5 mmHg AV Mean Gradient 22.7 mmHg AV Velocity Time Integral 63.2 cm LVOT Peak Velocity 105.0 cm/s LVOT Peak Gradient 4.4 mmHg LVOT Velocity Time Integral 18.9 cm AV Area Cont Eq vti 0.6 cm AV Area Cont Eq pk 0.7 cm Mitral E Point Velocity 69.1 cm/s Mitral A Point Velocity 99.2 cm/s Mitral E to A Ratio 0.7 TV Peak Velocity 285.0 cm/s TR Peak Velocity 274.0 cm/s TR Peak Gradient 30.0 mmHg Right Atrial Pressure 10.0 mmHg Pulmonary Artery Systolic Pressu 40.0 mmHg Right Ventricular Systolic Press 40.0 mmHg PV Peak Velocity 168.0 cm/s PV Peak Gradient 11.3 mmHg FINDINGS LEFT VENTRICLE Wall thickness is measured at the upper limits of normal. Normal left ventricular size. The left ventricular systolic function is normal with an estimated ejection fraction in the range of 60-65%. RIGHT VENTRICLE Normal right ventricular size and systolic function. LEFT ATRIUM The left atrial size is normal. RIGHT ATRIUM The right atrial size is normal. ATRIAL SEPTUM Normal atrial septal thickness without atrial level shunting by limited color doppler interrogation. AORTA The aortic root and proximal ascending aorta are normal in size on limited imaging. MITRAL VALVE Structurally normal mitral valve. No mitral valve stenosis or regurgitation. AORTIC VALVE Transcatheter aortic valve replacement Normal function No perivalvular leak TRICUSPID VALVE There is trace tricuspid valve regurgitation. The estimated pulmonary arterial pressure is 40 mmHg. PULMONARY VALVE No pulmonary valve regurgitation or stenosis. VESSELS The inferior vena cava is normal in size. PERICARDIUM No pericardial effusion. Leonardo Fox MD, FACC (Electronically Signed) Final Date:17 February 2018 12:02
[2018-02-17 13:06] VITALS: PULSE 76; RESP 16
--- NOTE | 2018-02-17 19:20 | ECG ---
Date Performed: 02/17/2018 Time Performed: 04:55:58 PTAGE: 72 years EKG: Sinus rhythm . Possible left ventricular hypertrophy Inferior/lateral ST-T changes are probably due to ventricular hypertrophy Abnormal ECG PREVIOUS TRACING : 02/16/2018 13.25 Since the previous tracing, no significant change noted DOCTOR: Aureliano Alexander Interpretating Date/Time 02/17/2018 19:19:36
== END 2018-02-17 14:21 | disposition home or self-care (01) ==
LOC: HSDI 07:58 → HDIC 08:05 → HCVI 13:22
PROVIDERS: ADMIT Internal Medicine; ATTEND Internal Medicine
PROC: TAVRHYB (ICD-10-PCS; 2018-02-16 10:48)